=== PATIENT | male | born 1960 | race Hispanic/Latino ===

== ENCOUNTER 2018-10-05 16:27 | Inpatient (IN) | payer SELFPAY ==
[2018-10-05] MEDS ORDERED: Diltiazem 125 MG/25 ML ONE ×2 (16:48→18:38)
[2018-10-05 16:51] LABS: #Basophils 0.1 thou/uL (0.0-0.2); #Eosinphils 0.1 thou/uL (0.0-0.7); #Lymphocytes 2.5 thou/uL (1.20-3.40); #Monocytes 0.9 thou/uL (0.11-0.59); #Neutrophils 6.8 thou/uL (1.40-6.50); %Basophils 0.9 % (0.0-1.0); %Eosinophils 0.7 % (0.0-10.0); %Lymphocytes 24.1 % (21.0-51.0); %Monocytes 8.8 % (0.0-10.0); %Neutrophils 65.5 % (42.0-75.0); Hemoglobin 14.5 g/dL (12.0-16.0); Mean Corpuscular HGB CONC 31.5 g/dL (32.0-36.0); Mean Corpuscular Volume 95.3 fL (78.0-98.0); Mean Platelet Volume 9.6 fL (7.4-10.4); Platelet Count 224 thou/uL (130-400); RBC Distribution Width 12.5 % (11.5-14.5); Red Blood Cell (RBC) Count 4.84 mill/uL (4.20-5.40); White Blood Cell (WBC) Count 10.3 thou/uL (4.8-10.8)
[2018-10-05 17:14] LABS: ALT (SGPT) 21 U/L (8-55); AST (SGOT) 19 U/L (5-34); Albumin 3.8 g/dL (3.5-5.0); Alkaline Phosphatase 56 U/L (40-150); Anion Gap 15 mmol/L (10-20); BUN (Urea Nitrogen) 14 mg/dL (9.8-20.1); Bilirubin, Total 0.8 mg/dL (0.2-1.2); CK (CPK) 48 U/L (29-168); Calc. Creatinine Clearance 0 mL/min (70-130); Calcium 9.3 mg/dL (7.8-10.44); Carbon Dioxide 25 mmol/L (22-29); Chloride 100 mmol/L (98-107); Estimated GFR-MDRD 57; Globulin 3.8 g/dL (2.4-3.5); Glucose 206 mg/dL (70-105); Potassium 4.3 mmol/L (3.5-5.1); Protein, Total 7.6 g/dL (6.0-8.3); Sodium 136 mmol/L (136-145)
[2018-10-05 17:19] LABS: CKMB 1.5 ng/mL (0-6.6); Troponin I Less than 0.010 ng/mL (< 0.028)
--- NOTE | 2018-10-05 17:29 | RAD ---
PORTABLE CHEST: 10/05/18 HISTORY: Shortness of breath. Comparison made to film earlier today ate 3 p.m. FINDINGS/IMPRESSION: Heart is mildly prominent but is accentuated by this projection. Lungs appear clear with no infiltrat e or significant effusion. The left CP angle is poorly evaluated on this portable film but was shown to be obscured on the film earlier today indicating left effusion and left basilar atelectasis. No evidence of interval change. POS: [facility]
[2018-10-05] MEDS ORDERED: Enoxaparin Sodium 80 MG/0.8 ML SYRINGE ONE (18:10)
[2018-10-05] MEDS ORDERED: Enoxaparin Sodium 40 MG/0.4 ML SYRINGE ONE (18:10)
--- NOTE | 2018-10-05 19:03 | PDOC.FPRHP ---
- History of Present Illness Chief Complaint: increased SOB with exertion and laying down History of Present Illness: Patient is a 58YO gentleman w/ a PMH significant for morbid obesity, DMII, and h /o multiple DVTs who presented to the ED with a CC of progressively worsening SOB with exertion and while laying down for the last 2.5 weeks. The patient stated that about 2.5 weeks ago he started to notice that he would wake up at night feeling like he "was drowning" about 2-3 hours after laying down in bed. He was using about 2-3 pillows to prop himself up in bed and would still wake up at night feeling SOB. He also endorsed worsening SOB with exertion. He said that his symptoms had gotten so severe that doing things as simple as walking from his bedroom to his kitchen or taking a shower had become exhausting. He therefore decided that it was time he come the ED for further evaluation. He also endorsed increased swelling in his B/L lower extremities, abdominal tightness or distension, unintentional weight gain, and a cough productive of yellow tinged sputum. He denied any associated chest pain, palpitations, or wheezing. ED Course: Patient was given diltiazem doses of 10, 15, and 20 mg and therapeutic lovenox @ 120mg. He was then started on a diltiazem drip at 5mg/hr. - Allergies/Adverse Reactions Allergies Allergy/AdvReac Type Severity Reaction Status Date / Time No Known Allergies Allergy Verified 10/06/18 04:10 - Home Medications Medication Instructions Recorded Confirmed Type No Known 10/06/18 10/06/18 History - History PMHx: DMII, h/o multiple DVTs, h/o septicemia PSHx: L knee arthroscopy & R knee surgery, lap band surgery in 2004 FHx: Grandmother - DMII Social: Lives with his mother and brother in [place]. Denies any heavy tobacco use , will just occasionally smoke a cigar. Drinks very sporadically. - Vital signs BP: 155/118 HR: 120s-130s RR: 18 Tmax: 98.7F Pox: 98% on RA Wt: 179.441 kg - Physical Exam Constitutional: NAD, awake, alert and oriented, well developed HEENT: normocephalic and atraumatic, conjunctiva clear, grossly normal vision, grossly normal hearing Neck: FROM Heart: normal S1/S2 (tachycardic with an irregularly irregular rhythm), other (~ 1+ pitting edema in B/L LEs to just below the knees) Lungs: CTAB, no respiratory distress, good air movement, no rales/rhonchi Abdomen: soft, non-tender, bowel sounds present, other (distension present) Musculoskeletal: normal structure, ROM grossly normal Neurological: no focal deficit -Neurological: symmetric facial movements & speech Skin: no rash/lesions, no jaundice -Skin: skin changes consistent with chronic venous stasis in B/L LEs Heme/Lymphatic: no unusual bruising or bleeding, no purpura Psychiatric: normal mood and affect, good judgment and insight, intact recent and remote memory FMR H&P: Results - Labs Result Diagrams: 10/06/18 06:09 10/06/18 04:43 Lab results: WBC 10.3 thou/uL (4.8-10.8) 10/05/18 16:35 Hgb 14.5 g/dL (12.0-16.0) 10/05/18 16:35 Hct 46.1 % (36.0-47.0) 10/05/18 16:35 MCV 95.3 fL (78.0-98.0) 10/05/18 16:35 Plt Count 224 thou/uL (130-400) 10/05/18 16:35 Neutrophils % 65.5 % (42.0-75.0) 10/05/18 16:35 Sodium 136 mmol/L (136-145) 10/05/18 16:35 Potassium 4.3 mmol/L (3.5-5.1) 10/05/18 16:35 Chloride 100 mmol/L (98-107) 10/05/18 16:35 Carbon Dioxide 25 mmol/L (22-29) 10/05/18 16:35 BUN 14 mg/dL (9.8-20.1) 10/05/18 16:35 Creatinine 1.00 mg/dL (0.6-1.1) 10/05/18 16:35 Glucose 206 mg/dL (70-105) H 10/05/18 16:35 Calcium 9.3 mg/dL (7.8-10.44) 10/05/18 16:35 Total Bilirubin 0.8 mg/dL (0.2-1.2) 10/05/18 16:35 AST 19 U/L (5-34) 10/05/18 16:35 ALT 21 U/L (8-55) 10/05/18 16:35 Alkaline Phosphatase 56 U/L (40-150) 10/05/18 16:35 Creatine Kinase 48 U/L (29-168) 10/05/18 16:35 CK-MB (CK-2) 1.5 ng/mL (0-6.6) 10/05/18 16:35 B-Natriuretic Peptide 349.2 pg/mL (0-100) H 10/05/18 16:35 Serum Total Protein 7.6 g/dL (6.0-8.3) 10/05/18 16:35 Albumin 3.8 g/dL (3.5-5.0) 10/05/18 16:35 - Radiology Interpretation Chest x-ray Status: report reviewed by me Additional comment: L-sided pleural effusion w/ bibasilar atelectasis. FMR H&P: A/P - Problem List (1) Atrial fibrillation, new onset Current Visit: Yes Status: Acute Priority: High Code(s): I48.91 - UNSPECIFIED ATRIAL FIBRILLATION (2) Acute exacerbation of CHF (congestive heart failure) Current Visit: Yes Status: Acute Code(s): I50.9 - HEART FAILURE, UNSPECIFIED Qualifiers: Heart failure type: unspecified Qualified Code(s): I50.9 - Heart failure, unspecified (3) Diabetes type 2, uncontrolled Current Visit: Yes Status: Chronic Code(s): E11.65 - TYPE 2 DIABETES MELLITUS WITH HYPERGLYCEMIA Qualifiers: Glycemic state: with hyperglycemia Qualified Code(s): E11.65 - Type 2 diabetes mellitus with hyperglycemia (4) History of DVT of lower extremity Current Visit: Yes Status: Acute Code(s): Z86.718 - PERSONAL HISTORY OF OTHER VENOUS THROMBOSIS AND EMBOLISM (5) Morbid obesity with BMI of 40.0-44.9, adult Current Visit: Yes Status: Acute Code(s): E66.01 - MORBID (SEVERE) OBESITY DUE TO EXCESS CALORIES; Z68.41 - BODY MASS INDEX (BMI) 40.0-44.9, ADULT - Plan 58YO very pleasant gentleman w/ a PMH significant for morbid obesity, DMII, and a h/o multiple DVTs who presented to the ED with a CC of worsening SOB with exertion and during sleep that has gotten progressively worse over the last 2.5 weeks who was found to be in a fib with RVR. New onset atrial fibrillation w/ RVR: - Patient was given 3 IV boluses of diltiazem: 10, 15, and 20mg respectively and was then started on a dilt drip at 5mg/hr. Will titrate up PRN. - Will order an echo and consult cardiology in the morning. - Will check a CBC, TSH, Mg, and phos level. Will order a FLP for in the AM as well for CV risk stratification. - Was given 120mg of lovenox in the ED. Will give an additional 60mg tonight and continue on therapeutic lovenox dose at max dose of 180mg BID. - Will make NPO after midnight in anticipation of need for possible cardioversion if patient does not convert overnight. Acute CHF exacerbation: - Patient presented with classic sxs of CHF exacerbation and appears mildly volume overloaded. However, stable on RA not requiring any supplemental O2. - Will give a one-time dose of 40mg IV lasix and check a BMP in the AM. - Will get QD weights, strict I&Os and start on a HH, low salt, fluid- restricted up to 1500mL, CC diet. - Will get an echo in the AM and consult cardiology. - Risk stratification testing as described above. Poorly controlled DMII: - Random BG level of 206 on presentation w/ an A1c of 9.5 signaling patient has poorly controlled DMII. - Will start on mild SSI since patient is insulin naive and order ACHS BG checks and hypoglycemia protocol. - Will consider initiating metformin therapy in the AM in addition to a GLP-1 agonist. - Will start on CC diet and order DM education. - FLP pending for the AM as patient will likely also benefit from statin therapy. h/o DVT: - Aware and patient states he is currently not on any anticoagulation at home. - Labwork pending to risk stratify. - Currently on therapeutic lovenox for atrial fibrillation. FMR H&P: Upper Level - Pertinent history Mr. Samuels is a 58 yo M with a PMHx of morbid obesity, T2DM and h/o multiple DVTs (not on chronic anticoagulation) who presented to the ED with a cc of worsening shortness of breath over the last 2 weeks as well as decreased appetite and abdominal fullness. He has also noticed difficulty lying flat with minimal relief propping up with pillows. He has woken up multiple times feeling short of breath. He also endorses activity intolerance getting winded with any activity. He denies palpitations or chest pain. - Pertinent findings EKG: a fib with RVR CXR reviewed Gen: awake, alert, oriented x3 HEENT: atraumatic, normocephalic CV: irregularly irregular, tachycardic RESP: CTAB, diminished at bases BL ABD: nontender, significant abdominal obesity EXT: skin darknening BL lower extremities, 1+ pitting edema to knees BL SKIN: darkening on BL lower shins/ankles, nails thickened PULSES: 1+ BL radial - Plan Date/Time: 10/05/18 1901 58 yo M with new onset a fib with RVR 1. New onset a fib with RVR: s/p 3 dilt bolus. Will start drip at 5 and titrate with goal rate control < 100-110 bpm. Monitor for symptoms. BP stable at this time and asymptomatic. Echo and cardiology consult in the am. FLP, electrolytes and DM workup as below. Tx lovenox. NPO at MN with fluid restr to 1500 mL. Daily weights. 2. Suspected CHF: BNP elevated. Symptoms c/w CHF. Will give 40 IV lasix, fluid restrict and monitor strict I/Os. 3. H/o T2DM: Will check a1c and start mild SSI. Will recommend statin pending FLP 4. H/o DVT: Per patient was not indicated to be on assisted anticoagulation. Will recommend f/u outpatient for risk stratification. At this time, requiring tx lovenox for a fib with RVR. 5. Morbid obesity: Patient has had lap band but has not followed up in years. Recommend OP f/u and weight loss to aid in curbing comorbidities. I, Xi Gallo MD, PGY-3, have evaluated this patient and agree with findings/ plan as outlined by international controller resident. Pertinent changes/additions are listed here. Attending Addendum - Attending Addendum Date/Time: 10/06/18 1122 I personally evaluated the patient and discussed the management with Dr. Miner/ Sabino. I agree with the History, Examination, Assessment and Plan documented above with any addition or exceptions noted below.
[2018-10-05] MEDS ORDERED: Ondansetron PF 4 MG/2 ML Vial IVP PRN (19:47)
[2018-10-05] MEDS ORDERED: Furosemide 40 MG/4 ML VIAL SLOW IVP SCH (20:00)
[2018-10-05] MEDS ORDERED: Dextrose 5% in Water 1,000 ML IV PRN (20:24)
[2018-10-05] MEDS ORDERED: Dextrose 50% Abboject 50 ML SYRINGE SLOW IVP PRN (20:24)
[2018-10-05] MEDS ORDERED: Diltiazem 125 MG in Sodium Chloride 0.9% 100 ML IVPB SCH ×2 (20:30→21:00)
[2018-10-05 20:47] VITALS: BMI 58.3
[2018-10-05 20:59] LABS: Hemoglobin A1c 9.5 % (4.0-6.0)
[2018-10-05] MEDS ORDERED: Enoxaparin Sodium 60 MG/0.6 ML SYRINGE SC SCH (21:00)
[2018-10-05] MEDS ORDERED: Guaifenesin DM 100-10/5 ML UDCUP PO PRN (22:39)
[2018-10-05] MEDS: Benzonatate 100 MG CAP PO PRN (22:52)
[2018-10-05 23:11] LABS: Troponin I 0.017 ng/mL (< 0.028)
[2018-10-06 05:19] LABS: Anion Gap 12 mmol/L (10-20); BUN (Urea Nitrogen) 13 mg/dL (8.4-25.7); Calc. Creatinine Clearance 179 mL/min (70-130); Calcium 8.9 mg/dL (7.8-10.44); Carbon Dioxide 24 mmol/L (22-29); Cardiac Risk 3.4 (Less than 4.5); Chloride 103 mmol/L (98-107); Cholesterol 128 mg/dl (< 200 Desired); Estimated GFR-MDRD Greater than 90; Glucose 208 mg/dL (70-105); HDL Cholesterol 38 mg/dL (>60 Neg Risk); LDL Cholesterol, Calculated 73 mg/dL; Magnesium 1.7 mg/dL (1.6-2.6); Phosphorus 3.8 mg/dL (2.3-4.7); Potassium 3.9 mmol/L (3.5-5.1); Sodium 135 mmol/L (136-145); Triglycerides 86 mg/dL (Less than 150)
[2018-10-06 06:19] LABS: #Eosinphils 0.1 thou/uL (0.0-0.7); #Lymphocytes 2.1 thou/uL (1.20-3.40); #Monocytes 0.7 thou/uL (0.11-0.59); #Neutrophils 5.1 thou/uL (1.40-6.50); %Basophils 0.5 % (0.0-1.0); %Lymphocytes 26.5 % (21.0-51.0); %Monocytes 8.5 % (0.0-10.0); %Neutrophils 63.6 % (42.0-75.0); Hemoglobin 12.6 g/dL (14.0-18.0); Mean Corpuscular HGB CONC 32.3 g/dL (32.0-36.0); Mean Corpuscular Hemoglobin 30.5 pg (27.0-31.0); Mean Corpuscular Volume 94.4 fL (78.0-98.0); Mean Platelet Volume 9.2 fL (7.4-10.4); Platelet Count 192 thou/uL (130-400); RBC Distribution Width 12.4 % (11.5-14.5); Red Blood Cell (RBC) Count 4.13 mill/uL (4.70-6.10)
[2018-10-06] MEDS ORDERED: metFORMIN 500 MG TAB PO SCH (08:00)
[2018-10-06] MEDS: Benzonatate 100 MG CAP PO PRN (08:40)
[2018-10-06] MEDS ORDERED: Enoxaparin Sodium 100 MG/ML SYRINGE SC SCH ×2 (09:00→21:00)
[2018-10-06] MEDS ORDERED: Lisinopril 2.5 MG TAB PO SCH (09:00)
[2018-10-06] MEDS ORDERED: Enoxaparin Sodium 80 MG/0.8 ML SYRINGE SC SCH (09:00)
--- NOTE | 2018-10-06 10:37 | PDOC.FM ---
- Subjective Subjective: Patient denies SOB, palpitations, chest pain. No other complaints at this time. - Objective MAR Reviewed: Yes Vital Signs & Weight: Vital Signs (12 hours) Temp Pulse Resp BP Pulse Ox 10/06/18 08:40 110 H 10/06/18 08:00 94 L 10/06/18 07:36 98 F 110 H 18 124/57 L 93 L 10/06/18 03:24 98.2 F 109 H 19 139/106 H 93 L 10/06/18 00:00 133 H 172/80 H Weight Weight 132.313 kg I&O: 10/05/18 10/06/18 10/07/18 06:59 06:59 06:59 Intake Total 598 Output Total 1650 Balance -1052 Result Diagrams: 10/06/18 06:09 10/06/18 04:43 <Charis Nichole - Last Filed: 10/06/18 10:32> - Objective Vital Signs & Weight: Vital Signs (12 hours) Temp Pulse Resp BP Pulse Ox 10/06/18 08:40 110 H 10/06/18 08:00 94 L 10/06/18 07:36 98 F 110 H 18 124/57 L 93 L 10/06/18 03:24 98.2 F 109 H 19 139/106 H 93 L 10/06/18 00:00 133 H 172/80 H Weight Weight 132.313 kg I&O: 10/05/18 10/06/18 10/07/18 06:59 06:59 06:59 Intake Total 598 Output Total 1650 Balance -1052 Result Diagrams: 10/06/18 06:09 10/06/18 04:43 <Jose Ramon Talbot - Last Filed: 10/06/18 11:35> Phys Exam - Physical Examination Constitutional: NAD morbidly obese HEENT: PERRLA, moist MMs Neck: full ROM Respiratory: no wheezing, no rales, clear to auscultation bilateral Cardiovascular: RRR, no significant murmur Gastrointestinal: soft, non-tender, no distention Musculoskeletal: no edema, pulses present Neurological: non-focal, moves all 4 limbs Psychiatric: normal affect, A&O x 3 Skin: no rash, normal turgor <Charis Nichole - Last Filed: 10/06/18 10:32> Dx/Plan (1) Atrial fibrillation, new onset Code(s): I48.91 - UNSPECIFIED ATRIAL FIBRILLATION Status: Acute (2) Diabetes type 2, uncontrolled Code(s): E11.65 - TYPE 2 DIABETES MELLITUS WITH HYPERGLYCEMIA Status: Chronic Qualifiers: Glycemic state: with hyperglycemia Qualified Code(s): E11.65 - Type 2 diabetes mellitus with hyperglycemia (3) Hypertension Code(s): I10 - ESSENTIAL (PRIMARY) HYPERTENSION Status: Acute (4) Acute exacerbation of CHF (congestive heart failure) Code(s): I50.9 - HEART FAILURE, UNSPECIFIED Status: Acute Qualifiers: Heart failure type: unspecified Qualified Code(s): I50.9 - Heart failure, unspecified (5) History of DVT of lower extremity Code(s): Z86.718 - PERSONAL HISTORY OF OTHER VENOUS THROMBOSIS AND EMBOLISM Status: Acute (6) CHA on CPAP Code(s): G47.33 - OBSTRUCTIVE SLEEP APNEA (ADULT) (PEDIATRIC); Z99.89 - DEPENDENCE ON OTHER ENABLING MACHINES AND DEVICES Status: Acute (7) Morbid obesity with BMI of 40.0-44.9, adult Code(s): E66.01 - MORBID (SEVERE) OBESITY DUE TO EXCESS CALORIES; Z68.41 - BODY MASS INDEX (BMI) 40.0-44.9, ADULT Status: Acute - Plan Plan: 58 yo M with new onset Afib with RVR New onset Afib with RVR -Currently rate controlled <110 on Dilt drip at 10units; therapeutic lovenox- continue current medical mgmt -TSH, electrolytes negative, FLP nml, CE negative x3 -Patient has not seen PCP in years, not taking any meds -Contributing factors: uncontrolled hypertension, new onset CHF (elevated BNP) -Echo pending -Will consult cardiology, recs appreciated regarding oral medication transition & further management DM2, uncontrolled -A1c 9.5 -Will start on metformin Acute CHF exacerbation -fluid restrict diet, give lasix as needed -non-hypoxic on RA -strict I/O, daily weights -pending echo HTN -Start on lisinopril Hx of DVTs -On therpeutic lovenox CHA on CPAP -Continue CPAP while in hospital Morbid obesity -counseled on weight loss Dvt ppx: th. lovenox GI ppx: none Discussed with Dr. Talbot <Charis Nichole - Last Filed: 10/06/18 10:32> (1) Atrial fibrillation, new onset Code(s): I48.91 - UNSPECIFIED ATRIAL FIBRILLATION Status: Acute (2) Acute exacerbation of CHF (congestive heart failure) Code(s): I50.9 - HEART FAILURE, UNSPECIFIED Status: Acute Qualifiers: Heart failure type: unspecified Qualified Code(s): I50.9 - Heart failure, unspecified (3) Diabetes type 2, uncontrolled Code(s): E11.65 - TYPE 2 DIABETES MELLITUS WITH HYPERGLYCEMIA Status: Chronic Qualifiers: Glycemic state: with hyperglycemia Qualified Code(s): E11.65 - Type 2 diabetes mellitus with hyperglycemia (4) History of DVT of lower extremity Code(s): Z86.718 - PERSONAL HISTORY OF OTHER VENOUS THROMBOSIS AND EMBOLISM Status: Acute (5) Morbid obesity with BMI of 40.0-44.9, adult Code(s): E66.01 - MORBID (SEVERE) OBESITY DUE TO EXCESS CALORIES; Z68.41 - BODY MASS INDEX (BMI) 40.0-44.9, ADULT Status: Acute <Jose Ramon Talbot - Last Filed: 10/06/18 11:35> Attending Addendum - Attending Addendum Date/Time: 10/06/18 1433 I personally evaluated the patient and discussed the management with Dr. Nichole. I agree with the History, Examination, Assessment and Plan documented above with any addition or exceptions noted below. Patient feeling improved. TSH normal. Echo pending. Continue Dilt drip and consult cardiology for new onset Afib. Continue anticoagulation. Diurese if needed. Arrange for Bipap at night for his chronic CHA. <Jose Ramon Talbot - Last Filed: 10/06/18 11:35>
--- NOTE | 2018-10-06 15:09 | CON ---
DATE OF CONSULTATION: 10/06/2018 CARDIOLOGY CONSULTATION REASON FOR CONSULTATION: Atrial fibrillation with rapid ventricular response. HISTORY OF PRESENT ILLNESS: Mr. Samuels is a very pleasant 58-year-old white gentleman who comes t o the hospital for shortness of breath. He has noticed that for the last few weeks he has not been a ble to lay down on his back without feeling short-winded. He has always used about 3 pills, but at t his time he had to fold the pills in half to try to be comfortable. He would fall asleep and he woul d wake up a few hours later gasping for air. He would have to sit up to breathe better. It got to t he point where it was extremely bad. He could not even lay back without choking, so he decided to co me in for evaluation. He was found to be in atrial fibrillation with RVR and he was started on dilti azem drip slowing down and he is already feeling a little bit better, but Cardiology has been consult ed for his atrial fibrillation and possible new onset heart failure. He has never had any heart prob lems in the past. He has never seen a licensed master social worker before. PAST MEDICAL HISTORY: 1. Type 2 diabetes. 2. History of multiple DVTs in the past. He has had at least 2 in the right leg. I asked him if he had ever been told he had a clotting disorder. He tells me that he thinks it was for multiple traum as. 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 SURGICAL HISTORY: 1. Left knee arthroscopy. 2. Right knee surgery. 3. Laparoscopic band surgery in 2004. FAMILY HISTORY: Noncontributory. SOCIAL HISTORY: Lives with mother and brother. No alcohol, tobacco, or drugs. He smokes cigar occa sionally. Social alcohol use. OUTPATIENT MEDICATIONS: None. ALLERGIES: No known drug allergies. REVIEW OF SYSTEMS: A 12-point review of systems was done and it is all negative unless stated in the history of present illness. PHYSICAL EXAMINATION: VITAL SIGNS: Temperature 97.9, pulse 116, respiration rate 18, satting 95% on 2 liters and blood pre ssure 125/65. GENERAL: Awake, alert, oriented x3, in no distress. HEENT: Normocephalic, atraumatic. NECK: Supple. LUNGS: Distant but I can hear specifically any crackles. CARDIOVASCULAR: S1, S2, no S3, S4, no murmurs. ABDOMEN: Soft with bowel sounds. EXTREMITIES: 2+ edema. SKIN: Warm and dry. LABORATORY DATA: Laboratory work was reviewed. His CBC; white count of 10.3 and on arrival now 8.0, hemoglobin went from 14.5-12.6 and platelet count 192. Chemistry was unremarkable. Sugar 208, trig lycerides of 86, cholesterol total 128, LDL of 73, HDL of 38. TSH was normal. IMAGING DATA: Chest x-ray was reviewed, not well penetrated due to size, could have a small pleural effusion on the left side, but lungs appear clear. ASSESSMENT: 1. New onset of atrial fibrillation with rapid ventricular response. 2. Possible new onset heart failure, unknown if it systolic versus diastolic. 3. Morbid obesity. 4. Diabetes on no medications. 5. History of deep vein thrombosis. PLAN: 1. Continue rate control with diltiazem drip. 2. We would continue full anticoagulation with Lovenox subcutaneous in case he needs to have a heart catheterization in the next few days. 3. Would consider doing a CT per PE protocol given his history of DVTs and new onset atrial fibrilla tion. 4. Echocardiogram pending. This will pretty much guide our therapy as I am not sure if this is a ne w onset cardiomyopathy that is just complicated with atrial fibrillation versus his atrial fibrillati on making him symptomatic and causing him to have fluid overload and having PND and orthopnea. Eithe r way he needs a dose of IV Lasix which has already received and see how he does with this. We will adjust the Lovenox dose to 1 mg per kilo b.i.d. Thank you for letting us to participate in the care of your patient. We will continue to follow. Mo re recommendations pending results of echocardiogram.
[2018-10-06] MEDS: metFORMIN 500 MG TAB PO SCH (17:32)
[2018-10-06] MEDS: Atorvastatin Calcium 40 MG TAB PO SCH (20:19)
[2018-10-06] MEDS ORDERED: Enoxaparin Sodium 30 MG/0.3 ML SYRINGE SC SCH (21:00)
[2018-10-06] MEDS ORDERED: Loperamide HCl 2 MG CAP PO PRN (23:06)
--- NOTE | 2018-10-07 06:44 | PDOC.FM ---
- Subjective Subjective: No acute events overnight. No concerns at this time. - Objective MAR Reviewed: Yes Vital Signs & Weight: Vital Signs (12 hours) Temp Pulse Resp BP BP Pulse Ox 10/07/18 03:48 98.0 F 81 20 134/89 100 10/06/18 23:13 99 16 97 10/06/18 23:08 98.3 F 95 20 123/81 95 10/06/18 20:16 99.0 F 115 H 18 177/102 H 99 Weight Weight 177.082 kg I&O: 10/05/18 10/06/18 10/07/18 06:59 06:59 06:59 Intake Total 598 1505 Output Total 1650 925 Balance -1052 580 Result Diagrams: 10/06/18 06:09 10/06/18 04:43 <Charis Nichole - Last Filed: 10/07/18 10:09> - Objective Vital Signs & Weight: Vital Signs (12 hours) Temp Pulse Resp BP BP BP Pulse Ox 10/07/18 09:25 102 H 10/07/18 08:00 97.9 F 102 H 16 127/71 95 10/07/18 03:48 98.0 F 81 20 134/89 100 10/06/18 23:13 99 16 97 10/06/18 23:08 98.3 F 95 20 123/81 95 Weight Weight 177.082 kg I&O: 10/06/18 10/07/18 10/08/18 06:59 06:59 06:59 Intake Total 598 1505 Output Total 1650 925 Balance -1052 580 Result Diagrams: 10/06/18 06:09 10/06/18 04:43 <Jose Ramon Talbot - Last Filed: 10/07/18 11:07> Phys Exam - Physical Examination Constitutional: NAD HEENT: moist MMs, sclera anicteric Neck: full ROM Respiratory: no wheezing, wheezing present, clear to auscultation bilateral difficulty assessing due to body habitus Cardiovascular: RRR, no significant murmur, no rub Gastrointestinal: soft, non-tender, no distention Musculoskeletal: no edema, pulses present BLE edema with stasis dermatitis Neurological: non-focal, moves all 4 limbs Lymphatic: no nodes Psychiatric: normal affect, A&O x 3 Skin: cap refill <2 seconds <Charis Nichole - Last Filed: 10/07/18 10:09> Dx/Plan (1) Atrial fibrillation, new onset Code(s): I48.91 - UNSPECIFIED ATRIAL FIBRILLATION Status: Acute (2) Diabetes type 2, uncontrolled Code(s): E11.65 - TYPE 2 DIABETES MELLITUS WITH HYPERGLYCEMIA Status: Chronic Qualifiers: Glycemic state: with hyperglycemia Qualified Code(s): E11.65 - Type 2 diabetes mellitus with hyperglycemia (3) Hypertension Code(s): I10 - ESSENTIAL (PRIMARY) HYPERTENSION Status: Acute (4) Acute exacerbation of CHF (congestive heart failure) Code(s): I50.9 - HEART FAILURE, UNSPECIFIED Status: Acute Qualifiers: Heart failure type: unspecified Qualified Code(s): I50.9 - Heart failure, unspecified (5) History of DVT of lower extremity Code(s): Z86.718 - PERSONAL HISTORY OF OTHER VENOUS THROMBOSIS AND EMBOLISM Status: Acute (6) CHA on CPAP Code(s): G47.33 - OBSTRUCTIVE SLEEP APNEA (ADULT) (PEDIATRIC); Z99.89 - DEPENDENCE ON OTHER ENABLING MACHINES AND DEVICES Status: Acute (7) Morbid obesity with BMI of 40.0-44.9, adult Code(s): E66.01 - MORBID (SEVERE) OBESITY DUE TO EXCESS CALORIES; Z68.41 - BODY MASS INDEX (BMI) 40.0-44.9, ADULT Status: Acute - Plan Plan: 58 yo M with new onset Afib with RVR New onset Afib with RVR -Was not rate controlled overnight pulse in 140s while on dilt drip, currently rate controlled -Continue th. lovenox -Pending echo results to guide management, Dr. Read is following -CTA today to continue workup of etiology HTN -BPs into high 190s -There could be fluid overload component from acute CHF -Will inc. lisinopril to 5mg -Will also give dose of lasix DM2, uncontrolled -Continue metformin Acute CHF exacerbation -fluid restrict diet -non-hypoxic on RA, had few hypoxic episodes last night requiring supp. O2 -strict I/O, daily weights -pending echo Hx of DVTs -On therapeutic lovenox CHA -Continue CPAP while in hospital Morbid obesity -counseled on weight loss Dvt ppx: th. lovenox GI ppx: none Discussed with Dr. Talbot <Charis Nichole - Last Filed: 10/07/18 10:09> (1) Atrial fibrillation, new onset Code(s): I48.91 - UNSPECIFIED ATRIAL FIBRILLATION Status: Acute (2) Acute exacerbation of CHF (congestive heart failure) Code(s): I50.9 - HEART FAILURE, UNSPECIFIED Status: Acute Qualifiers: Heart failure type: unspecified Qualified Code(s): I50.9 - Heart failure, unspecified (3) Diabetes type 2, uncontrolled Code(s): E11.65 - TYPE 2 DIABETES MELLITUS WITH HYPERGLYCEMIA Status: Chronic Qualifiers: Glycemic state: with hyperglycemia Qualified Code(s): E11.65 - Type 2 diabetes mellitus with hyperglycemia (4) History of DVT of lower extremity Code(s): Z86.718 - PERSONAL HISTORY OF OTHER VENOUS THROMBOSIS AND EMBOLISM Status: Acute (5) Morbid obesity with BMI of 40.0-44.9, adult Code(s): E66.01 - MORBID (SEVERE) OBESITY DUE TO EXCESS CALORIES; Z68.41 - BODY MASS INDEX (BMI) 40.0-44.9, ADULT Status: Acute <Jose Ramon Talbot - Last Filed: 10/07/18 11:07> Attending Addendum - Attending Addendum Date/Time: 10/07/18 1104 I personally evaluated the patient and discussed the management with Dr. Nichole. I agree with the History, Examination, Assessment and Plan documented above with any addition or exceptions noted below. Patient now rate controlled on Dilt. Awaiting Echo and further cardiology recs. Will obtain CTA as this could be due to PE in setting of his history of DVT not on chronic OAC. Continue on th. lovenox for now. <Jose Ramon Talbot - Last Filed: 10/07/18 11:07>
[2018-10-07] MEDS: metFORMIN 500 MG TAB PO SCH ×2 (09:24→17:17)
[2018-10-07] MEDS: Enoxaparin Sodium 80 MG/0.8 ML SYRINGE SC SCH ×2 (09:25→19:49)
[2018-10-07] MEDS: Enoxaparin Sodium 100 MG/ML SYRINGE SC SCH ×2 (09:25→19:49)
[2018-10-07] MEDS: Lisinopril 5 MG TAB PO SCH (09:25)
[2018-10-07] MEDS ORDERED: ISOVUE-370 76%-LOCM 1 ML ONE (10:13)
[2018-10-07] MEDS: HumaLOG 300 UNITS/3 ML VIAL SC PRN (12:56)
--- NOTE | 2018-10-07 14:34 | PDOC.CTH ---
Cardiology Progress Note - Subjective No new issues. Breathing better. He liked using a BiPAP overnight. - Objective Vital Signs Temp Pulse Resp BP BP BP Pulse Ox 10/07/18 12:00 98 F 98 18 137/81 95 10/07/18 09:25 102 H 10/07/18 08:00 97.9 F 102 H 16 127/71 95 10/07/18 03:48 98.0 F 81 20 134/89 100 Weight 390 lb 6.4 oz 10/06/18 10/07/18 10/08/18 06:59 06:59 06:59 Intake Total 598 1505 240 Output Total 1650 925 Balance -1052 580 240 - Physical Examination General/Neuro: alert & oriented x3, NAD Neck: no JVD present Lungs: CTA, unlabored respirations Heart: RRR Abdomen: NT/ND Extremities: + edema B (2+) - Telemetry Telemetry Rhythm: Afb HR 80's. - Labs Result Diagrams: 10/06/18 06:09 10/06/18 04:43 Troponin/CKMB CK-MB (CK-2) 1.5 ng/mL (0-6.6) 10/05/18 16:35 Troponin I 0.017 ng/mL (< 0.028) 10/05/18 22:38 - Assessment/Plan 1. Afib RVR, new onset. 2. New onset dilated CM EF at 30-35% 3. Morbid obesity. PLAN: - Continue ACEI. - Will switch diltiazem gtt to PO BB. - Will plan on further risk stratification with a [facility]. He is still volume up so will try to dry him up some more and plan on [facility] Wednesday.
--- NOTE | 2018-10-07 15:03 | CT ---
CT ANGIOGRMA CHEST WITH CONTRAST: HISTORY: Chest pain and shortness of breath. COMPARISON: Radiograph of 10/05/2018. FINDINGS: CT angiogram of the chest performed after the intravenous administration of contrast. Three-D render ing was provided. No pericardial effusion. Marked increased in mediastinal fat. The thyroid is unremarkable. Moderate-sized layering bilateral pleural effusions. LAP band is in place. There is a proximal segmental pulmonary arterial filling defect. Mild pulmonary venous congestion. No acute osseous abnormality. IMPRESSION: 1. Moderate bilateral pleural effusions. 2. Mild pulmonary venous congestion. 3. No proximal segmental pulmonary arterial filling defect. POS: [facility]
[2018-10-07] MEDS ORDERED: Furosemide 40 MG/4 ML VIAL SLOW IVP SCH (18:00)
[2018-10-07] MEDS: Atorvastatin Calcium 40 MG TAB PO SCH (19:48)
[2018-10-07] MEDS: Metoprolol Tartrate 25 MG TAB PO SCH (19:49)
[2018-10-08 05:35] LABS: Platelet Count 196 thou/uL (130-400)
--- NOTE | 2018-10-08 05:44 | PDOC.FM ---
- Subjective Subjective: Mr. Samuels reports he did not sleep as well last night with the hospital CPAP. Notes continued SOB with exertion. Denies CP or heart palpitations. Has had a couple watery BMs. Says LE swelling has improved some. Feels nervous about cath on Wednesday and needles associated with procedure. - Objective MAR Reviewed: Yes Vital Signs & Weight: Vital Signs (12 hours) Temp Pulse Resp BP BP Pulse Ox 10/08/18 04:00 98.1 F 71 20 114/71 96 10/08/18 00:00 84 115/73 10/07/18 19:45 98.5 F 107 H 18 139/85 96 Weight Weight 177.082 kg I&O: 10/06/18 10/07/18 10/08/18 06:59 06:59 06:59 Intake Total 598 1505 1320 Output Total 1650 925 550 Balance -1052 580 770 Result Diagrams: 10/08/18 05:04 10/08/18 05:04 <Vangie Mcclendon - Last Filed: 10/08/18 07:44> - Objective Vital Signs & Weight: Vital Signs (12 hours) Temp Pulse Resp BP Pulse Ox 10/08/18 07:50 97.9 F 95 20 139/85 95 10/08/18 04:00 98.1 F 71 20 114/71 96 10/08/18 00:00 84 115/73 Weight Weight 173.272 kg I&O: 10/07/18 10/08/18 10/09/18 06:59 06:59 06:59 Intake Total 1505 1905 Output Total 925 825 Balance 580 1080 Result Diagrams: 10/08/18 05:04 10/08/18 05:04 <Jose Ramon Talbot - Last Filed: 10/08/18 10:05> Phys Exam - Physical Examination Constitutional: NAD HEENT: moist MMs Respiratory: clear to auscultation bilateral Cardiovascular: no significant murmur, irregular (atrial fibrillation) Gastrointestinal: soft (obese), non-tender, no distention, positive bowel sounds Musculoskeletal: edema present (+4 pitting edema LE b/l, chronic venous stasis skin changes) Neurological: moves all 4 limbs Psychiatric: normal affect Skin: normal turgor <Vangie Mcclendon - Last Filed: 11/24/18 07:44> Dx/Plan (1) Atrial fibrillation, new onset Code(s): I48.91 - UNSPECIFIED ATRIAL FIBRILLATION Status: Acute (2) New onset of congestive heart failure Code(s): I50.9 - HEART FAILURE, UNSPECIFIED Status: Acute (3) Acute exacerbation of CHF (congestive heart failure) Code(s): I50.9 - HEART FAILURE, UNSPECIFIED Status: Acute Qualifiers: Heart failure type: unspecified Qualified Code(s): I50.9 - Heart failure, unspecified (4) History of DVT of lower extremity Code(s): Z86.718 - PERSONAL HISTORY OF OTHER VENOUS THROMBOSIS AND EMBOLISM Status: Acute (5) Hypertension Code(s): I10 - ESSENTIAL (PRIMARY) HYPERTENSION Status: Acute (6) CHA on CPAP Code(s): G47.33 - OBSTRUCTIVE SLEEP APNEA (ADULT) (PEDIATRIC); Z99.89 - DEPENDENCE ON OTHER ENABLING MACHINES AND DEVICES Status: Acute (7) Diabetes type 2, uncontrolled Code(s): E11.65 - TYPE 2 DIABETES MELLITUS WITH HYPERGLYCEMIA Status: Chronic Qualifiers: Glycemic state: with hyperglycemia Qualified Code(s): E11.65 - Type 2 diabetes mellitus with hyperglycemia (8) Morbid obesity with BMI of 40.0-44.9, adult Code(s): E66.01 - MORBID (SEVERE) OBESITY DUE TO EXCESS CALORIES; Z68.41 - BODY MASS INDEX (BMI) 40.0-44.9, ADULT Status: Acute - Plan Plan: 58 yo M with new onset Afib with RVR New onset Afib with RVR -currently rate controlled, dilt gtt planned to be stopped yesterday was not discontinued until early this morning. Now on metoprolol 25 bid. - tele overnight, rate was up to 130s-150s for a time but now 70s-90s -Continue th. lovenox -Echo showed 30-35% EF - CTA showed mod b/l pleural effusions, venous congestion, no prox segmental pulmonary artery filling defect -Appreciate recs from Dr. Read, plan for [facility] Wednesday New onset CHF presenting with acute CHF exacerbation -fluid restriction - EF 30-35% -strict I/O, daily weights - diuresing well with good urine output. Down 8 lbs. - Lasix IVP 40 BID HTN -BPs into high 190s -There could be fluid overload component from acute CHF -Continue increased lisinopril dose of 5mg. BP stable. DM2, uncontrolled - Continue metformin - SSI, has required 3 u in past 24 hrs - A1c 9.5 Hx of DVTs -On therapeutic lovenox CHA -Continue CPAP while in hospital Morbid obesity -counseled on weight loss Dvt ppx: therapeutic lovenox GI ppx: none Dispo: pending cath Wednesday <Vangie Mcclendon - Last Filed: 10/08/18 07:44> (1) Atrial fibrillation, new onset Code(s): I48.91 - UNSPECIFIED ATRIAL FIBRILLATION Status: Acute (2) Acute exacerbation of CHF (congestive heart failure) Code(s): I50.9 - HEART FAILURE, UNSPECIFIED Status: Acute Qualifiers: Heart failure type: unspecified Qualified Code(s): I50.9 - Heart failure, unspecified (3) Diabetes type 2, uncontrolled Code(s): E11.65 - TYPE 2 DIABETES MELLITUS WITH HYPERGLYCEMIA Status: Chronic Qualifiers: Glycemic state: with hyperglycemia Qualified Code(s): E11.65 - Type 2 diabetes mellitus with hyperglycemia (4) History of DVT of lower extremity Code(s): Z86.718 - PERSONAL HISTORY OF OTHER VENOUS THROMBOSIS AND EMBOLISM Status: Acute (5) Morbid obesity with BMI of 40.0-44.9, adult Code(s): E66.01 - MORBID (SEVERE) OBESITY DUE TO EXCESS CALORIES; Z68.41 - BODY MASS INDEX (BMI) 40.0-44.9, ADULT Status: Acute <Jose Ramon Talbot - Last Filed: 10/08/18 10:05> Attending Addendum - Attending Addendum Date/Time: 10/08/18 1004 I personally evaluated the patient and discussed the management with Dr. Ha. I agree with the History, Examination, Assessment and Plan documented above with any addition or exceptions noted below. Patient doing well this morning. Echo completed and is now rate controlled off Diltiazem. Will increase Metoprolol today. Plan is for C on Wednesday and continued diuresis until then. <Jose Ramon Talbot - Last Filed: 10/08/18 10:05>
[2018-10-08 05:57] LABS: Calc. Creatinine Clearance 249 mL/min (70-130); Estimated GFR-MDRD Greater than 90
[2018-10-08] MEDS: Furosemide 40 MG/4 ML VIAL SLOW IVP SCH ×2 (06:15→13:52)
[2018-10-08] MEDS ORDERED: Sodium Chloride 0.9% 10 ML ONE (08:40)
[2018-10-08] MEDS: Lisinopril 5 MG TAB PO SCH (09:02)
[2018-10-08] MEDS: Metoprolol Tartrate 25 MG TAB PO SCH (09:02)
[2018-10-08] MEDS: metFORMIN 500 MG TAB PO SCH ×2 (09:02→16:15)
[2018-10-08] MEDS: Enoxaparin Sodium 80 MG/0.8 ML SYRINGE SC SCH ×2 (09:02→21:14)
[2018-10-08] MEDS: Enoxaparin Sodium 100 MG/ML SYRINGE SC SCH ×2 (09:03→21:14)
[2018-10-08] MEDS ORDERED: Metoprolol Tartrate 25 MG TAB PO SCH (09:45)
[2018-10-08] MEDS: HumaLOG 300 UNITS/3 ML VIAL SC PRN (11:02)
[2018-10-08] MEDS: Atorvastatin Calcium 40 MG TAB PO SCH (21:13)
[2018-10-08] MEDS: Metoprolol Tartrate 50 MG TAB PO SCH (21:14)
--- NOTE | 2018-10-08 21:15 | PDOC.CTH ---
<Sofia Juan - Last Filed: 10/08/18 21:50> Cardiology Progress Note - Subjective The pt seen and examined. No overnight events. No cardiac complaints. - Objective Vital Signs Temp Pulse Pulse Pulse Resp BP BP 10/08/18 19:30 98.4 F 52 L 18 10/08/18 16:22 98.4 F 89 20 10/08/18 11:32 98.2 F 85 20 10/08/18 11:09 119 H 92 135/105 H 123/95 H BP Pulse Ox Pulse Ox Pulse Ox 10/08/18 19:30 135/100 H 95 10/08/18 16:22 150/86 H 94 L 10/08/18 11:32 132/92 H 96 10/08/18 11:09 94 L 96 Weight 382 lb 10/07/18 10/08/18 10/09/18 06:59 06:59 06:59 Intake Total 1505 1905 750 Output Total 919 217 2377 Balance 580 0787 -0406 - Physical Examination General/Neuro: alert & oriented x3 Neck: no JVD present Lungs: other: (diminished at bases) Heart: other: (irregular) Abdomen: soft Extremities: other: (4+ pitting BLE edema) - Labs Result Diagrams: 10/08/18 05:04 10/08/18 05:04 Troponin/CKMB CK-MB (CK-2) 1.5 ng/mL (0-6.6) 10/05/18 16:35 Troponin I 0.017 ng/mL (< 0.028) 10/05/18 22:38 - Assessment/Plan 1. New onset Afib with RVR - Well controlled HR with BBlocker. On Lovenox BID; cont. to monitor on tele 2. New onset dilated CM EF at 30-35% - stable with Lasix IV 40mg BID, BBlocker, and Lisinopril; plan on [facility] Wednesday. 3. HTN - stable 4. Sleep apnea with Cpap - 5. DM type 2 - managed by PCP 6. Hx of DVT - 7. Morbid obesity - 8. Hyperlipidemia - on Statin MAR reviewed * RENETTA wrap for BLE edema. Instructed to elevate his BLE. <addendum> HR was elevated and sustains to 110-120s. Dig IV will give. Review of Systems - Review of Systems Constitutional: reports: no symptoms reported EENTM: reports: no symptoms reported Respiratory: reports: no symptoms reported Cardiac (ROS): reports: no symptoms reported ABD/GI: reports: no symptoms reported : reports: no symptoms reported Musculoskeletal: reports: no symptoms reported Skin: reports: no symptoms reported <Anita Hurtado - Last Filed: 10/09/18 11:42> Cardiology Progress Note - Objective Vital Signs Temp Pulse Resp BP BP Pulse Ox 10/09/18 09:03 91 10/09/18 07:48 97.7 F 84 18 131/91 H 95 10/09/18 04:59 95 10/09/18 04:11 99 10/09/18 03:57 98.3 F 84 14 123/71 95 Weight 378 lb 8 oz 10/08/18 10/09/18 10/10/18 06:59 06:59 06:59 Intake Total 1905 1110 Output Total 825 2515 Balance 1080 -1405 - Labs Result Diagrams: 10/08/18 05:04 10/08/18 05:04 Troponin/CKMB CK-MB (CK-2) 1.5 ng/mL (0-6.6) 10/05/18 16:35 Troponin I 0.017 ng/mL (< 0.028) 10/05/18 22:38 - Assessment/Plan pt. seen and eval. by me. I agree with the A/P by the [employer]. Chest clear. irreg/ irreg.
[2018-10-08] MEDS ORDERED: Ibuprofen 800 MG TAB PO PRN (21:20)
[2018-10-08] MEDS ORDERED: Digoxin 0.5 MG/2 ML AMP SLOW IVP SCH (22:00)
[2018-10-09] MEDS: Digoxin 0.5 MG/2 ML AMP SLOW IVP SCH ×2 (04:11→09:03)
--- NOTE | 2018-10-09 05:42 | PDOC.FM ---
- Subjective Subjective: Mr. Samuels reports getting really excited last night about the Gayathri came, increasing his heart rate. He has been urinating frequently. Reports SOB with exertion has improved but he does not feel back at baseline physically. Walks across length of his room 8-10 times and will be very out of breath by the end of it. Denies CP, heart palpitations. - Objective MAR Reviewed: Yes Vital Signs & Weight: Vital Signs (12 hours) Temp Pulse Resp BP BP Pulse Ox 10/09/18 04:59 95 10/09/18 04:11 99 10/09/18 03:57 98.3 F 84 14 123/71 95 10/08/18 23:05 100 147/101 H 10/08/18 22:22 124 H 10/08/18 19:30 98.4 F 124 H 18 135/100 H 95 Weight Weight 171.685 kg I&O: 10/07/18 10/08/18 10/09/18 06:59 06:59 06:59 Intake Total 1505 1905 1110 Output Total 874 338 5363 Balance 580 1327 -1407 Result Diagrams: 10/08/18 05:04 10/08/18 05:04 <Vangie Mcclendon - Last Filed: 10/09/18 07:34> - Objective Vital Signs & Weight: Vital Signs (12 hours) Temp Pulse Resp BP BP BP Pulse Ox 10/09/18 09:03 91 10/09/18 07:48 97.7 F 84 18 131/91 H 95 10/09/18 04:59 95 10/09/18 04:11 99 10/09/18 03:57 98.3 F 84 14 123/71 95 10/08/18 23:05 100 147/101 H 10/08/18 22:22 124 H Weight Weight 171.685 kg I&O: 10/08/18 10/09/18 10/10/18 06:59 06:59 06:59 Intake Total 1905 1110 Output Total 825 2515 Balance 5641 -1408 Result Diagrams: 10/08/18 05:04 10/08/18 05:04 <Jose Ramon Talbot - Last Filed: 10/09/18 09:45> Phys Exam - Physical Examination Constitutional: NAD Neck: full ROM Respiratory: clear to auscultation bilateral (auscultation limited by body habitus) Cardiovascular: no significant murmur, irregular (atrial fibrillation) Gastrointestinal: soft, non-tender, no distention, positive bowel sounds 4+ b/l LE edema with chronic venous stasis Neurological: non-focal, moves all 4 limbs Psychiatric: normal affect Skin: normal turgor, cap refill <2 seconds <Vangie Mcclendon - Last Filed: 10/09/18 07:34> Dx/Plan (1) Atrial fibrillation, new onset Code(s): I48.91 - UNSPECIFIED ATRIAL FIBRILLATION Status: Acute (2) New onset of congestive heart failure Code(s): I50.9 - HEART FAILURE, UNSPECIFIED Status: Acute (3) Acute exacerbation of CHF (congestive heart failure) Code(s): I50.9 - HEART FAILURE, UNSPECIFIED Status: Acute Qualifiers: Heart failure type: unspecified Qualified Code(s): I50.9 - Heart failure, unspecified (4) History of DVT of lower extremity Code(s): Z86.718 - PERSONAL HISTORY OF OTHER VENOUS THROMBOSIS AND EMBOLISM Status: Acute (5) Hypertension Code(s): I10 - ESSENTIAL (PRIMARY) HYPERTENSION Status: Acute (6) CHA on CPAP Code(s): G47.33 - OBSTRUCTIVE SLEEP APNEA (ADULT) (PEDIATRIC); Z99.89 - DEPENDENCE ON OTHER ENABLING MACHINES AND DEVICES Status: Acute (7) Diabetes type 2, uncontrolled Code(s): E11.65 - TYPE 2 DIABETES MELLITUS WITH HYPERGLYCEMIA Status: Chronic Qualifiers: Glycemic state: with hyperglycemia Qualified Code(s): E11.65 - Type 2 diabetes mellitus with hyperglycemia (8) Morbid obesity with BMI of 40.0-44.9, adult Code(s): E66.01 - MORBID (SEVERE) OBESITY DUE TO EXCESS CALORIES; Z68.41 - BODY MASS INDEX (BMI) 40.0-44.9, ADULT Status: Acute - Plan Plan: 58 yo M with new onset Afib with RVR and new onset CHF. New onset Afib with RVR -metoprolol was increased 25->50 BID yesterday. Overnight patient was given dig per cardiology - tele overnight, rate mostly 80-90s. Was in 90s-120s for a time when up out of bed. Rate increased during game as well. Given 0.5 dig at 0226. Then 0.25 @ 0400 with another dose scheduled for 1400. -Continue therapeutic lovenox - CTA showed mod b/l pleural effusions, venous congestion, no prox segmental pulmonary artery filling defect -Appreciate recs from cardiology, plan for [facility] Wednesday New onset CHF presenting with acute CHF exacerbation - fluid restriction, RENETTA, BB - echo, EF 30-35% -strict I/O, daily weights - Continue Lasix IVP 40 BID, diuresing well. Output -1400 over past 24hrs. - b/l LE edema improving HTN, improving -BPs improving, now 130s/100s -There could be fluid overload component from acute CHF -Continue increased lisinopril dose of 5mg DM2, uncontrolled - Continue metformin - SSI - A1c 9.5, pt reports not taking metformin for past 3 months. Hx of DVTs -On therapeutic lovenox CHA -Continue CPAP Morbid obesity -counseled on weight loss Dvt ppx: therapeutic lovenox GI ppx: none Dispo: pending cath Wednesday <Vangie Mcclendon - Last Filed: 10/09/18 07:34> (1) Atrial fibrillation, new onset Code(s): I48.91 - UNSPECIFIED ATRIAL FIBRILLATION Status: Acute (2) Acute exacerbation of CHF (congestive heart failure) Code(s): I50.9 - HEART FAILURE, UNSPECIFIED Status: Acute Qualifiers: Heart failure type: unspecified Qualified Code(s): I50.9 - Heart failure, unspecified (3) Diabetes type 2, uncontrolled Code(s): E11.65 - TYPE 2 DIABETES MELLITUS WITH HYPERGLYCEMIA Status: Chronic Qualifiers: Glycemic state: with hyperglycemia Qualified Code(s): E11.65 - Type 2 diabetes mellitus with hyperglycemia (4) History of DVT of lower extremity Code(s): Z86.718 - PERSONAL HISTORY OF OTHER VENOUS THROMBOSIS AND EMBOLISM Status: Acute (5) Morbid obesity with BMI of 40.0-44.9, adult Code(s): E66.01 - MORBID (SEVERE) OBESITY DUE TO EXCESS CALORIES; Z68.41 - BODY MASS INDEX (BMI) 40.0-44.9, ADULT Status: Acute <Jose Ramon Talbot - Last Filed: 10/09/18 09:45> Attending Addendum - Attending Addendum Date/Time: 10/09/1844 I personally evaluated the patient and discussed the management with Dr. Mcclendon. I agree with the History, Examination, Assessment and Plan documented above with any addition or exceptions noted below. Patient feeling well. Was loaded with Digoxin overnight by Cardiology for breakthrough tachycardia but otherwise HR has been well controlled on BB therapy. Will increase Metoprolol this morning. Continue diuresis. Awaiting [facility] tomorrow. <Jose Ramon Talbot R - Last Filed: 10/09/18 09:45>
[2018-10-09] MEDS: Furosemide 40 MG/4 ML VIAL SLOW IVP SCH ×2 (05:51→14:50)
[2018-10-09] MEDS ORDERED: Sodium Chloride 0.9% 100 ML ONE (08:29)
[2018-10-09] MEDS: Enoxaparin Sodium 80 MG/0.8 ML SYRINGE SC SCH ×2 (08:55→20:46)
[2018-10-09] MEDS: Enoxaparin Sodium 100 MG/ML SYRINGE SC SCH ×2 (08:55→20:45)
[2018-10-09] MEDS: metFORMIN 500 MG TAB PO SCH ×2 (08:56→17:21)
[2018-10-09] MEDS: Metoprolol Tartrate 50 MG TAB PO SCH ×2 (08:56→20:44)
[2018-10-09] MEDS: Lisinopril 5 MG TAB PO SCH (08:57)
[2018-10-09] MEDS ORDERED: Metoprolol Tartrate 50 MG TAB PO SCH (10:30)
[2018-10-09] MEDS ORDERED: Metoprolol Tartrate 25 MG TAB PO SCH (11:00)
[2018-10-09] MEDS: HumaLOG 300 UNITS/3 ML VIAL SC PRN (11:35)
--- NOTE | 2018-10-09 11:44 | PDOC.CTH ---
Cardiology Progress Note - Subjective No new overnight events. No c/o this AM. - Objective Vital Signs Temp Pulse Resp BP BP Pulse Ox 10/09/18 09:03 91 10/09/18 07:48 97.7 F 84 18 131/91 H 95 10/09/18 04:59 95 10/09/18 04:11 99 10/09/18 03:57 98.3 F 84 14 123/71 95 Weight 378 lb 8 oz 10/08/18 10/09/18 10/10/18 06:59 06:59 06:59 Intake Total 1905 1110 Output Total 825 2515 Balance 1080 -1405 - Physical Examination General/Neuro: alert & oriented x3 Neck: no JVD present Lungs: CTA Heart: other: (irreg/irreg.) Abdomen: soft Extremities: + edema B - Telemetry Telemetry Rhythm: Afib. - Labs Result Diagrams: 10/08/18 05:04 10/08/18 05:04 Troponin/CKMB CK-MB (CK-2) 1.5 ng/mL (0-6.6) 10/05/18 16:35 Troponin I 0.017 ng/mL (< 0.028) 10/05/18 22:38 - Assessment/Plan 1. New onset Afib with RVR - Well controlled HR with BBlocker. On Lovenox BID; cont. to monitor on tele 2. New onset dilated CM EF at 30-35% - stable with Lasix IV 40mg BID, BBlocker, and Lisinopril; plan on [facility] Wednesday. 3. HTN - stable 4. Sleep apnea with Cpap - 5. DM type 2 - managed by PCP 6. Hx of DVT - 7. Morbid obesity - 8. Hyperlipidemia - on Statin MAR reviewed * RENETTA wrap for BLE edema. Instructed to elevate his BLE.
[2018-10-09] MEDS: Atorvastatin Calcium 40 MG TAB PO SCH (20:43)
[2018-10-09] MEDS ORDERED: Communication Order-Pharmacy FS SCH (23:45)
--- NOTE | 2018-10-10 05:15 | PDOC.FM ---
- Subjective Subjective: Mr. Samuels has no new complaints this morning. He had just taken a shower which got him out of breath. Otherwise he reports his SOB is overall improving as well as his LE edema. Awaiting cath today. Denies CP, heart palpitations. - Objective MAR Reviewed: Yes Vital Signs & Weight: Vital Signs (12 hours) Temp Pulse Resp BP BP Pulse Ox 10/10/18 04:38 93 L 10/10/18 04:10 97.6 F 85 15 166/98 H 93 L 10/09/18 20:05 96 10/09/18 20:00 98.2 F 100 16 144/92 H 96 Weight Weight 171.685 kg I&O: 10/08/18 10/09/18 10/10/18 06:59 06:59 06:59 Intake Total 1905 1110 Output Total 825 2515 Balance 1080 -1405 Result Diagrams: 10/10/18 05:12 10/10/18 05:12 Phys Exam - Physical Examination Constitutional: NAD Respiratory: clear to auscultation bilateral (auscultation limited d/t body habitus) Cardiovascular: RRR, no significant murmur Gastrointestinal: soft, non-tender, no distention, positive bowel sounds Musculoskeletal: edema present (4+ pitting edema b/l LE, improving. Chronic venous stasis.) Neurological: moves all 4 limbs Psychiatric: normal affect Skin: normal turgor, cap refill <2 seconds Dx/Plan (1) Atrial fibrillation, new onset Code(s): I48.91 - UNSPECIFIED ATRIAL FIBRILLATION Status: Acute (2) New onset of congestive heart failure Code(s): I50.9 - HEART FAILURE, UNSPECIFIED Status: Acute (3) Acute exacerbation of CHF (congestive heart failure) Code(s): I50.9 - HEART FAILURE, UNSPECIFIED Status: Acute Qualifiers: Heart failure type: unspecified Qualified Code(s): I50.9 - Heart failure, unspecified (4) History of DVT of lower extremity Code(s): Z86.718 - PERSONAL HISTORY OF OTHER VENOUS THROMBOSIS AND EMBOLISM Status: Acute (5) Hypertension Code(s): I10 - ESSENTIAL (PRIMARY) HYPERTENSION Status: Acute (6) CHA on CPAP Code(s): G47.33 - OBSTRUCTIVE SLEEP APNEA (ADULT) (PEDIATRIC); Z99.89 - DEPENDENCE ON OTHER ENABLING MACHINES AND DEVICES Status: Acute (7) Diabetes type 2, uncontrolled Code(s): E11.65 - TYPE 2 DIABETES MELLITUS WITH HYPERGLYCEMIA Status: Chronic Qualifiers: Glycemic state: with hyperglycemia Qualified Code(s): E11.65 - Type 2 diabetes mellitus with hyperglycemia (8) Morbid obesity with BMI of 40.0-44.9, adult Code(s): E66.01 - MORBID (SEVERE) OBESITY DUE TO EXCESS CALORIES; Z68.41 - BODY MASS INDEX (BMI) 40.0-44.9, ADULT Status: Acute - Plan Plan: 58 yo M with new onset Afib with RVR and new onset CHF. New onset Afib with RVR -metoprolol was increased 25->50->75 BID yesterday - tele overnight,rate controlled a fib in 90s overnight -Continue therapeutic lovenox - CTA showed mod b/l pleural effusions, venous congestion, no prox segmental pulmonary artery filling defect -Appreciate recs from cardiology, plan for [facility] today New onset CHF presenting with acute CHF exacerbation - fluid restriction, RENETTA, BB, lasix - echo, EF 30-35% -strict I/O, daily weights - Continue Lasix IVP 40 BID, diuresing well. Cr stable. I/O balance recording as 0 over past 24hrs. However, pt is 15kg down since admission, clinically improving. - b/l LE edema improving HTN, improving -BPs improving, now 130s/100s -There could be fluid overload component from acute CHF -Continue increased lisinopril dose of 5mg DM2, uncontrolled - Continue metformin - SSI - A1c 9.5, pt reports not taking metformin for past 3 months. Hx of DVTs -On therapeutic lovenox CHA -Continue CPAP Morbid obesity -counseled on weight loss Dvt ppx: therapeutic lovenox GI ppx: none Dispo: pending cath today
[2018-10-10 05:33] LABS: Hemoglobin 14.1 g/dL (14.0-18.0); Platelet Count 199 thou/uL (130-400)
[2018-10-10] MEDS: Metoprolol Tartrate 50 MG TAB PO SCH ×2 (05:51→20:10)
[2018-10-10] MEDS: Lisinopril 5 MG TAB PO SCH (05:52)
[2018-10-10 05:53] LABS: Calc. Creatinine Clearance 264 mL/min (70-130); Estimated GFR-MDRD Greater than 90
[2018-10-10] MEDS: Furosemide 40 MG/4 ML VIAL SLOW IVP SCH ×2 (08:15→14:20)
[2018-10-10] MEDS ORDERED: Lidocaine 1% (PF) 30 ML VIAL ONE (10:16)
[2018-10-10] MEDS ORDERED: Heparin 10,000 UNITS/1 ML VIAL ONE (10:40)
[2018-10-10] MEDS ORDERED: Nitroglycerin 100MG/250ML BOT 250 ML ONE (10:40)
[2018-10-10] MEDS ORDERED: Verapamil 5 MG/2 ML VIAL ONE (10:40)
[2018-10-10] MEDS ORDERED: Fentanyl 100 MCG/2 ML VIAL ONE (10:57)
[2018-10-10] MEDS ORDERED: Midazolam HCl 2 mg/2 ml Vial ONE (10:57)
[2018-10-10] MEDS ORDERED: traMADol HCl 50 MG TAB PO PRN (11:27)
[2018-10-10] MEDS ORDERED: Acetaminophen/Codeine 30-300mg Tablet PO PRN ×2 (11:27)
[2018-10-10] MEDS ORDERED: Nitroglycerin 0.4 MG TAB (25 Tab Bottle) SL PRN (11:27)
[2018-10-10] MEDS ORDERED: Sodium Chloride 0.9% 200 ML IV SCH (11:30)
[2018-10-10] MEDS ORDERED: HumaLOG 300 UNITS/3 ML VIAL SC PRN (12:00)
--- NOTE | 2018-10-10 12:21 | PRG ---
DATE OF SERVICE: 10/10/2018 Mr. Samuels is a 58-year-old man who was admitted with new onset heart failure and new onset atrial fibrillation. He was successfully treated initially with intravenous diltiazem followed by p.o. met oprolol. He is currently down getting his heart catheterization. LABORATORY DATA: This morning, hemoglobin is 14.1, hematocrit was 42.1. His BMP was normal. Glucos e 208. Triglycerides 86, cholesterol 128, LDL 73, HDL 38. TSH is 0.98. We will await recommendations of Cardiology after cardiac catheterization.
[2018-10-10] MEDS ORDERED: Iopamidol 370 76% 100 ML VIAL ONE (16:42)
[2018-10-10] MEDS ORDERED: metFORMIN 500 MG TAB PO SCH (17:00)
[2018-10-10] MEDS: Atorvastatin Calcium 40 MG TAB PO SCH (20:09)
[2018-10-10] MEDS: Apixaban 5 MG TAB PO SCH (20:09)
[2018-10-11] MEDS: Furosemide 40 MG/4 ML VIAL SLOW IVP SCH (06:06)
--- NOTE | 2018-10-11 06:53 | PDOC.FM ---
- Subjective Subjective: Mr. Samuels is feeling well this morning. Tolerating PO intake. Reports his LE edema has greatly improved especially with renetta wraps. Has no new complaints. Denies CP, heart palpitations, SOB. - Objective MAR Reviewed: Yes Vital Signs & Weight: Vital Signs (12 hours) Temp Pulse Resp BP Pulse Ox 10/11/18 03:30 98.1 F 84 23 H 110/66 91 L 10/10/18 19:25 97.7 F 95 16 122/75 95 Weight Weight 164.654 kg I&O: 10/09/18 10/10/18 10/11/18 06:59 06:59 06:59 Intake Total 1110 550 480 Output Total 2515 550 1100 Balance -1405 0 -620 Result Diagrams: 10/10/18 05:12 10/10/18 05:12 Phys Exam - Physical Examination Constitutional: NAD HEENT: moist MMs Respiratory: clear to auscultation bilateral (limited d/t body habitus) Cardiovascular: RRR, no significant murmur Gastrointestinal: soft (obese), non-tender, no distention, positive bowel sounds Musculoskeletal: edema present (1+ pitting edema b/l LE, venous stasis changes) Neurological: non-focal Lymphatic: no nodes Psychiatric: normal affect Skin: normal turgor, cap refill <2 seconds Dx/Plan (1) Atrial fibrillation, new onset Code(s): I48.91 - UNSPECIFIED ATRIAL FIBRILLATION Status: Acute (2) New onset of congestive heart failure Code(s): I50.9 - HEART FAILURE, UNSPECIFIED Status: Acute (3) Acute exacerbation of CHF (congestive heart failure) Code(s): I50.9 - HEART FAILURE, UNSPECIFIED Status: Acute Qualifiers: Heart failure type: unspecified Qualified Code(s): I50.9 - Heart failure, unspecified (4) History of DVT of lower extremity Code(s): Z86.718 - PERSONAL HISTORY OF OTHER VENOUS THROMBOSIS AND EMBOLISM Status: Acute (5) Hypertension Code(s): I10 - ESSENTIAL (PRIMARY) HYPERTENSION Status: Acute (6) CHA on CPAP Code(s): G47.33 - OBSTRUCTIVE SLEEP APNEA (ADULT) (PEDIATRIC); Z99.89 - DEPENDENCE ON OTHER ENABLING MACHINES AND DEVICES Status: Acute (7) Diabetes type 2, uncontrolled Code(s): E11.65 - TYPE 2 DIABETES MELLITUS WITH HYPERGLYCEMIA Status: Chronic Qualifiers: Glycemic state: with hyperglycemia Qualified Code(s): E11.65 - Type 2 diabetes mellitus with hyperglycemia (8) Morbid obesity with BMI of 40.0-44.9, adult Code(s): E66.01 - MORBID (SEVERE) OBESITY DUE TO EXCESS CALORIES; Z68.41 - BODY MASS INDEX (BMI) 40.0-44.9, ADULT Status: Acute - Plan Plan: 58 yo M with new onset Afib with RVR and new onset CHF. New onset Afib with RVR - continue metoprolol 75 BID - tele overnight: atrial fib, rate controlled - Started on eliquis yesterday - CTA showed mod b/l pleural effusions, venous congestion, no prox segmental pulmonary artery filling defect - Cath 12/11 showed no CAD - Appreciate recs from cardiology New onset CHF presenting with acute CHF exacerbation - fluid restriction, RENETTA, BB, lasix - echo, EF 30-35% - strict I/O, daily weights - Lasix IVP 40 BID, diuresing well with clinical improvement. Cr stable. I/O balance -620 mL past 24 hours. Will transition to PO today - b/l LE edema greatly improved HTN, improving -BPs WNL -Continue increased lisinopril dose of 5mg DM2, uncontrolled - Continue metformin - SSI - A1c 9.5, pt reports not taking metformin for past 3 months. Hx of DVTs -On elequis CHA -Continue CPAP Morbid obesity -counseled on weight loss Dvt ppx: elequis GI ppx: none Dispo: pending cardiology recs, plan for d/c today
[2018-10-11] MEDS: Lisinopril 5 MG TAB PO SCH (08:23)
[2018-10-11] MEDS: Apixaban 5 MG TAB PO SCH ×2 (08:23→19:46)
[2018-10-11] MEDS: Metoprolol Tartrate 50 MG TAB PO SCH ×2 (08:23→19:46)
--- NOTE | 2018-10-11 11:58 | PRG ---
DATE OF SERVICE: 10/11/2018 This is an addendum to the note of Dr. Vangie Mcclendon. Mr. Samuels had a normal heart cath. He is currently being treated for cardiomyopathy and heart fa ilure. He is looking and feeling much better. He now states that he may have sleep apnea, but has n ever had a sleep study. He was attempting to use his brother's CPAP machine, but we have no settings . We have urged him to get followup and workup for possible sleep apnea. Otherwise, he is ready for discharge today on his heart failure medications.
[2018-10-11 16:22] VITALS: BP 104/75; TEMP 97.5
[2018-10-11] MEDS: Atorvastatin Calcium 40 MG TAB PO SCH (19:46)
[2018-10-12] MEDS ORDERED: Furosemide 40 MG TAB PO SCH (07:30)
[2018-10-12] MEDS ORDERED: metFORMIN XR 500 MG TAB PO SCH (08:00)
--- NOTE | 2018-10-13 10:08 | DIS ---
DATE OF ADMISSION: 10/05/2018 DATE OF DISCHARGE: 10/11/2018 RESIDENT: Vangie Mcclendon DO ADMITTING ATTENDING: Jose Ramon Talbot MD DISCHARGE ATTENDING: Maciej Salazar MD. CONSULTS: Cardiology. PROCEDURES: On 10/05/2018, chest x-ray showed mildly prominent heart. Lungs appear clear with no infiltrate or significant effusion. No evidence of interval change. On 10/05/2018, left heart cath showed normal LVEDP, left ventricular ejection fraction of 40%, no [id number] gradient, normal coronaries with recommendation of medical therapy and continued rate control. Echo on 10/07/2018 showed technically limited study, ejection fraction estimated at 30% to 35%, atrial fibrillation during test, mildly dilated left atrium, mild mitral regurgitation, and mild tricuspid regurgitation. PRIMARY DIAGNOSES: 1. New-onset atrial fibrillation with rapid ventricular response. 2. New-onset congestive heart failure, presenting in acute congestive heart failure exacerbation. SECONDARY DIAGNOSES: 1. Hypertension. 2. Diabetes, type 2. 3. History of deep venous thrombosis. 4. Obstructive sleep apnea. 5. Morbid obesity. DISCHARGE MEDICATIONS: 1. Apixaban 5 mg p.o. b.i.d., #60. 2. Lipitor 80 mg p.o. at bedtime. 3. Lasix 40 mg p.o. daily a.c. 4. Lisinopril 5 mg p.o. daily. 5. Metformin XR 500 mg p.o. q.a.m. with meals. 6. Carvedilol 12.5 mg p.o. b.i.d. HISTORY OF PRESENT ILLNESS: A 58-year-old with past medical history of morbid obesity, diabetes, and history of multiple DVTs, presents to the ED with a chief complaint of progressing and worsening shortness of breath with exertion while lying down for the past 2 to 3 weeks. He noted using 2 to 3 pillows to prop himself up in bed. His shortness of breath continued to worsen, so that he presented to the ED for further evaluation. He also endorsed increased bilateral lower extremity edema, unintentional weight gain, and abdominal tightness. In the ED, the patient was found to be in atrial fibrillation and was given boluses of diltiazem and then subsequently started on a diltiazem drip. He was started on therapeutic Lovenox. Cardiology was consulted and an echo was ordered. The patient presented with classic symptoms of CHF exacerbation and appeared mildly volume overloaded. He did not require any supplemental O2. He was started on IV Lasix 40 b.i.d. during his hospitalization. LABORATORY DATA: Labs revealed hemoglobin 14.1 and hematocrit 42.1. Hemoglobin A1c 9.5. BNP of 349. Triglycerides 86, cholesterol 128, LDL 73, HDL 38, TSH 0.9. Other labs were essentially unremarkable. HOSPITAL COURSE: The patient was initially weighed on 10/05/2018 as 179 kg. Discharge weight on 10/11/2018 was 162 kg. He diuresed well with improvement in shortness of breath symptoms as well as lower extremity edema in conjunction with Riley wrapping. The patient remains in atrial fibrillation throughout his hospitalization and was rate controlled with rate in the 80s to 90s on metoprolol, which was started after transitioning off his diltiazem drip. The patient did this without any complications. He was seen by Cardiology throughout his hospitalization and recommendations were appreciated. He underwent a heart cath, which showed no coronary artery disease. The patient was started on metformin. His elevated A1c was discussed with the patient, and his medications will likely need to be increased in the outpatient setting to maintain or to acquire adequate diabetic control. Additionally, a sleep study is suggested as the patient would likely benefit from a CPAP machine. He used a CPAP machine throughout the hospitalization. The patient will need to follow up with Cardiology to discuss long-term anticoagulation plan considering his current atrial fibrillation. The patient's symptoms improved and he was stable at the time of discharge. DISPOSITION: Stable. DISCHARGE INSTRUCTIONS: Location: Home. Diet: Diabetic and heart healthy. Activity: As tolerated. Followup: Follow up at the [facility]. Follow up with cardiac rehab in [place]. Follow up with Dr. Read in 3 to 4 weeks. Follow up with [facility] Cartwright on 10/17/2018 at 9:45 a.m. Follow up with Dr. Beckford. Job ID: [id number] [facility]
--- NOTE | 2018-10-13 15:59 | PQF ---
OMAYRA BEGUM ADEL MD [id number] CLINICAL DOCUMENTATION CLARIFICATION FORM: POST DISCHARGE Addendum to original discharge summary date: ____ Late entry note date: __ DATE: 10/13/18 ATTN: Please exercise your independent, professional judgment in responding to the clarification form. Clinical indicators are provided on the bottom of this form for your review Please check appropriate box(s): HEART FAILURE: A. TYPE: [ ] Systolic / HFrEF [ ] Diastolic / HFpEF [ ] Combined Systolic / Diastolic B. ACUITY [ ] Acute [ ] Acute on Chronic [ ] Chronic [ ] Other diagnosis [ ] Unable to determine In addition, please specify: Present on Admission (POA): [ ] Yes [ ] No [ ] Unable to determine For continuity of documentation, please document condition throughout progress notes and discharge summary. Thank You. CLINICAL INDICATORS - SIGNS / SYMPTOMS / LABS Elevated BNP SOB Arrhythmia--tachycardia RISKS: Atrial Fibrillation Hypertension TREATMENTS: Cardiac monitoring / telemetry IV diuretics Heart Cath (This form is maintained as a part of the permanent medical record) 2014 [employer]. All Rights Reserved Michael [email or web address] [phone] [email or web address]
--- NOTE | 2018-10-15 14:49 | EKG ---
Test Reason : SOB Blood Pressure : / mmHG Vent. Rate : 147 BPM Atrial Rate : 138 BPM P-R Int : 000 ms QRS Dur : 094 ms QT Int : 318 ms P-R-T Axes : 000 -14 047 degrees QTc Int : 497 ms Atrial fibrillation with rapid ventricular response Low voltage QRS Abnormal ECG Confirmed by EVIE WHITAKER, MICHAEL Barber ([id number]), school photograph editor JM VENCES ([id number]) on 10/15/2018 2:48:44 PM Referred By: Confirmed By:MICHAEL CASE MD
== END 2018-10-11 20:05 | disposition home or self-care (01) | DRG 287 ==
LOC: ERS 16:27 → 2NO 19:06 → EDSEX 19:06
PROVIDERS: ADMIT Family Medicine; ATTEND Family Medicine
PROC: 4A023N7 Measurement of Cardiac Sampling and Pressure, Left Heart, Percutaneous Approach (ICD-10-PCS; principal; 2018-10-10)
PROC: B2111ZZ Fluoroscopy of Multiple Coronary Arteries using Low Osmolar Contrast (ICD-10-PCS; 2018-10-10)
PROC: B2151ZZ Fluoroscopy of Left Heart using Low Osmolar Contrast (ICD-10-PCS; 2018-10-10)
DX: I48.91 Unspecified atrial fibrillation (principal); Z68.41 Body mass index [BMI] 40.0-44.9, adult; I50.9 Heart failure, unspecified; Z86.718 Personal history of other venous thrombosis and embolism; E66.01 Morbid (severe) obesity due to excess calories; I42.0 Dilated cardiomyopathy; G47.33 Obstructive sleep apnea (adult) (pediatric); E78.5 Hyperlipidemia, unspecified; I11.0 Hypertensive heart disease with heart failure; E11.65 Type 2 diabetes mellitus with hyperglycemia
CPT/HCPCS: 36415; 36416; 71045; 71275; 80048; 80053; 80061; 82553; 82565; 83036; 83735; 83880; 84100; 84443; 84484; 85014; 85018; 85025; 85049; 87324; 87449; 93005; 93306; 93458; 93798; 94660; 96372; 96374; 96376; 99152; C1769; J1160; J1644; J1650; J1940; J2001; J2250; J3010; J7050

== ENCOUNTER 2019-01-12 22:11 | Emergency (ER) | payer SELFPAY ==
--- NOTE | 2019-01-12 22:34 | RAD ---
PORTABLE CHEST: 01/12/19 HISTORY: Dyspnea. COMPARISON: 10/05/18. FINDINGS/IMPRESSION: Cardiomegaly. Mild vascular congestion. No focal infiltrate and no significant effusion. POS: [facility]
[2019-01-12] MEDS ORDERED: Furosemide 40 MG/4 ML VIAL ONE (22:45)
[2019-01-12] MEDS ORDERED: Nitroglycerin 2% Ointment 1 INCH/1 GM Packet ONE (22:45)
[2019-01-12 22:51] LABS: #Basophils 0.1 thou/uL (0.0-0.2); #Eosinphils 0.1 thou/uL (0.0-0.7); #Lymphocytes 2.2 thou/uL (1.20-3.40); #Monocytes 0.7 thou/uL (0.11-0.59); #Neutrophils 5.7 thou/uL (1.40-6.50); %Basophils 0.6 % (0.0-1.0); %Eosinophils 1.6 % (0.0-10.0); %Lymphocytes 25.5 % (21.0-51.0); %Monocytes 7.8 % (0.0-10.0); %Neutrophils 64.6 % (42.0-75.0); Hemoglobin 12.2 g/dL (14.0-18.0); Mean Corpuscular HGB CONC 32.4 g/dL (32.0-36.0); Mean Corpuscular Hemoglobin 31.1 pg (27.0-31.0); Mean Corpuscular Volume 96.1 fL (78.0-98.0); Mean Platelet Volume 9.3 fL (7.4-10.4); Platelet Count 168 thou/uL (130-400); RBC Distribution Width 12.4 % (11.5-14.5); Red Blood Cell (RBC) Count 3.94 mill/uL (4.70-6.10); White Blood Cell (WBC) Count 8.7 thou/uL (4.8-10.8)
[2019-01-12 23:19] LABS: ALT (SGPT) 15 U/L (8-55); AST (SGOT) 15 U/L (5-34); Albumin 3.6 g/dL (3.5-5.0); Alkaline Phosphatase 55 U/L (40-150); Anion Gap 14 mmol/L (10-20); BUN (Urea Nitrogen) 15 mg/dL (8.4-25.7); Bilirubin, Total 0.8 mg/dL (0.2-1.2); Calc. Creatinine Clearance 0 mL/min (70-130); Calcium 9.4 mg/dL (7.8-10.44); Carbon Dioxide 26 mmol/L (22-29); Chloride 103 mmol/L (98-107); Estimated GFR-MDRD Greater than 90; Globulin 3.8 g/dL (2.4-3.5); Glucose 117 mg/dL (70-105); Potassium 4.4 mmol/L (3.5-5.1); Protein, Total 7.4 g/dL (6.0-8.3); Sodium 139 mmol/L (136-145)
== END 2019-01-12 23:43 | disposition home or self-care (01) ==
LOC: ERS 22:11
DX: I50.9 Heart failure, unspecified (principal); E11.9 Type 2 diabetes mellitus without complications; F32.9 Major depressive disorder, single episode, unspecified
CPT/HCPCS: 71045; 80053; 83880; 84484; 85025; 93005; 96374; J1940

== ENCOUNTER 2019-04-12 19:18 | Observation (INO) | payer SELFPAY ==
[2019-04-12 20:19] LABS: #Eosinphils 0.1 thou/uL (0.0-0.7); #Monocytes 0.7 thou/uL (0.11-0.59); #Neutrophils 6.2 thou/uL (1.40-6.50); %Basophils 0.3 % (0.0-1.0); %Eosinophils 0.6 % (0.0-10.0); %Lymphocytes 22.3 % (21.0-51.0); %Monocytes 7.9 % (0.0-10.0); %Neutrophils 68.9 % (42.0-75.0); Hemoglobin 12.6 g/dL (14.0-18.0); Mean Corpuscular HGB CONC 32.1 g/dL (32.0-36.0); Mean Corpuscular Hemoglobin 29.6 pg (27.0-31.0); Mean Corpuscular Volume 92.1 fL (78.0-98.0); Mean Platelet Volume 7.9 fL (7.4-10.4); Platelet Count 205 thou/uL (130-400); RBC Distribution Width 11.8 % (11.5-14.5); Red Blood Cell (RBC) Count 4.26 mill/uL (4.70-6.10)
[2019-04-12 20:22] LABS: ALT (SGPT) 35 U/L (8-55); AST (SGOT) 29 U/L (5-34); Albumin 3.6 g/dL (3.5-5.0); Alkaline Phosphatase 46 U/L (40-150); Anion Gap 13 mmol/L (10-20); BUN (Urea Nitrogen) 16 mg/dL (8.4-25.7); Bilirubin, Total 0.4 mg/dL (0.2-1.2); Calc. Creatinine Clearance 0 mL/min (70-130); Calcium 9.4 mg/dL (7.8-10.44); Carbon Dioxide 22 mmol/L (22-29); Chloride 101 mmol/L (98-107); Estimated GFR-MDRD Greater than 90; Globulin 3.8 g/dL (2.4-3.5); Glucose 226 mg/dL (70-105); Lipase 10 U/L (8-78); Magnesium 2.4 mg/dL (1.6-2.6); Potassium 5.1 mmol/L (3.5-5.1); Protein, Total 7.4 g/dL (6.0-8.3); Sodium 131 mmol/L (136-145)
--- NOTE | 2019-04-12 20:58 | RAD ---
PORTABLE CHEST: 04/12/19 HISTORY: Chest pain. Lungs are clear. Heart is mildly prominent in size. Vasculature normal. IMPRESSION: No acute process. POS: [facility]
[2019-04-12] MEDS ORDERED: Nitroglycerin 2% Ointment 1 INCH/1 GM Packet ONE (21:05)
[2019-04-12] MEDS ORDERED: Aspirin Chewable 81 MG TAB ONE (21:05)
[2019-04-12] MEDS ORDERED: Senokot S 8.6-50 MG TAB PO PRN (21:42)
[2019-04-12] MEDS ORDERED: Acetaminophen 325 MG TAB PO PRN (21:42)
[2019-04-12] MEDS ORDERED: Apixaban 5 MG TAB PO SCH (22:15)
[2019-04-12 23:24] VITALS: BMI 56.7
[2019-04-13] MEDS ORDERED: Dextrose 50% Abboject 50 ML SYRINGE SLOW IVP PRN (03:05)
[2019-04-13] MEDS ORDERED: HumaLOG 300 UNITS/3 ML VIAL SC PRN (03:05)
[2019-04-13] MEDS ORDERED: Dextrose 5% in Water 1,000 ML IV PRN (03:05)
--- NOTE | 2019-04-13 05:03 | HP ---
CHIEF COMPLAINT: Syncope and palpitations. HISTORY OF PRESENT ILLNESS: The patient is a 59-year-old male with a history of systolic heart failure and paroxysmal atrial fibrillation, hypertension, obesity, and diabetes, who presents to the hospital with syncope and palpitations. The patient states that last week while he was taking a shower, he did have a syncopal episode in the shower. Prior to that, he felt very lightheaded and dizzy and also felt some tachycardia. The patient stated that when he woke up, he was on the floor. He stated that he did not hit his head. The patient does not recall how long he was down for. The patient states that he ran out of all of his medications for about a couple of months and has not been taking any of his blood pressure medications nor has he been taking his anticoagulation. The patient during his last visit in September of last year had a cardiac cath, which indicated normal coronaries. However, his EF was about 35-40 percent. The patient states that for the past 3 weeks, he has been having intermittent palpitations and gets very lightheaded; however, never passed out until last week. The patient stated that today he had multiple episodes of palpitations while he was at home and resting and also had some chest tightness, which concerned him so he came into the ER for further evaluation. The patient denies any fevers or chills, any nausea, vomiting, or diarrhea. The patient states that he normally used to get his Eliquis from the central supply clerk's office, however, has not gone back to receive any additional samples. The patient also states that he was supposed to refill his medication; however he did not. The patient just felt that he did have rides and just did not feel like going and felt better being off the medications. He also had a sleep study and he is supposed to be on a CPAP; however, patient states that he does not wear the CPAP at night. The patient also states that there has been times when he has monitored his heart rate and his heart rate has been in the 140s at times when he has these episodes of lightheadedness. PAST MEDICAL HISTORY: 1. He has a history of hypertension. 2. Obesity. 3. History of multiple DVTs. 4. History of systolic heart failure. 5. He is on CPAP. PAST SURGICAL HISTORY: He has had a left knee arthroscopy and right knee surgery. Lap band surgery in 2004. The patient also has had a cardiac cath. FAMILY HISTORY: Grandmother had diabetes. ALLERGIES: HE HAS NO KNOWN DRUG ALLERGIES. MEDICATIONS: 1. The patient is supposed to be on Eliquis 5 mg b.i.d. 2. Atorvastatin 80 mg daily. 3. Carvedilol 12.5 b.i.d. 4. Lisinopril 5 mg daily. 5. Metformin 500 mg daily. 6. Lasix 40 mg daily. REVIEW OF SYSTEMS: All negative except for the ones mentioned above in the HPI. PHYSICAL EXAMINATION: VITAL SIGNS: Are as of the following, the patient's temperature is 97.8, 83, 14, 98% on room air, 172/116. GENERAL: He is awake, alert, and oriented x3. Does not appear in any distress. HEENT: Normocephalic, atraumatic. No lymphadenopathy noted. Pupils are equal reactive to light. CV: S1 and S2 present. No murmurs, rubs, or gallops. LUNGS: Clear to auscultation. No rhonchi or wheezes noted. ABDOMEN: Soft and nontender. Bowel sounds are present x2. Obese. EXTREMITIES: Significant pitting lower extremity edema. The patient also has chronic venous changes to his lower extremity. NEUROVASCULAR: There were no focal deficits noted. SKIN: He does have chronic venous stasis, otherwise no acute abnormalities. LABORATORY RESULTS: As of the following; WBCs of 9.0, hemoglobin 12.6, hematocrit of 39.2, platelets of 205. Chemistry; sodium of 131, potassium of 5.1, BUN of 16, creatinine 0.84. BNP of 339.7. His troponin was within the normal range. TSH was 1.079. He did have a chest x-ray, which indicated no acute processes. ASSESSMENT AND PLAN: The patient is a 59-year-old male who presents to the hospital with syncope, palpitations. 1. Syncopal episodes. The patient could be most likely having paroxysmal atrial fibrillation since he has been out of his medications for the past 2 months. The patient stated that when he was taking his medications, he never had any of these episodes. I will continue his home medications. I will repeat his echocardiogram. I have educated the patient in detail that he cannot run out of his medications since this could be very dangerous and can cause strokes and other problems in the future. The patient states that he understands and he will try and be more compliant. I have also mentioned to him that there is a program with [facility] that he can get the medications for free; however this requires some paperwork to be filled out. 2. Hypertension, uncontrolled. We will continue his home medications. 3. Diabetes. We will continue his metformin. We will also check his Accu-Cheks and at bedtime. 4. Systolic heart failure, currently I believe it is compensated. The patient came in with syncopal episode and some chest tightness, which I believe is most likely due to paroxysmal atrial fibrillation. 5. Atrial fibrillation, paroxysmal. We will continue patient back on his Eliquis and I will also continue his other home medications. 6. Deep venous thrombosis prophylaxis. The patient is already on Eliquis. Job ID: [id number]
[2019-04-13] MEDS: Furosemide 40 MG/4 ML VIAL SLOW IVP SCH ×2 (06:01→13:47)
[2019-04-13] MEDS ORDERED: Furosemide 40 MG TAB PO SCH (07:30)
--- NOTE | 2019-04-13 07:46 | ULT ---
CAROTID DUPLEX ULTRASOUND: INDICATION: Syncopal episode. COMPARISON: None. FINDINGS: There is mild atherosclerotic plaque involving the proximal internal carotid arteries bilaterally. L eft common carotid artery is mildly tortuous. The peak systolic velocity within the right ICA was 64.7 cm/s whereas the peak systolic velocity in t he right CCA was 134.5 cm/s. The right IC:CC ratio was 0.48. Peak systolic velocity in the left ICA was 55.8 cm/s whereas the peak systolic velocity in the left C CA was 98.4 cm/s. The left IC:CC ratio is 0.57. Antegrade flow is seen in both vertebral arteries. IMPRESSION: No hemodynamically significant stenosis. POS: [facility]
[2019-04-13] MEDS ORDERED: metFORMIN XR 500 MG TAB PO SCH (08:00)
[2019-04-13] MEDS ORDERED: Lisinopril 5 MG TAB PO SCH (09:00)
[2019-04-13] MEDS ORDERED: Apixaban 5 MG TAB PO SCH (09:00)
[2019-04-13] MEDS ORDERED: Carvedilol 6.25 MG TAB PO SCH (09:00)
[2019-04-13] MEDS: Carvedilol 25 MG TAB PO SCH ×2 (09:56→18:57)
[2019-04-13 11:59] VITALS: BP 122/70; TEMP 97.6
[2019-04-13] MEDS ORDERED: Atorvastatin Calcium 40 MG TAB PO SCH (21:00)
== END 2019-04-13 17:20 | disposition home or self-care (01) ==
LOC: ERS 19:18 → 2SW 23:14
PROVIDERS: ADMIT Internal Medicine; ATTEND Internal Medicine
DX: R55 Syncope and collapse (principal); I48.0 Paroxysmal atrial fibrillation; I11.0 Hypertensive heart disease with heart failure; I50.20 Unspecified systolic (congestive) heart failure; E11.9 Type 2 diabetes mellitus without complications; M16.12 Unilateral primary osteoarthritis, left hip; F32.9 Major depressive disorder, single episode, unspecified; E66.9 Obesity, unspecified; Z68.43 Body mass index [BMI] 50.0-59.9, adult; Z99.89 Dependence on other enabling machines and devices; Z79.84 Long term (current) use of oral hypoglycemic drugs; Z79.01 Long term (current) use of anticoagulants; Z79.899 Other long term (current) drug therapy
CPT/HCPCS: 36415; 36416; 71045; 80053; 83690; 83735; 83880; 84443; 84484; 85025; 93005; 93306; 93880; 96374; 96376; G0378; J1940

== ENCOUNTER 2020-04-19 03:40 | Inpatient (IN) | payer OTHER, SELFPAY ==
[2020-04-19] MEDS ORDERED: Magnesium 2 GM/50 ML BAG (IN WATER) ONE (04:14)
[2020-04-19 04:19] LABS: #Lymphocytes 1.1 thou/uL (1.20-3.40); #Monocytes 0.6 thou/uL (0.11-0.59); #Neutrophils 3.4 thou/uL (1.40-6.50); %Basophils 0.2 % (0.0-1.0); %Eosinophils 0.2 % (0.0-10.0); %Lymphocytes 20.5 % (21.0-51.0); %Monocytes 12.3 % (0.0-10.0); %Neutrophils 66.7 % (42.0-75.0); Hemoglobin 15.7 g/dL (14.0-18.0); Mean Corpuscular HGB CONC 32.6 g/dL (32.0-36.0); Mean Corpuscular Hemoglobin 30.5 pg (27.0-31.0); Mean Corpuscular Volume 93.5 fL (78.0-98.0); Mean Platelet Volume 8.5 fL (7.4-10.4); Platelet Count 161 thou/uL (130-400); RBC Distribution Width 11.8 % (11.5-14.5); Red Blood Cell (RBC) Count 5.14 mill/uL (4.70-6.10); White Blood Cell (WBC) Count 5.1 thou/uL (4.8-10.8)
[2020-04-19 04:30] LABS: ALT (SGPT) 16 U/L (8-55); AST (SGOT) 18 U/L (5-34); Albumin 3.5 g/dL (3.5-5.0); Alkaline Phosphatase 54 U/L (40-110); Anion Gap 15 mmol/L (10-20); BUN (Urea Nitrogen) 13 mg/dL (8.4-25.7); Bilirubin, Total 0.6 mg/dL (0.2-1.2); Calc. Creatinine Clearance 0 mL/min (70-130); Calcium 8.6 mg/dL (7.8-10.44); Carbon Dioxide 24 mmol/L (22-29); Chloride 98 mmol/L (98-107); Estimated GFR-MDRD 72; Globulin 3.8 g/dL (2.4-3.5); Glucose 282 mg/dL (70-105); Lipase 13 U/L (8-78); Potassium 4.1 mmol/L (3.5-5.1); Protein, Total 7.3 g/dL (6.0-8.3); Sodium 133 mmol/L (136-145)
[2020-04-19 04:38] LABS: Magnesium 1.6 mg/dL (1.6-2.6)
[2020-04-19] MEDS ORDERED: Furosemide 40 MG/4 ML VIAL ONE (05:04)
[2020-04-19 06:18] LABS: Bacteria/HPF None Seen HPF (None Seen); Bilirubin Negative (Negative); Blood, Urine Negative (Negative); Clarity Clear (Clear); Glucose, Urine (Dipstick) Greater than 1000 mg/dL (Negative); Leukocyte Negative Leu/uL (Negative); Nitrite Negative (Negative); Protein, Urine (Dipstick) 50 mg/dL (Neg-Trace); RBC/HPF 0-3 HPF (0-3); Squamous Epithelial None Seen HPF (0-3); Urobilinogen Normal mg/dL (Less than 2); WBC/HPF 0-3 HPF (0-3)
[2020-04-19 07:15] VITALS: BMI 48.5
--- NOTE | 2020-04-19 07:55 | CT ---
PRELIMINARY REPORT/[facility]/EMERGENCY AFTER HOURS PROCEDURE: EXAM: CTA Chest with Intravenous Contrast CLINICAL HISTORY: 60-year-old male with history of atrial fibrillation chest pain over 2 days. Patien t complains of shortness of breath with increasing cough no fever but has had subjective chills. TECHNIQUE: Axial CTA images of the chest with intravenous contrast. MIP reconstructed images were cre ated and reviewed. CONTRAST: With; ISOVUE 370,100mL COMPARISON: None provided. FINDINGS: PULMONARY ARTERIES There is no intraluminal filling defect suspicious for PE. AORTA No thoracic aortic aneurysm or dissection. LUNGS Patchy small to focal groundglass infiltrates are present scattered throughout. PLEURAL SPACES No pleural effusion. No pneumothorax. HEART AND MEDIASTINUM No cardiomegaly. No significant pericardial effusion. LYMPH NODES No lymphadenopathy. BONES No focal osseous abnormality or acute fracture. CHEST WALL AND UPPER ABDOMEN Fatty infiltration of liver is present. Gastric lap band procedure is present. Components are in satisfactory position. IMPRESSION: There is no PE. Shaggy multifocal infiltrates. Included within the differential should be Covid 19. ELECTRONICALLY SIGNED BY: Evelia Proctor MD Apr 19, 2020 6:03:18 AM CDT EMERGENT AFTER HOURS CT ANGIOGRAM THORAX WITH IV CONTRAST AND 3D RECONSTRUCTIONS: HISTORY: Shortness of breath and chest pain over last 2 days. History of atrial fibrillation. Increasing cough . COMPARISON: 10/07/2018. IMPRESSION: 1. Multifocal groundglass nodular densities greater at the periphery. Findings are suggestive of infe ctious or inflammatory process and possibly atypical infectious process. Viral pneumonitis in the correct clinical scenario is also a differential consideration (COVID 19). 2[address] evidence of a pulmonary embolus. 3. Vascular calcifications in the aortic arch. Thoracic aorta is normal in caliber without evidence o f an aortic dissection. 4. Evidence of gastric banding. 5. Findings are in agreement with pulmonary report by [facility]. Transcribed Date/Time: 04/19/2020 9:10 AM
[2020-04-19] MEDS ORDERED: Aspirin 325 MG TAB PO SCH (09:00)
[2020-04-19] MEDS ORDERED: Enoxaparin Sodium 120 MG/0.8 ML SYRINGE SC SCH ×2 (09:00→09:30)
[2020-04-19] MEDS ORDERED: Carvedilol 3.125 MG TAB PO SCH (09:45)
--- NOTE | 2020-04-19 09:51 | RAD ---
PORTABLE CHEST: HISTORY: Chest pain. COMPARISON: 04/12/2019. FINDINGS: Lungs appear clear of infiltrate. Mild cardiomegaly is again noted. Vasculature upper normal. IMPRESSION: No acute process identified. POS: [facility]
[2020-04-19] MEDS ORDERED: Dextrose 5% in Water 1,000 ML IV PRN (09:56)
[2020-04-19] MEDS ORDERED: Dextrose 50% Abboject 50 ML SYRINGE SLOW IVP PRN (09:56)
--- NOTE | 2020-04-19 09:59 | PDOC.HHP ---
Hospitalist HPI - History of Present Illness Palpitations shortness of breath History of Present Illness: Patient is a 60-year-old male with a history of atrial fib/atrial flutter who was admitted here approximately 1 year ago with problems related to that. Patient has inability to afford prescribed medications. He is not been taking any medications for the past year. Patient reports that approximately 1 week ago he started experiencing palpitations. Associated with that he had severe fatigue and some shortness of breath. The patient was noting his heart rate was speeding up and slowing down. He felt like it was better with rest but was intermittent none the last he progressed to more profound fatigue and developed a cough with some head congestion and had an episode of diarrhea he also has had anorexia for several days and no appetite at all also reported the sensation that his fingertips felt burned starting a couple of days ago he does have some orthopnea although he is lying down at the time of my exam and appears to be comfortable and says he is doing well with that right now he denies having fever but he has had chills and shivering associated with that he has no known COVID exposures he denies any changes to his taste and smell. ED Course: In the emergency department there was concern for possible arrhythmia and congestive heart failure although he had a normal BNP. Patient received a dose of Lasix. Hospitalist ROS - Review of Systems Constitutional: reports: chills, malaise. denies: fever Respiratory: reports: cough, shortness of breath Cardiovascular: reports: chest pain, palpitations, orthopnea Gastrointestinal: reports: diarrhea All other systems reviewed; all pertinent +/- noted in HPI/Subj - Medication Medications: Active Medications Generic Name Dose Route Start Last Admin Trade Name Freq PRN Reason Stop Dose Admin Aspirin 325 mg 04/19/20 09:00 04/19/20 08:34 Aspirin PO 04/19/20 18:00 325 mg DAILY FREDY Administration Patient has been taking no medications at home. Hospitalist History - Past Medical History Source: patient Cardiac: reports: AFIB, CHF Musculoskeletal: reports: Other (Chronic lymphedema of the lower extremities) Endocrine: reports: Diabetes - Past Surgical History Other Surgical History: Bilateral knee surgeries, gastric band - Family History Family History: reports: cardiac disorder, diabetes mellitus (Father) Other Family History: Alzheimer's dementia associated with his mother - Social History Smoking Status: Never smoker Alcohol: reports: Rare Drugs: reports: none Living Situation: Alone Other Social History: Patient is single. He is a full code. His surrogate decision maker would be his brother Feliberto. - Exam General Appearance: NAD, awake alert General - other findings: Morbidly obese ENT: dry oral mucosa Neck: supple, symmetric, no JVD, no thyromegaly, no lymphadenopathy, no carotid bruit Heart: RRR, no murmur, no gallops, no rubs, normal peripheral pulses Respiratory: CTAB, no wheezes, no rales, no ronchi, normal chest expansion, no tachypnea, normal percussion Gastrointestinal: soft, non-tender, non-distended, normal bowel sounds, no palpable masses, no hepatomegaly, no splenomegaly, no bruit Extremities: no cyanosis, no clubbing, no edema Extremities - other findings: He does have chronic stasis dermatitis of BLE's. Skin: normal turgor Neurological: no focal deficits Musculoskeletal: normal tone, normal strength, no muscle wasting Psychiatric: normal affect, normal behavior, A&O x 3 Hospitalist Results - Labs Result Diagrams: 04/19/20 04:03 04/19/20 04:03 Lab results: WBC 5.1 thou/uL (4.8-10.8) 04/19/20 04:03 Hgb 15.7 g/dL (14.0-18.0) 04/19/20 04:03 Hct 48.1 % (42.0-52.0) 04/19/20 04:03 MCV 93.5 fL (78.0-98.0) 04/19/20 04:03 Plt Count 161 thou/uL (130-400) 04/19/20 04:03 Neutrophils % 66.7 % (42.0-75.0) 04/19/20 04:03 Sodium 133 mmol/L (136-145) L 04/19/20 04:03 Potassium 4.1 mmol/L (3.5-5.1) 04/19/20 04:03 Chloride 98 mmol/L (98-107) 04/19/20 04:03 Carbon Dioxide 24 mmol/L (22-29) 04/19/20 04:03 BUN 13 mg/dL (8.4-25.7) 04/19/20 04:03 Creatinine 1.06 mg/dL (0.7-1.3) 04/19/20 04:03 Glucose 282 mg/dL (70-105) H 04/19/20 04:03 Calcium 8.6 mg/dL (7.8-10.44) 04/19/20 04:03 Total Bilirubin 0.6 mg/dL (0.2-1.2) 04/19/20 04:03 AST 18 U/L (5-34) 04/19/20 04:03 ALT 16 U/L (8-55) 04/19/20 04:03 Alkaline Phosphatase 54 U/L (40-110) 04/19/20 04:03 Creatine Kinase 36 U/L (30-200) 04/19/20 04:03 Troponin I 0.030 ng/mL (< 0.028) H 04/19/20 07:46 B-Natriuretic Peptide 204.6 pg/mL (0-100) H 04/19/20 04:03 Serum Total Protein 7.3 g/dL (6.0-8.3) 04/19/20 04:03 Albumin 3.5 g/dL (3.5-5.0) 04/19/20 04:03 Lipase 13 U/L (8-78) 04/19/20 04:03 Urine Ketones 10 mg/dL (Negative) A 04/19/20 05:30 Urine Blood Negative (Negative) 04/19/20 05:30 Urine Nitrite Negative (Negative) 04/19/20 05:30 Ur Leukocyte Esterase Negative Aly/uL (Negative) 04/19/20 05:30 Urine RBC 0-3 HPF (0-3) 04/19/20 05:30 Urine WBC 0-3 HPF (0-3) 04/19/20 05:30 Ur Squamous Epith Cells None Seen HPF (0-3) 04/19/20 05:30 Urine Bacteria None Seen HPF (None Seen) 04/19/20 05:30 - EKG Interpretation EKG: Monitor revealing intermittent atrial flutter and sinus rhythm - Radiology Interpretation CT scan - chest Status: report reviewed by me (Bilateral peripheral groundglass infiltrates concerning for possible atypical pneumonitis) Hospitalist H&P A/P - Problem (1) Acute respiratory failure with hypoxia Code(s): J96.01 - ACUTE RESPIRATORY FAILURE WITH HYPOXIA Status: Acute (2) Atrial flutter with rapid ventricular response Code(s): I48.92 - UNSPECIFIED ATRIAL FLUTTER Status: Acute (3) Suspected COVID-19 virus infection Code(s): Z20.828 - CONTACT W AND EXPOSURE TO [facility] VIRAL COMMUNICABLE DISEASES Status: Acute (4) History of congestive heart failure Code(s): Z86.79 - PERSONAL HISTORY OF OTHER DISEASES OF THE CIRCULATORY SYSTEM Status: Acute (5) Morbid obesity with BMI of 40.0-44.9, adult Code(s): E66.01 - MORBID (SEVERE) OBESITY DUE TO EXCESS CALORIES; Z68.41 - BODY MASS INDEX (BMI) 40.0-44.9, ADULT Status: Acute (6) Diabetes type 2, uncontrolled Code(s): E11.65 - TYPE 2 DIABETES MELLITUS WITH HYPERGLYCEMIA Status: Chronic Qualifiers: Glycemic state: with hyperglycemia Qualified Code(s): E11.65 - Type 2 diabetes mellitus with hyperglycemia - Plan Plan: Suspected COVID-19: This patient has had onset of shortness of breath, cough, profound fatigue, chills, diarrhea. He has a low normal white blood cell count with mild lymphopenia. CT scan of the chest shows bilateral peripheral groundglass infiltrates. All of this is consistent with COVID-19. The patient will be transferred to the COVID unit. He will be placed in isolation and COVID testing will be obtained. If the initial test is negative I will recommend a repeat given the high level of suspicion. He currently has no known exposures. History of congestive heart failure: Patient has a normal BNP. His CT findings could potentially be consistent with peripheral pulmonary edema. However, the normal BNP and the history of a normalized ejection fraction make that less likely. Patient's initial echo apparently showed an EF around 30 to 35%. His most recent one 1 year ago showed a normal ejection fraction with grade 1/3 diastolic dysfunction. Patient actually reports decreased lower extremity edema mitigating against that diagnosis. If anything he looks a little dry. May consider repeat echocardiogram once he has ruled out for COVID. Diabetes mellitus: Patient has not been on medications. Will obtain Accu-Cheks and order sliding scale insulin. Check a hemoglobin A1c. Atrial fib/flutter with rapid ventricular response: This patient has a history of this. He has not been on any medications because he cannot afford to purchase them. Will initiate full dose anticoagulation especially in light of the concern for COVID. I will resume Coreg at a low dose. He appears to be only intermittently having runs of atrial fibrillation which are spontaneously resolving for now.
[2020-04-19] MEDS ORDERED: Iopamidol-370 76% 500 ML 1 ML ONE (10:27)
[2020-04-19 10:55] LABS: Troponin I 0.044 ng/mL (< 0.028)
[2020-04-19] MEDS: HumaLOG 300 UNITS/3 ML VIAL SC PRN ×2 (12:11→17:33)
[2020-04-19] MEDS: Carvedilol 3.125 MG TAB PO SCH (16:04)
[2020-04-19 18:08] LABS: SARS-CoV-2 MS2 Positive; SARS-CoV-2 N Gene Positive; SARS-CoV-2 S Gene Positive; SARS-CoV-2 orf1ab Positive
[2020-04-19] MEDS: Enoxaparin Sodium 120 MG/0.8 ML SYRINGE SC SCH (20:35)
[2020-04-20] MEDS: Acetaminophen 325 MG TAB PO PRN ×2 (00:11→05:32)
[2020-04-20] MEDS ORDERED: Diltiazem 125 MG in Sodium Chloride 0.9% 100 ML IVPB SCH (01:45)
[2020-04-20 05:38] LABS: #Lymphocytes 1.5 thou/uL (1.20-3.40); #Monocytes 0.7 thou/uL (0.11-0.59); #Neutrophils 2.7 thou/uL (1.40-6.50); %Basophils 0.5 % (0.0-1.0); %Eosinophils 0.2 % (0.0-10.0); %Lymphocytes 30.5 % (21.0-51.0); %Monocytes 14.9 % (0.0-10.0); %Neutrophils 53.8 % (42.0-75.0); Hemoglobin 15.2 g/dL (14.0-18.0); Mean Corpuscular HGB CONC 32.9 g/dL (32.0-36.0); Mean Corpuscular Hemoglobin 30.5 pg (27.0-31.0); Mean Corpuscular Volume 92.8 fL (78.0-98.0); Mean Platelet Volume 8.6 fL (7.4-10.4); Platelet Count 134 thou/uL (130-400); RBC Distribution Width 11.8 % (11.5-14.5); Red Blood Cell (RBC) Count 4.97 mill/uL (4.70-6.10)
[2020-04-20 05:58] LABS: Hemoglobin A1c 13.3 % (4.0-6.0)
[2020-04-20 06:17] LABS: ALT (SGPT) 15 U/L (8-55); AST (SGOT) 21 U/L (5-34); Albumin 3.2 g/dL (3.5-5.0); Alkaline Phosphatase 45 U/L (40-110); Anion Gap 15 mmol/L (10-20); BUN (Urea Nitrogen) 17 mg/dL (8.4-25.7); Bilirubin, Total 0.6 mg/dL (0.2-1.2); Calc. Creatinine Clearance 187 mL/min (70-130); Calcium 8.1 mg/dL (7.8-10.44); Carbon Dioxide 23 mmol/L (22-29); Chloride 97 mmol/L (98-107); Estimated GFR-MDRD 89; Globulin 3.4 g/dL (2.4-3.5); Glucose 251 mg/dL (70-105); Potassium 3.8 mmol/L (3.5-5.1); Protein, Total 6.6 g/dL (6.0-8.3); Sodium 131 mmol/L (136-145)
[2020-04-20] MEDS: HumaLOG 300 UNITS/3 ML VIAL SC PRN (06:32)
[2020-04-20] MEDS: Enoxaparin Sodium 120 MG/0.8 ML SYRINGE SC SCH ×2 (08:03→21:38)
[2020-04-20] MEDS: Carvedilol 3.125 MG TAB PO SCH ×3 (08:04→19:20)
[2020-04-20] MEDS: Sodium Chloride 0.9% 250 ML 250 ML IVPB SCH ×2 (10:00→13:00)
--- NOTE | 2020-04-20 15:08 | EKG ---
Test Reason : Blood Pressure : / mmHG Vent. Rate : 125 BPM Atrial Rate : 150 BPM P-R Int : 122 ms QRS Dur : 094 ms QT Int : 312 ms P-R-T Axes : 108 -44 065 degrees QTc Int : 450 ms Sinus tachycardia with occasional , and consecutive Premature ventricular complexes and Fusion comple xes Left axis deviation Pulmonary disease pattern Abnormal ECG Supraventricular tachycardia vs Normal sinus rhythm Confirmed by BRIT WHITAKER, IGNACIO ([id number]), multimedia editor ADEN AMIN ([id number]) on 04/20/2020 3:07:47 PM Referred By: Confirmed By:IGNACIO PEREA MD
--- NOTE | 2020-04-20 18:18 | RAD ---
PORTABLE CHEST: 04/20/20 HISTORY: COVID positive, shortness of breath. COMPARISON: 04/19/20 exam. Heart size appears slightly enlarged. Mediastinal structures appear unremarkable. No infiltrative capri nge is noted. It is difficult to appreciate the ground glass opacity noted on the previous chest CT. IMPRESSION: Stable exam. It is difficult to appreciate the ground glass infiltrates noted on the previous CT. POS: REJI
[2020-04-20] MEDS ORDERED: Amiodarone 450 MG in Dextrose 5% in Water 250 ML IVPB SCH (18:45)
[2020-04-20] MEDS ORDERED: Digoxin 0.5 MG/2 ML AMP SLOW IVP SCH (18:45)
[2020-04-20] MEDS ORDERED: Amiodarone 150 MG, Admixture Fee 1 EACH in Dextrose 5% in Water 100 ML IVPB SCH (19:00)
--- NOTE | 2020-04-20 19:32 | CON ---
DATE OF CONSULTATION: HISTORY OF PRESENT ILLNESS: Anirudh Alvarado, the 3rd, is a 60-year-old male who has been evaluated by Dr. Read in the past. He was hospitalized here in 09/2018 with shortness of breath. He was found to be in atrial fibrillation with rapid ventricular response and started on diltiazem and eventually carvedilol. Echocardiogram revealed ejection fraction of 30% to 35%. He ultimately underwent cardiac catheterization during that admission and ejection fraction was 40%. He had normal coronary arteries. He was seen once in the office for followup in 2017 and was in atrial fibrillation with heart rate in the 130s. Medicines were adjusted. Then, it was felt that he might need to undergo cardioversion; however, he never did return for followup. At the present time, he takes no medications and states that he rarely has episodes of rapid heartbeat. Whenever he does if he rests, this will resolve in 30 minutes to an hour. He now has been noticing increased palpitations over the last week. He also has had problems with increased shortness of breath and cough. He denies any fever, but does state that he had chills. He has been found to be COVID positive. Since being admitted, he has had episodes of atrial fibrillation with rapid ventricular response as well as episodes of atrial flutter. At times, he is in sinus rhythm. He states he has fullness in his chest whenever his heart is beating rapidly. PAST MEDICAL HISTORY: 1. Paroxysmal atrial fibrillation. 2. Left ventricular dysfunction. 3. Chronic lymphedema of the lower extremities. 4. History of 2 episodes of DVT in the right leg, the last of which was 10 years ago. MEDICATIONS: None. ALLERGIES: NONE. OPERATIONS: 1. Arthroscopy of both knees. 2. Lap band. SOCIAL HISTORY: He does not smoke and rarely drinks. 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 PHYSICAL EXAMINATION: VITAL SIGNS: Blood pressure 118/63 and pulse of 84, although at times when he goes into atrial flutter, it goes in the 150s to 160s. Exam is deferred due to COVID status. LABORATORY DATA: Most recent EKG from around noon today reveals atrial flutter with 2:1 block with heart rate of 149 per minute, poor R-wave progression, nonspecific ST and T-wave changes. CBC is unremarkable. D-dimer 0.44. Sodium 131, potassium 3.8, chloride 97, carbon dioxide 23, BUN 17, creatinine 0.88. Chest CTA revealed no evidence of pulmonary embolism. He does have ground-glass nodular densities in his lungs, consistent with atypical infectious process. IMPRESSION: 1. COVID positive. 2. Increased episodes of atrial arrhythmias over the last week, probably exacerbated by his COVID infection. He has not been on any medications for the last year due to inability to afford them. 3. Nonischemic cardiomyopathy with last ejection fraction of 40% at catheterization in 09/2018. 4. Normal coronary arteries in 09/2018. 5. Obesity. 6. History of deep vein thrombosis, last of which was more than 10 years ago. PLAN: Agree with anticoagulation with Lovenox 1 mg/kg b.i.d. He will be given digoxin 0.5 mg IV and restarted on amiodarone intravenously in the hopes of better control of his atrial rate. Echocardiogram will need to be deferred due to COVID positive. Also, if he continues to have problems with this once he has recovered from the coronavirus, consideration may need to be given to ablation of his atrial flutter. We will follow the patient with you. Job ID: [id number] MTDD
--- NOTE | 2020-04-20 19:49 | PDOC.HOSPP ---
- Subjective Encounter Date: 04/20/20 Encounter Time: 15:00 Subjective: F/u: COVID+ infection The patient reports severe fatigue. He continues to cough a lot and has no energy. He reports decreased appetite. Patient states he is unable to stand up due to dizziness Patient noted to be in afib, with heart rate in the 160's this morning. Had improvement with 250 cc bolus to HR 113. Given another 250 cc bolus. Chest Xray clear. Orthostatics still positive - Objective Vital Signs & Weight: Vital Signs (12 hours) Temp Pulse Resp BP BP BP Pulse Ox 04/20/20 18:00 84 83/58 L 118/63 04/20/20 11:22 96.9 F L 109 H 20 108/79 94 L 04/20/20 10:00 74 137/87 04/20/20 09:00 50 L 123/70 04/20/20 08:09 98/75 Weight Admit Weight 319 lb Weight 319 lb 3.2 oz I&O: 04/19/20 04/20/20 04/21/20 06:59 06:59 06:59 Intake Total 1210 Output Total 430 300 Balance 780 -300 Result Diagrams: 04/20/20 05:22 04/20/20 05:22 Additional Labs: Accuchecks 04/20/20 04/20/20 04/19/20 17:42 12:16 20:44 POC Glucose 227 H 280 H 220 H Hospitalist ROS - Review of Systems Constitutional: denies: fever, chills - Medication Medications: Active Medications Generic Name Dose Route Start Last Admin Trade Name Freq PRN Reason Stop Dose Admin Acetaminophen 650 mg 04/19/20 09:27 04/20/20 05:32 Tylenol PO 650 mg Q4H PRN Administration Headache/Fever/Mild Pain (1-3) Enoxaparin Sodium 120 mg 04/19/20 21:00 04/20/20 08:03 Lovenox SC 120 mg 0900,2100 FREDY Administration Insulin Human Lispro 0 units 04/19/20 09:56 04/20/20 06:32 Humalog SC 4 unit .MILD SLIDING SCALE PRN Administration Mild Correctional Scale Sodium Chloride 10 ml 04/19/20 09:00 04/20/20 10:41 Flush - Normal Saline IVF Not Given Q12HR FREDY - Exam General Appearance: NAD, awake alert General - other findings: obese Eye: PERRL, anicteric sclera ENT: normocephalic atraumatic, no oropharyngeal lesions Neck: no JVD Heart: RRR, no murmur, no gallops, no rubs Respiratory - other findings: diminished breath sounds Gastrointestinal: soft, normal bowel sounds Gastrointestinal - other findings: belly distended Extremities: no cyanosis, no clubbing, no edema Skin: normal turgor, no lesions, no rashes Neurological: cranial nerve grossly intact, normal sensation to touch, no focal deficits, no new deficit Hosp A/P - Plan Chest CTA: no PE. vascular calcifications in the aortic arch. Multifocal ground glass nodular densities This is a 60 year old male with COVID infection Orthostatic hypotension Afib with RVR - s/p 500 cc bolus. Will give another 1L bolus since orthostatics positive. - continue with maintenance fluids after - continue with amiodarone COVID + pneumonia - patient with bilateral infiltrates - continue with supportive care. Not requiring oxygen at this time Code status: full code
[2020-04-20] MEDS ORDERED: Sodium Chloride 0.9% 1,000 ML IV SCH (20:00)
[2020-04-21] MEDS: Amiodarone 450 MG, Admixture Fee 1 EACH in Dextrose 5% in Water 250 ML IVPB SCH ×2 (04:30→21:17)
[2020-04-21 05:03] LABS: Hemoglobin 14.7 g/dL (14.0-18.0); Mean Corpuscular HGB CONC 32.9 g/dL (32.0-36.0); Mean Corpuscular Hemoglobin 30.5 pg (27.0-31.0); Mean Corpuscular Volume 92.6 fL (78.0-98.0); Mean Platelet Volume 8.8 fL (7.4-10.4); Platelet Count 127 thou/uL (130-400); RBC Distribution Width 11.7 % (11.5-14.5); Red Blood Cell (RBC) Count 4.82 mill/uL (4.70-6.10); White Blood Cell (WBC) Count 5.2 thou/uL (4.8-10.8)
[2020-04-21 05:20] LABS: Anion Gap 12 mmol/L (10-20); BUN (Urea Nitrogen) 13 mg/dL (8.4-25.7); Calc. Creatinine Clearance 196 mL/min (70-130); Calcium 8.2 mg/dL (7.8-10.44); Carbon Dioxide 25 mmol/L (22-29); Chloride 98 mmol/L (98-107); Estimated GFR-MDRD Greater than 90; Glucose 282 mg/dL (70-105); Potassium 4.1 mmol/L (3.5-5.1); Sodium 131 mmol/L (136-145)
[2020-04-21] MEDS: HumaLOG 300 UNITS/3 ML VIAL SC PRN (06:32)
[2020-04-21] MEDS: Enoxaparin Sodium 120 MG/0.8 ML SYRINGE SC SCH ×2 (07:40→21:16)
[2020-04-21] MEDS ORDERED: Digoxin 0.5 MG/2 ML AMP SLOW IVP SCH ×2 (13:00→19:00)
--- NOTE | 2020-04-21 16:40 | PDOC.HOSPP ---
- Subjective Encounter Date: 04/21/20 Encounter Time: 06:00 Subjective: The patient is reporting diarrhea today. Per nursing it does not smell like C diff. He denies abdominal pain, nausea, vomiting. He still has persistent dry cough and reports dizziness while standing The patient's blood pressure noted to be more elevated today 174/111, but per nursing patient was anxious. Repeat came to 150 - Objective Vital Signs & Weight: Vital Signs (12 hours) Temp Pulse Resp BP BP Pulse Ox 04/21/20 15:44 98.3 F 73 16 156/98 H 96 04/21/20 14:52 102 H 04/21/20 11:20 98.8 F 102 H 18 125/99 H 96 04/21/20 08:13 99.5 F 64 16 147/70 H 95 04/21/20 08:00 95 04/21/20 05:00 99.2 F 68 18 151/76 H 93 L Weight Admit Weight 319 lb Weight 319 lb 3.2 oz I&O: 04/20/20 04/21/20 04/22/20 06:59 06:59 06:59 Intake Total 1210 2120 730 Output Total 430 750 800 Balance 780 1370 -70 Result Diagrams: 04/21/20 04:51 04/21/20 04:51 Additional Labs: Accuchecks 04/21/20 04/20/20 04/20/20 11:08 21:47 17:42 POC Glucose 278 H 270 H 227 H Hospitalist ROS - Review of Systems Constitutional: denies: fever, chills - Medication Medications: Active Medications Generic Name Dose Route Start Last Admin Trade Name Khloe PRN Reason Stop Dose Admin Acetaminophen 650 mg 04/19/20 09:27 04/20/20 05:32 Tylenol PO 650 mg Q4H PRN Administration Headache/Fever/Mild Pain (1-3) Enoxaparin Sodium 120 mg 04/19/20 21:00 04/21/20 07:40 Lovenox SC 120 mg 0900,2100 FREDY Administration Amiodarone HCl 450 mg/ 259 mls @ 0 mls/hr 04/20/20 19:15 04/21/20 04:30 Miscellaneous Medication 1 IVPB 259 mls each/ Dextrose/Water INF FREDY Administration Protocol As Directed Insulin Human Lispro 0 units 04/19/20 09:56 04/21/20 06:32 Humalog SC 4 unit .MILD SLIDING SCALE PRN Administration Mild Correctional Scale Sodium Chloride 10 ml 04/19/20 09:00 04/21/20 07:40 Flush - Normal Saline IVF 10 ml Q12HR FREDY Administration - Exam General Appearance: NAD, awake alert Eye: PERRL, anicteric sclera ENT: normocephalic atraumatic, no oropharyngeal lesions Neck: supple, no JVD Heart: RRR, no murmur, no gallops, no rubs Respiratory: CTAB, no wheezes, no rales, no ronchi Gastrointestinal: soft, non-tender, non-distended, normal bowel sounds Extremities: no cyanosis, no clubbing, no edema Skin: normal turgor, no lesions, no rashes Neurological: cranial nerve grossly intact, normal sensation to touch, no focal deficits, no new deficit Musculoskeletal: normal tone, normal strength, no muscle wasting Psychiatric: normal affect, normal behavior, A&O x 3, oriented to person Hosp A/P - Plan Chest CTA: no PE. vascular calcifications in the aortic arch. Multifocal ground glass nodular densities This is a 60 year old male with COVID infection Orthostatic hypotension- resolved - s/p 2L bolus yesterday Afib with RVR - improved with fluids - cardiology was consulted and started on amiodarone. Coreg was held due to ortohstatic hypotension - digoxin was started today as well #COVID + pneumonia #Diarrhea - patient with bilateral infiltrates - continue with supportive care. Not requiring oxygen at this time - pt with diarrhea noted , likely from COVID. Send stool cultures Code status: full code
[2020-04-22 05:38] LABS: Digoxin 0.84 ng/mL (0.8-2.0)
[2020-04-22] MEDS: HumaLOG 300 UNITS/3 ML VIAL SC PRN ×3 (06:09→17:53)
[2020-04-22] MEDS: Enoxaparin Sodium 120 MG/0.8 ML SYRINGE SC SCH (07:39)
[2020-04-22 09:44] LABS: Anion Gap 15 mmol/L (10-20); BUN (Urea Nitrogen) 11 mg/dL (8.4-25.7); Calc. Creatinine Clearance 190 mL/min (70-130); Calcium 8.8 mg/dL (7.8-10.44); Carbon Dioxide 22 mmol/L (22-29); Chloride 98 mmol/L (98-107); Estimated GFR-MDRD 90; Glucose 257 mg/dL (70-105); Potassium 4.4 mmol/L (3.5-5.1); Sodium 131 mmol/L (136-145)
[2020-04-22] MEDS: Amiodarone 450 MG, Admixture Fee 1 EACH in Dextrose 5% in Water 250 ML IVPB SCH (11:22)
--- NOTE | 2020-04-22 11:42 | PDOC.CPN ---
- Subjective Date: 04/22/20 Time: 11:38 Interval history: He is doing well. He is back in sinus. He states he would not know he had COVID if it weren't for his afib, he feels well otherwise. - Review of Systems General: denies: fever/chills, weight/appetite/sleep changes, night sweats, fatigue Respiratory: denies: cough, congestion, shortness of breath, exercise intolerance Cardiovascular: denies: chest pain, palpitation, edema, paroxysmal nocturnal dyspnea, orthopnea Gastrointestinal: denies: nausea, vomiting, diarrhea, constipation, abd pain, GI bleeding Musculoskeletal: denies: pain, tenderness, stiffness, swelling, arthritis/ arthralgias Neurological: denies: numbness, syncope, seizure, weakness - Objective Allergies/Adverse Reactions: Allergies Allergy/AdvReac Type Severity Reaction Status Date / Time No Known Allergies Allergy Verified 04/13/19 00:13 Visit Medications: Current Medications Acetaminophen (Tylenol) 650 mg PO Q4H PRN PRN Reason: Headache/Fever/Mild Pain (1-3) Last Admin: 04/20/20 05:32 Dose: 650 mg Amiodarone HCl (Cordarone) 400 mg PO BID FREDY Apixaban (Eliquis) 5 mg PO BID FREDY Dextrose/Water (Dextrose 50%) 25 gm SLOW IVP PRN PRN PRN Reason: Hypoglycemia Glucagon (Glucagon) 1 mg IM PRN PRN PRN Reason: Hypoglycemia Dextrose/Water (D5w) 1,000 mls @ 0 mls/hr IV .Q0M PRN PRN Reason: Hypoglycemia Amiodarone HCl 450 mg/Miscellaneous Medication 1 each/ Dextrose/Water 259 mls @ 0 mls/hr IVPB INF FREDY; Protocol Stop: 04/22/20 23:59 Last Admin: 04/22/20 11:22 Dose: 259 mls Insulin Human Lispro (Humalog) 0 units SC .MILD SLIDING SCALE PRN PRN Reason: Mild Correctional Scale Last Admin: 04/22/20 06:09 Dose: 3 unit Sodium Chloride (Flush - Normal Saline) 10 ml IVF Q12HR FREDY Last Admin: 04/22/20 07:40 Dose: 10 ml Sodium Chloride (Flush - Normal Saline) 10 ml IVF PRN PRN PRN Reason: Saline Flush Vital Signs & Weight: Vital Signs Temp Pulse Resp BP BP BP Pulse Ox 04/22/20 07:30 99 F 70 18 139/76 94 L 04/22/20 04:00 98.3 F 97 18 131/80 94 L 04/22/20 00:00 70 18 159/86 H 04/21/20 23:49 73 Admit Weight 319 lb Weight 319 lb 3.2 oz - Physical Exam General: alert & oriented x3, no apparent distress Cardiac: regular rate and rhythm Musculoskeletal: no pain - Labs Result Diagrams: 04/21/20 04:51 04/22/20 09:09 Troponin/CKMB Troponin I 0.027 ng/mL (< 0.028) 04/21/20 04:51 - Telemetry Sinus rhythms and dysrhythmias: sinus rhythm - Assessment/Plan Assessment/Plan: 1. COVID 19 Positve with mionimal symptoms 2. Afib RVR, back in sinus. 3. Hx of Non ischemic CM 4. Non compliance. PLAN: - Amiodarone load at 400 mg BID for 10 days then 200 mg daily [facility], will try to enroll in program to supply medications from company. - Will start low dose BB and ACEI - Discharge likely Wednesday.
--- NOTE | 2020-04-22 15:48 | PDOC.HOSPP ---
- Subjective Encounter Date: 04/22/20 Encounter Time: 15:50 Subjective: The patient is still weak and is not able to walk much due to dizziness. His heart rate is better controlled His diarrhea has resolved. He still has a dry cough. No chest pain - Objective Vital Signs & Weight: Vital Signs (12 hours) Temp Pulse Resp BP BP Pulse Ox 04/22/20 12:00 98.5 F 64 20 145/84 H 95 04/22/20 07:30 99 F 70 18 139/76 94 L 04/22/20 04:00 98.3 F 97 18 131/80 94 L Weight Admit Weight 319 lb Weight 319 lb 3.2 oz I&O: 04/21/20 04/22/20 04/23/20 06:59 06:59 06:59 Intake Total 2120 1465 120 Output Total 750 1575 Balance 1370 -110 120 Result Diagrams: 04/21/20 04:51 04/22/20 09:09 Additional Labs: Accuchecks 04/22/20 04/22/20 04/21/20 11:30 06:08 21:24 POC Glucose 234 H 231 H 255 H 04/21/20 16:44 POC Glucose 239 H Hospitalist ROS - Review of Systems Constitutional: denies: fever, chills - Medication Medications: Active Medications Generic Name Dose Route Start Last Admin Trade Name Freq PRN Reason Stop Dose Admin Acetaminophen 650 mg 04/19/20 09:27 04/20/20 05:32 Tylenol PO 650 mg Q4H PRN Administration Headache/Fever/Mild Pain (1-3) Amiodarone HCl 450 mg/ 259 mls @ 0 mls/hr 04/20/20 19:15 04/22/20 11:22 Miscellaneous Medication 1 IVPB 04/22/20 23:59 259 mls each/ Dextrose/Water INF FREDY Administration Protocol As Directed Insulin Human Lispro 0 units 04/19/20 09:56 04/22/20 12:00 Humalog SC 3 unit .MILD SLIDING SCALE PRN Administration Mild Correctional Scale Sodium Chloride 10 ml 04/19/20 09:00 04/22/20 07:40 Flush - Normal Saline IVF 10 ml Q12HR FREDY Administration - Exam General Appearance: NAD, awake alert Eye: PERRL, anicteric sclera ENT: normocephalic atraumatic, no oropharyngeal lesions Neck: no JVD Heart: RRR, no murmur, no gallops, no rubs Respiratory: CTAB, no wheezes, no rales, no ronchi Gastrointestinal: soft, non-tender, non-distended, normal bowel sounds Gastrointestinal - other findings: obese Extremities: no cyanosis, no clubbing, no edema Skin: normal turgor, no lesions, no rashes Neurological: cranial nerve grossly intact, normal sensation to touch, no focal deficits, no new deficit Hosp A/P - Plan Chest CTA: no PE. vascular calcifications in the aortic arch. Multifocal ground glass nodular densities This is a 60 year old male with COVID infection Afib with RVR - improved with fluids - amiodarone was started 04/21. Load at 400 mg bid x 10 days, then 200 mg daily - start eliquis 5 mg bid - not on coreg due to orthostatic hypotension #COVID + pneumonia #Diarrhea- resolved - patient with bilateral infiltrates - continue with supportive care. Not requiring oxygen at this time Orthostatic hypotension- resolved - s/p 2L bolus and IV fluids Hyponatremia - sodium 131, encourage oral intake Code status: full code
[2020-04-22] MEDS: Apixaban 5 MG TAB PO SCH (20:36)
[2020-04-22] MEDS: Amiodarone 200 MG TAB PO SCH (20:36)
[2020-04-22] MEDS: Acetaminophen 325 MG TAB PO PRN (20:38)
[2020-04-23] MEDS: Acetaminophen 325 MG TAB PO PRN (04:50)
[2020-04-23 05:26] LABS: Hemoglobin 14.9 g/dL (14.0-18.0)
[2020-04-23 05:46] LABS: Anion Gap 14 mmol/L (10-20); BUN (Urea Nitrogen) 11 mg/dL (8.4-25.7); Calc. Creatinine Clearance 209 mL/min (70-130); Calcium 8.3 mg/dL (7.8-10.44); Carbon Dioxide 26 mmol/L (22-29); Chloride 97 mmol/L (98-107); Estimated GFR-MDRD Greater than 90; Glucose 195 mg/dL (70-105); Potassium 4.1 mmol/L (3.5-5.1); Sodium 133 mmol/L (136-145)
[2020-04-23] MEDS: Amiodarone 200 MG TAB PO SCH ×2 (09:11→19:28)
[2020-04-23] MEDS: Apixaban 5 MG TAB PO SCH ×2 (09:11→19:28)
--- NOTE | 2020-04-23 13:05 | PDOC.CPN ---
- Subjective Date: 04/23/20 Time: 13:03 Interval history: Doing well. No SOB. Remains in sinus. - Review of Systems General: denies: fever/chills, weight/appetite/sleep changes, night sweats, fatigue Respiratory: denies: cough, congestion, shortness of breath, exercise intolerance Cardiovascular: denies: chest pain, palpitation, edema, paroxysmal nocturnal dyspnea, orthopnea Gastrointestinal: denies: nausea, vomiting, diarrhea, constipation, abd pain, GI bleeding Musculoskeletal: denies: pain, tenderness, stiffness, swelling, arthritis/ arthralgias Neurological: denies: numbness, syncope, seizure, weakness - Objective Allergies/Adverse Reactions: Allergies Allergy/AdvReac Type Severity Reaction Status Date / Time No Known Allergies Allergy Verified 04/13/19 00:13 Visit Medications: Current Medications Acetaminophen (Tylenol) 650 mg PO Q4H PRN PRN Reason: Headache/Fever/Mild Pain (1-3) Last Admin: 04/23/20 04:50 Dose: 650 mg Amiodarone HCl (Cordarone) 400 mg PO BID [facility] Last Admin: 04/23/20 09:11 Dose: 400 mg Apixaban (Eliquis) 5 mg PO BID [facility] Last Admin: 04/23/20 09:11 Dose: 5 mg Dextrose/Water (Dextrose 50%) 25 gm SLOW IVP PRN PRN PRN Reason: Hypoglycemia Glucagon (Glucagon) 1 mg IM PRN PRN PRN Reason: Hypoglycemia Dextrose/Water (D5w) 1,000 mls @ 0 mls/hr IV .Q0M PRN PRN Reason: Hypoglycemia Insulin Human Lispro (Humalog) 0 units SC .MILD SLIDING SCALE PRN PRN Reason: Mild Correctional Scale Last Admin: 04/22/20 17:53 Dose: 4 unit Sodium Chloride (Flush - Normal Saline) 10 ml IVF Q12HR [facility] Last Admin: 04/23/20 09:12 Dose: 10 ml Sodium Chloride (Flush - Normal Saline) 10 ml IVF PRN PRN PRN Reason: Saline Flush Vital Signs & Weight: Vital Signs Temp Pulse Resp BP BP BP BP 04/23/20 09:19 94 119/76 04/23/20 09:17 70 139/78 04/23/20 09:15 99.0 F 60 18 150/87 H 06/09/20 05:00 98.7 F 61 16 151/84 H Pulse Ox 04/23/20 09:19 04/23/20 09:17 04/23/20 09:15 93 L 04/23/20 05:00 94 L Admit Weight 319 lb Weight 323 lb 3.2 oz - Physical Exam General: alert & oriented x3 Cardiac: regular rate and rhythm - Labs Result Diagrams: 04/23/20 05:18 04/23/20 05:18 Troponin/CKMB Troponin I 0.027 ng/mL (< 0.028) 04/21/20 04:51 - Telemetry Sinus rhythms and dysrhythmias: sinus rhythm - Assessment/Plan Assessment/Plan: 1. COVID 19 Positve with mionimal symptoms 2. Afib RVR, back in sinus. 3. Hx of Non ischemic CM 4. Non compliance. PLAN: - Amiodarone load at 400 mg BID for 9 days then 200 mg daily - Eliquis for stroke prophylaxis, will try to enroll in program to supply medications from company. - Will start low dose BB and ACEI - Discharge tomorrow.
--- NOTE | 2020-04-23 16:24 | PDOC.HOSPP ---
- Subjective Encounter Date: 04/23/20 Encounter Time: 11:30 Subjective: F/u: COVID The patient says his cough is improving and minimal. He still has some dizziness while standing. Nurses checked orthostatics and they dropped from 150 to 120. patient stated he was slightly dizzy while ambulating. HE denies chest pain PT will see him today - Objective Vital Signs & Weight: Vital Signs (12 hours) Temp Pulse Resp BP BP BP BP 04/23/20 14:49 04/23/20 12:30 98.6 F 71 20 136/91 H 04/23/20 09:19 94 119/76 04/23/20 09:17 70 139/78 04/23/20 09:15 99.0 F 60 18 150/87 H 04/23/20 05:00 98.7 F 61 16 151/84 H Pulse Ox Pulse Ox 04/23/20 14:49 95 04/23/20 12:30 95 04/23/20 09:19 04/23/20 09:17 04/23/20 09:15 93 L 04/23/20 05:00 94 L Weight Admit Weight 319 lb Weight 323 lb 3.2 oz I&O: 04/22/20 04/23/20 04/24/20 06:59 06:59 06:59 Intake Total 1465 600 240 Output Total 1575 700 300 Balance -110 -100 -60 Result Diagrams: 04/23/20 05:18 04/23/20 05:18 Additional Labs: Accuchecks 04/23/20 04/22/20 04/22/20 12:41 20:48 16:50 POC Glucose 244 H 200 H 294 H Hospitalist ROS - Review of Systems Constitutional: denies: fever, chills - Medication Medications: Active Medications Generic Name Dose Route Start Last Admin Trade Name Freq PRN Reason Stop Dose Admin Acetaminophen 650 mg 04/19/20 09:27 04/23/20 04:50 Tylenol PO 650 mg Q4H PRN Administration Headache/Fever/Mild Pain (1-3) Amiodarone HCl 400 mg 04/22/20 21:00 04/23/20 09:11 Cordarone PO 400 mg BID FREDY Administration Apixaban 5 mg 04/22/20 21:00 04/23/20 09:11 Eliquis PO 5 mg BID FREDY Administration Insulin Human Lispro 0 units 04/19/20 09:56 04/22/20 17:53 Humalog SC 4 unit .MILD SLIDING SCALE PRN Administration Mild Correctional Scale Sodium Chloride 10 ml 04/19/20 09:00 04/23/20 09:12 Flush - Normal Saline IVF 10 ml Q12HR FREDY Administration - Exam General Appearance: NAD, awake alert Eye: PERRL, anicteric sclera ENT: normocephalic atraumatic, no oropharyngeal lesions Neck: no JVD Heart: RRR, no murmur, no gallops, no rubs Respiratory: CTAB, no wheezes, no rales, no ronchi Gastrointestinal: soft, non-tender, non-distended, normal bowel sounds Extremities: no cyanosis, no clubbing, no edema Skin: normal turgor, no lesions, no rashes Neurological: cranial nerve grossly intact, normal sensation to touch, no focal deficits, no new deficit Musculoskeletal: normal tone, normal strength, no muscle wasting Psychiatric: normal affect, normal behavior, A&O x 3, oriented to person Hosp A/P - Plan Chest CTA: no PE. vascular calcifications in the aortic arch. Multifocal ground glass nodular densities This is a 60 year old male with COVID infection Afib with RVR - improved with fluids - amiodarone was started 04/21. Load at 400 mg bid x 10 days, then 200 mg daily - started eliquis 5 mg bid - not on coreg due to orthostatic hypotension Orthostatic hypotension- - will resume IV fluids at low dose 75/hour for one liter then repeat #COVID + pneumonia #Diarrhea- resolved - patient with bilateral infiltrates - continue with supportive care. Not requiring oxygen at this time Hyponatremia - improving to 133 Physical deconditioning - PT will evaluate today Code status: full code
[2020-04-23] MEDS: Carvedilol 3.125 MG TAB PO SCH (16:25)
[2020-04-23] MEDS: Sodium Chloride 0.9% 1,000 ML IV SCH (16:27)
[2020-04-24] MEDS: Sodium Chloride 0.9% 1,000 ML IV SCH (04:17)
[2020-04-24 05:45] LABS: Hemoglobin 13.8 g/dL (14.0-18.0); Mean Corpuscular Hemoglobin 29.4 pg (27.0-31.0); Mean Corpuscular Volume 91.8 fL (78.0-98.0); Mean Platelet Volume 8.8 fL (7.4-10.4); Platelet Count 186 thou/uL (130-400); RBC Distribution Width 11.7 % (11.5-14.5); White Blood Cell (WBC) Count 5.5 thou/uL (4.8-10.8)
[2020-04-24 06:08] LABS: Anion Gap 13 mmol/L (10-20); BUN (Urea Nitrogen) 14 mg/dL (8.4-25.7); Calc. Creatinine Clearance 214 mL/min (70-130); Calcium 8.5 mg/dL (7.8-10.44); Carbon Dioxide 27 mmol/L (22-29); Chloride 98 mmol/L (98-107); Estimated GFR-MDRD Greater than 90; Glucose 227 mg/dL (70-105); Potassium 3.7 mmol/L (3.5-5.1); Sodium 134 mmol/L (136-145)
[2020-04-24] MEDS: Amiodarone 200 MG TAB PO SCH (08:44)
[2020-04-24] MEDS: Carvedilol 3.125 MG TAB PO SCH ×2 (08:44→16:53)
[2020-04-24] MEDS: Apixaban 5 MG TAB PO SCH (08:45)
[2020-04-24] MEDS ORDERED: Lisinopril 2.5 MG TAB PO SCH (09:00)
--- NOTE | 2020-04-24 16:18 | PDOC.CPN ---
- Subjective Date: 04/24/20 Time: 16:16 Interval history: Doing well. No new issues. - Review of Systems General: denies: fever/chills, weight/appetite/sleep changes, night sweats, fatigue Respiratory: denies: cough, congestion, shortness of breath, exercise intolerance Cardiovascular: denies: chest pain, palpitation, edema, paroxysmal nocturnal dyspnea, orthopnea Gastrointestinal: denies: nausea, vomiting, diarrhea, constipation, abd pain, GI bleeding Musculoskeletal: denies: pain, tenderness, stiffness, swelling, arthritis/ arthralgias Neurological: denies: numbness, syncope, seizure, weakness - Objective Allergies/Adverse Reactions: Allergies Allergy/AdvReac Type Severity Reaction Status Date / Time No Known Allergies Allergy Verified 04/13/19 00:13 Visit Medications: Current Medications Acetaminophen (Tylenol) 650 mg PO Q4H PRN PRN Reason: Headache/Fever/Mild Pain (1-3) Last Admin: 04/23/20 04:50 Dose: 650 mg Amiodarone HCl (Cordarone) 400 mg PO BID [facility] Last Admin: 04/24/20 08:44 Dose: 400 mg Apixaban (Eliquis) 5 mg PO BID [facility] Last Admin: 04/24/20 08:45 Dose: 5 mg Carvedilol (Coreg) 3.125 mg PO BID[facility] Last Admin: 04/24/20 08:44 Dose: 3.125 mg Dextrose/Water (Dextrose 50%) 25 gm SLOW IVP PRN PRN PRN Reason: Hypoglycemia Glucagon (Glucagon) 1 mg IM PRN PRN PRN Reason: Hypoglycemia Dextrose/Water (D5w) 1,000 mls @ 0 mls/hr IV .Q0M PRN PRN Reason: Hypoglycemia Insulin Glargine 8 units/ (Miscellaneous Medication) 0.08 mls @ 0 mls/hr SC [facility] Insulin Human Lispro (Humalog) 0 units SC .MILD SLIDING SCALE PRN PRN Reason: Mild Correctional Scale Last Admin: 04/22/20 17:53 Dose: 4 unit Lisinopril (Zestril) 1.25 mg PO DAILY [facility] Last Admin: 04/24/20 08:44 Dose: 1.25 mg Sodium Chloride (Flush - Normal Saline) 10 ml IVF Q12HR [facility] Last Admin: 06/10/20 08:45 Dose: 10 ml Sodium Chloride (Flush - Normal Saline) 10 ml IVF PRN PRN PRN Reason: Saline Flush Vital Signs & Weight: Vital Signs Temp Pulse Resp BP BP BP BP 04/24/20 12:45 97.9 F 65 17 135/72 126/68 134/64 04/24/20 08:59 96.6 F L 78 20 128/70 04/24/20 08:44 63 04/24/20 04:25 98.9 F 63 16 139/82 Pulse Ox 04/24/20 12:45 97 04/24/20 08:59 95 04/24/20 08:44 04/24/20 04:25 95 Admit Weight 319 lb Weight 323 lb 3.2 oz - Physical Exam General: alert & oriented x3 Cardiac: regular rate and rhythm Extremities: no edema Musculoskeletal: no pain - Labs Result Diagrams: 04/24/20 05:18 04/24/20 05:18 Troponin/CKMB Troponin I 0.027 ng/mL (< 0.028) 04/21/20 04:51 - Telemetry Sinus rhythms and dysrhythmias: sinus rhythm - Assessment/Plan Assessment/Plan: 1. COVID 19 Positve with mionimal symptoms 2. Afib RVR, back in sinus. 3. Hx of Non ischemic CM 4. Non compliance. PLAN: - Amiodarone load at 400 mg BID for 8 days then 200 mg daily - Eliquis for stroke prophylaxis, will try to enroll in program to supply medications from company. - Will start low dose BB and ACEI - Discharge any time from cardiac perspective. Will sign off. Please call with any questions.
[2020-04-24 17:18] VITALS: BP 125/72; TEMP 97.7
[2020-04-24 17:37] LABS: Hemoglobin 14.4 g/dL (14.0-18.0); Platelet Count 220 thou/uL (130-400)
[2020-04-24 17:55] LABS: Calc. Creatinine Clearance 199 mL/min (70-130); Estimated GFR-MDRD Greater than 90
[2020-04-24] MEDS ORDERED: Insulin Glargine 8 UNITS in Pre-Filled Syringe 1 EACH SC SCH (21:00)
--- NOTE | 2020-04-24 21:26 | DIS ---
DATE OF ADMISSION: 04/19/2020 DATE OF DISCHARGE: 04/24/2020 DISCHARGE DIAGNOSES: 1. Acute hypoxic respiratory failure secondary to COVID pneumonia. 2. Atrial flutter with rapid ventricular rate. 3. Orthostatic hypotension. 4. Diarrhea. 5. Hyponatremia. 6. Physical deconditioning. CONSULTATIONS: Cardiology with Edgar Read MD PROCEDURES PERFORMED: None. BRIEF HISTORY OF PRESENT ILLNESS: This is a 60-year-old male with past medical history of atrial fib/atrial flutter, who presented to the emergency room with severe fatigue, shortness of breath and palpitations. He also had some head congestion, cough, and diarrhea. When he presented to the emergency room, he was found to have a heart rate in the 70s. Temp was 99.5. His chest x-ray showed no acute process. CTA of his chest showed multifocal infiltrates. He was then tested for COVID, which came back positive. He was admitted for further workup. HOSPITAL COURSE: Acute hypoxic respiratory failure secondary to COVID pneumonia.: The patient was monitored in observation. He was not prescribed any antibiotics since this is most likely viral. The patient required oxygen during his hospital stay, but eventually was weaned down to room air. His cough had improved while he was in the hospital. He will be discharged with a cough suppressant. He will be also discharged with doxycycline for 5 days for bronchitis. He should get a repeat chest x-ray in 6 weeks. Atrial fibrillation with RVR: The patient was noted to have heart rate in the 160s initially. He was found to be orthostatic hypotensive and was given IV fluids with improvement in his heart rate. Initially, beta blockers were held and he was loaded with amiodarone. Eventually, he was able to tolerate Coreg as well at 3.125 mg. He was also started on anticoagulation with Eliquis. The patient's heart rate is normal on the day of discharge. . He will take 400 mg twice daily for nine days and 200 mg daily. He also takes Eliquis daily for stroke prophylaxis. He is also started on lisinopril and Coreg. He should follow up with Dr. Edgar Read in 6 weeks. Type 2 diabetes: The patient did have diabetes with an A1c of 13.3. He will be discharged with metformin. He will need to have follow up with his PCP in a week and will need to have a repeat A1c in 3 months. He will also be discharged with insulin 8 units at bedtime. He should have his blood sugars checked four times daily before each meal and at bedtime. He should follow up with an eye doctor and a trust mail clerk once a year. Hyponatremia: The patient's sodium was noted to be 133, which improved to 134 with fluids. DISCHARGE PHYSICAL EXAMINATION: VITAL SIGNS: Temperature 97.9, heart rate 65, respiratory rate 17, O2 saturation 97% on room air, and blood pressure 135/72. GENERAL: The patient is alert, awake, oriented x3. CVS: Regular rate and rhythm with no murmurs, rubs, or gallops. LUNGS: Diminished breath sounds bilaterally with no crackles. ABDOMEN: Positive bowel sounds, soft, nontender, and nondistended. EXTREMITIES: No edema. PERTINENT LABORATORY DATA: CBC 04/24: Shows mild hemoglobin of 13.8, likely dilutional from IV fluids. Rest of CBC unremarkable. BMP 04/24: Shows sodium 134. Rest of CBC unremarkable. Hemoglobin A1c: 13.3. LFT: Normal. Troponin I: Peaked at 0.044. Troponin was 0.027 on 04/21. TSH: 2.14. UA 04/19: Shows greater than 1000 glucose, 50 protein, 10 ketones. COVID PCR 04/19: Negative. IMAGING: Chest x-ray 04/19: No acute disease. CTA chest 04/19: shaggy multifocal infiltrates. Chest x-ray 04/20: Stable exam. Difficult to appreciate ground-glass opacities. DISCHARGE CONDITION: Stable. ACTIVITY: As tolerated. DIET: Diabetic diet. DISCHARGE INSTRUCTIONS: The patient to follow up with his PCP in a week. He should start taking metformin and insulin. He should follow up with Dr. Edgar Read in Cardiology in 6 weeks. He should get a repeat chest x-ray in 6 weeks. DISCHARGE MEDICATIONS: 1. Amiodarone 400 mg p.o. twice daily, then 200 mg daily. 2. Eliquis 5 mg p.o. b.i.d. 3. Coreg 3.125 mg p.o. b.i.d. 4. Lisinopril 1.25 mg p.o. daily. 5. Doxycycline 100 mg p.o. q.12 hours, quantity 14. 6. Metformin 500 mg p.o. b.i.d. 7. Lantus 8 units subcu at bedtime. Job ID: [id number] [facility]
== END 2020-04-24 19:53 | disposition home or self-care (01) | DRG 177 ==
LOC: ERS 03:40 → 2NO 05:30 → 2SW 10:57
PROVIDERS: ADMIT Internal Medicine; ATTEND Internal Medicine
PROC: 8E0ZXY6 Isolation (ICD-10-PCS; principal; 2020-04-19)
DX: U07.1 COVID-19 (principal); J96.01 Acute respiratory failure with hypoxia; J12.89 Other viral pneumonia; I42.8 Other cardiomyopathies; E87.1 Hypo-osmolality and hyponatremia; Z68.42 Body mass index [BMI] 45.0-49.9, adult; I48.92 Unspecified atrial flutter; I48.0 Paroxysmal atrial fibrillation; F32.9 Major depressive disorder, single episode, unspecified; E66.01 Morbid (severe) obesity due to excess calories; E11.65 Type 2 diabetes mellitus with hyperglycemia; I11.0 Hypertensive heart disease with heart failure; I50.9 Heart failure, unspecified; R19.7 Diarrhea, unspecified; I95.1 Orthostatic hypotension; Z91.19 Patient's noncompliance with other medical treatment and regimen; Z98.84 Bariatric surgery status
CPT/HCPCS: 36415; 36416; 36600; 71045; 71275; 80048; 80053; 80162; 81003; 81015; 82550; 82565; 83036; 83690; 83735; 83880; 84443; 84484; 85014; 85018; 85025; 85027; 85049; 85379; 86140; 87635; 93005; 93010; 96365; 96375; J0282; J1160; J1650; J1815; J1940; J3475; J3490; J7050; J7070; Q9967; U0003

== ENCOUNTER 2020-07-22 12:18 | Emergency (ER) | payer SELFPAY ==
[2020-07-22] MEDS ORDERED: HYDROcodone/Acetaminophen 5/325 mg Tablet ONE (13:15)
--- NOTE | 2020-07-22 13:55 | ULT ---
VENOUS DOPPLER ULTRASOUND OF THE LEFT LOWER EXTREMITY: HISTORY: Left lower extremity pain. TECHNIQUE: Rivas scale ultrasound with color flow and spectral Doppler imaging of the deep venous system of the l eft lower extremity performed. FINDINGS: The exam was limited due to patient's body habitus. The mid and distal pulmonary veins are not satis factorily visualized. The visualized portions of the common femoral, femoral, popliteal, deep femora l, posterior tibial, and greater saphenous veins demonstrate good flow, compressibility, and augmenta tion. IMPRESSION: Limited exam. No definite evidence of deep vein thrombosis in the left lower extremity. POS: OFF
[2020-07-22] MEDS ORDERED: cefTRIAXone\\ROCEPHIN 1 GM VIAL ONE (15:02)
== END 2020-07-22 15:05 | disposition home or self-care (01) ==
LOC: ERS 12:18
DX: M79.652 Pain in left thigh (principal); I87.8 Other specified disorders of veins; R60.0 Localized edema; I48.91 Unspecified atrial fibrillation; M19.90 Unspecified osteoarthritis, unspecified site; I50.9 Heart failure, unspecified; E11.9 Type 2 diabetes mellitus without complications; Z79.01 Long term (current) use of anticoagulants; Z79.84 Long term (current) use of oral hypoglycemic drugs; Z79.899 Other long term (current) drug therapy; Z86.718 Personal history of other venous thrombosis and embolism
CPT/HCPCS: J0696

== ENCOUNTER 2021-01-18 21:43 | Emergency (ER) | payer OTHER, SELFPAY ==
[2021-01-18 22:27] LABS: Band 31 % (5-11); Hemoglobin 11.9 g/dL (14.0-18.0); Lymphocytes 2 % (21-51); MDiff Complete? YES; Mean Corpuscular HGB CONC 33.1 g/dL (32.0-36.0); Mean Corpuscular Hemoglobin 31.7 pg (27.0-31.0); Mean Corpuscular Volume 95.6 fL (78.0-98.0); Mean Platelet Volume 8.5 fL (7.4-10.4); Neutrophil 67 % (42-75); Platelet Count 126 thou/uL (130-400); Platelet Morphology Comment Appears Adequate; RBC Distribution Width 13.5 % (11.5-14.5); Red Blood Cell (RBC) Count 3.76 mill/uL (4.70-6.10); White Blood Cell (WBC) Count 9.3 thou/uL (4.8-10.8)
[2021-01-18 22:35] LABS: ALT (SGPT) 58 U/L (8-55); AST (SGOT) 98 U/L (5-34); Albumin 2.8 g/dL (3.5-5.0); Alkaline Phosphatase 65 U/L (40-110); Anion Gap 16 mmol/L (10-20); BUN (Urea Nitrogen) 37 mg/dL (8.4-25.7); Bilirubin, Total 1.4 mg/dL (0.2-1.2); Calc. Creatinine Clearance 0 mL/min (70-130); Calcium 8.4 mg/dL (7.8-10.44); Carbon Dioxide 26 mmol/L (22-29); Chloride 95 mmol/L (98-107); Glucose 127 mg/dL (70-105); Potassium 3.8 mmol/L (3.5-5.1); Protein, Total 6.8 g/dL (6.0-8.3); Sodium 133 mmol/L (136-145)
[2021-01-18] MEDS ORDERED: Ketorolac Tromethamine 30 MG/ML VIAL ONE (23:01)
[2021-01-18] MEDS ORDERED: Fentanyl 100 MCG/2 ML VIAL ONE (23:08)
[2021-01-19] MEDS ORDERED: HYDROcodone/Acetaminophen 10/325 mg Tablet ONE (01:01)
== END 2021-01-19 02:31 | disposition home or self-care (01) ==
LOC: ERS 21:43
DX: S80.01XA Contusion of right knee, initial encounter (principal); I48.91 Unspecified atrial fibrillation; E11.9 Type 2 diabetes mellitus without complications; I50.9 Heart failure, unspecified; Z86.73 Personal history of transient ischemic attack (TIA), and cerebral infarction without residual deficits; Z79.84 Long term (current) use of oral hypoglycemic drugs; Z79.899 Other long term (current) drug therapy; W01.0XXA Fall on same level from slipping, tripping and stumbling without subsequent striking against object, initial encounter
CPT/HCPCS: 80053; 85025; 93005; 96374; J1885; J3010

== ENCOUNTER 2021-01-20 10:48 | Inpatient (IN) | payer OTHER, SELFPAY ==
[2021-01-20] MEDS ORDERED: Iopamidol-370 76% 500 ML 1 ML ONE (11:07)
[2021-01-20] MEDS ORDERED: Cefepime 2 GM VIAL ONE (11:35)
[2021-01-20 11:47] LABS: Bilirubin Moderate (Negative); Blood, Urine Negative (Negative); Glucose, Urine (Dipstick) Negative (Negative); Ketone, Urine Trace mg/dL (Negative); Leukocyte Negative (Negative); Nitrite Negative (Negative); Protein, Urine (Dipstick) Trace mg/dL (Neg-Trace)
[2021-01-20 11:52] LABS: Clarity Hazy (Clear)
[2021-01-20 11:53] LABS: Hemoglobin 12.3 g/dL (14.0-18.0); Mean Corpuscular HGB CONC 32.5 g/dL (32.0-36.0); Mean Corpuscular Hemoglobin 31.2 pg (27.0-31.0); Mean Corpuscular Volume 95.8 fL (78.0-98.0); Mean Platelet Volume 10.1 fL (7.4-10.4); Platelet Count 108 thou/uL (130-400); RBC Distribution Width 13.8 % (11.5-14.5); Red Blood Cell (RBC) Count 3.95 mill/uL (4.70-6.10); White Blood Cell (WBC) Count 7.2 thou/uL (4.8-10.8)
[2021-01-20 11:55] LABS: Bacteria/HPF Rare-Few HPF (None Seen); RBC/HPF None Seen HPF (0-3); Squamous Epithelial None Seen HPF (0-3); WBC/HPF 0-3 HPF (0-3)
[2021-01-20 12:01] LABS: INR-International Normal Ratio 1.2; PTT 39.6 sec (22.9-36.1); Prothrombin Time 15.6 sec (12.0-14.7)
[2021-01-20 12:19] LABS: ALT (SGPT) 52 U/L (8-55); AST (SGOT) 74 U/L (5-34); Albumin 2.6 g/dL (3.5-5.0); Alkaline Phosphatase 87 U/L (40-110); Anion Gap 17 mmol/L (10-20); BUN (Urea Nitrogen) 48 mg/dL (8.4-25.7); Bilirubin, Total 2.5 mg/dL (0.2-1.2); Calc. Creatinine Clearance 0 mL/min (70-130); Calcium 8.3 mg/dL (7.8-10.44); Carbon Dioxide 22 mmol/L (22-29); Chloride 95 mmol/L (98-107); Globulin 3.8 g/dL (2.4-3.5); Glucose 62 mg/dL (70-105); Potassium 3.6 mmol/L (3.5-5.1); Protein, Total 6.4 g/dL (6.0-8.3); Sodium 130 mmol/L (136-145)
[2021-01-20 12:39] LABS: Band 58 % (5-11); Dohle Bodies MODERATE; Large Platelets SLIGHT; Lymphocytes 5 % (21-51); MDiff Complete? YES; Metamyelocyte 3 % (0-0); Neutrophil 33 % (42-75); Platelet Morphology Comment Appears Decreased; RBC Morphology Normal; Reactive Lymphocytes 1 % (0-10); Reflex for Review?? YES; Toxic Granulation SLIGHT; Vacuoles MODERATE
[2021-01-20] MEDS ORDERED: Vancomycin 1 GM/200 ML BAG ONE (12:47)
[2021-01-20] MEDS ORDERED: Ketorolac Tromethamine 30 MG/ML VIAL ONE (12:57)
[2021-01-20 14:54] LABS: Lactic Acid 2.1 mmol/L (0.5-2.2)
[2021-01-20] MEDS ORDERED: Dextrose 5% in Water 1,000 ML IV PRN (14:54)
[2021-01-20 15:03] LABS: Troponin I 0.033 ng/mL (< 0.028)
[2021-01-20] MEDS ORDERED: Furosemide 100 MG/10 ML VIAL ONE (15:40)
[2021-01-20 16:11] LABS: SARS-CoV-2 NAA Rapid Test Not Detected (NotDetected)
[2021-01-20] MEDS: Apixaban 5 MG TAB PO SCH (22:20)
[2021-01-20] MEDS: Vancomycin 1.5 GRAM/300 ML BAG 1.5 GM in Premix Bag 1 BAG IVPB SCH (22:20)
[2021-01-20] MEDS ORDERED: Cefepime 2 GM in Sodium Chloride 0.9% 100 ML IVPB SCH (23:00)
[2021-01-21] MEDS ORDERED: Cefepime 2 GM in Sodium Chloride 0.9% 100 ML IVPB SCH
[2021-01-21] MEDS: Dextrose 50% Abboject 50 ML SYRINGE SLOW IVP PRN ×2 (02:50→16:46)
[2021-01-21] MEDS: Cefepime 2 GM in Sodium Chloride 0.9% 100 ML IVPB SCH ×2 (02:56→16:25)
[2021-01-21 03:51] LABS: Anion Gap 20 mmol/L (10-20); BUN (Urea Nitrogen) 65 mg/dL (8.4-25.7); Band 33 % (5-11); Calc. Creatinine Clearance 96 mL/min (70-130); Calcium 8.3 mg/dL (7.8-10.44); Carbon Dioxide 20 mmol/L (22-29); Chloride 95 mmol/L (98-107); Glucose 95 mg/dL (70-105); Hemoglobin 12.5 g/dL (14.0-18.0); Lymphocytes 2 % (21-51); MDiff Complete? YES; Mean Corpuscular HGB CONC 33.4 g/dL (32.0-36.0); Mean Corpuscular Hemoglobin 32.4 pg (27.0-31.0); Mean Corpuscular Volume 96.9 fL (78.0-98.0); Mean Platelet Volume 10.7 fL (7.4-10.4); Monocytes 2 % (0-10); Neutrophil 63 % (42-75); Platelet Count 69 thou/uL (130-400); Platelet Morphology Comment Appears Decreased; Potassium 3.9 mmol/L (3.5-5.1); RBC Distribution Width 13.9 % (11.5-14.5); Red Blood Cell (RBC) Count 3.85 mill/uL (4.70-6.10); Sodium 131 mmol/L (136-145); White Blood Cell (WBC) Count 14.3 thou/uL (4.8-10.8)
[2021-01-21] MEDS: Apixaban 5 MG TAB PO SCH ×2 (08:27→20:54)
[2021-01-21 11:11] LABS: Actual Bicarbonate (HCO3a) 23.9 mEq/L (22-28); Base Excess (BEa) 0.6 mEq/L (-2.0 to +3.0); CO2 Tension 34.2 mmHg (35.0-45.0); Calcium, Ionized (arterial) 1.08 mmol/L (1.12-1.30); Carboxyhemoglobin (COHb) 0.6 gm% (0.0-3.0); Hemoglobin (Hb) 12.1 g/dL (14.0-18.0); O2 Tension (PaO2), arterial 80.9 mmHg (80.0-100.0); Potassium - ABG Lab 3.87 mmol/L (3.70-5.30); pH, Arterial 7.46 (7.35-7.45)
[2021-01-21 11:12] LABS: Puncture Site RRA
[2021-01-21] MEDS: Vancomycin 1.5 GRAM/300 ML BAG 1.5 GM in Premix Bag 1 BAG IVPB SCH ×3 (12:22→22:25)
[2021-01-21] MEDS: Carvedilol 3.125 MG TAB PO SCH (16:25)
[2021-01-21] MEDS ORDERED: cefTRIAXone\\ROCEPHIN 2 GM in Sodium Chloride 0.9% 100 ML IVPB SCH (18:00)
[2021-01-21] MEDS ORDERED: Furosemide 40 MG/4 ML VIAL SLOW IVP SCH (18:00)
[2021-01-21] MEDS ORDERED: Sodium Chloride 0.9% 1,000 ML IV SCH (18:45)
[2021-01-21] MEDS: Sodium Chloride 0.45% 1,000 ML IV SCH (20:53)
[2021-01-22] MEDS: Sodium Chloride 0.45% 1,000 ML IV SCH ×2 (02:02→09:11)
[2021-01-22] MEDS: traMADol HCl 50 MG TAB PO PRN ×2 (02:02→21:15)
[2021-01-22] MEDS: Benzonatate 100 MG CAP PO PRN ×2 (02:27→21:15)
[2021-01-22 06:19] LABS: Hemoglobin 11.3 g/dL (14.0-18.0); Mean Corpuscular HGB CONC 31.4 g/dL (32.0-36.0); Mean Corpuscular Volume 95.4 fL (78.0-98.0); Platelet Count 63 thou/uL (130-400); RBC Distribution Width 14.4 % (11.5-14.5); Red Blood Cell (RBC) Count 3.76 mill/uL (4.70-6.10); White Blood Cell (WBC) Count 20.7 thou/uL (4.8-10.8)
[2021-01-22 06:33] LABS: Band 10 % (5-11); Hypochromia SLIGHT = 6-15 cells (100X) (0-5/hpf); Lymphocytes 6 % (21-51); MDiff Complete? YES; Mean Platelet Volume 13.7 fL (7.4-10.4); Monocytes 19 % (0-10); Neutrophil 65 % (42-75); Platelet Morphology Comment Appears Adequate
[2021-01-22 06:35] LABS: Anion Gap 19 mmol/L (10-20); BUN (Urea Nitrogen) 81 mg/dL (8.4-25.7); Calc. Creatinine Clearance 72 mL/min (70-130); Calcium 7.8 mg/dL (7.8-10.44); Carbon Dioxide 18 mmol/L (22-29); Chloride 95 mmol/L (98-107); Glucose 77 mg/dL (70-105); Potassium 4.6 mmol/L (3.5-5.1); Sodium 127 mmol/L (136-145)
[2021-01-22] MEDS: Albumin 25% 25 GM/100 ML BOT IVPB SCH ×3 (07:00→17:16)
[2021-01-22] MEDS ORDERED: Amiodarone 200 MG TAB PO SCH (09:00)
[2021-01-22] MEDS: Carvedilol 3.125 MG TAB PO SCH ×2 (09:10→16:52)
[2021-01-22] MEDS: Apixaban 5 MG TAB PO SCH (09:11)
[2021-01-22] MEDS: Apixaban 2.5 MG TAB PO SCH (21:14)
[2021-01-22] MEDS: CEFAZOLIN 2 GM in Premix Bag 1 BAG IVPB SCH (21:14)
[2021-01-23] MEDS: Albumin 25% 25 GM/100 ML BOT IVPB SCH ×4 (00:01→20:36)
[2021-01-23] MEDS ORDERED: Vancomycin 1.5 GRAM/300 ML BAG 1.5 GM in Premix Bag 1 BAG IVPB SCH (04:00)
[2021-01-23 05:48] LABS: Hemoglobin 10.2 g/dL (14.0-18.0); Mean Corpuscular HGB CONC 32.1 g/dL (32.0-36.0); Mean Corpuscular Hemoglobin 30.9 pg (27.0-31.0); Mean Corpuscular Volume 96.1 fL (78.0-98.0); Platelet Count 55 thou/uL (130-400); RBC Distribution Width 14.5 % (11.5-14.5); Red Blood Cell (RBC) Count 3.31 mill/uL (4.70-6.10); White Blood Cell (WBC) Count 20.7 thou/uL (4.8-10.8)
[2021-01-23 06:01] LABS: Anion Gap 21 mmol/L (10-20); BUN (Urea Nitrogen) 89 mg/dL (8.4-25.7); Calc. Creatinine Clearance 81 mL/min (70-130); Calcium 8.5 mg/dL (7.8-10.44); Carbon Dioxide 20 mmol/L (22-29); Chloride 95 mmol/L (98-107); Glucose 105 mg/dL (70-105); Potassium 3.8 mmol/L (3.5-5.1); Sodium 132 mmol/L (136-145)
[2021-01-23 06:14] LABS: Band 42 % (5-11); Lymphocytes 6 % (21-51); MDiff Complete? YES; Monocytes 3 % (0-10); Myelocyte 1 % (0-0); Neutrophil 48 % (42-75); Platelet Morphology Comment Appears Decreased
[2021-01-23] MEDS: Dextrose 5 %-0.45 % NaCl 1,000 ML IV SCH ×2 (06:50→16:50)
[2021-01-23] MEDS: CEFAZOLIN 2 GM in Premix Bag 1 BAG IVPB SCH (07:47)
[2021-01-23] MEDS: Carvedilol 3.125 MG TAB PO SCH ×2 (07:47→15:54)
[2021-01-23] MEDS: Apixaban 2.5 MG TAB PO SCH ×2 (07:47→20:37)
[2021-01-23 08:50] LABS: Actual Bicarbonate (HCO3a) 23.2 mEq/L (22-28); Base Excess (BEa) -0.8 mEq/L (-2.0 to +3.0); CO2 Tension 36.2 mmHg (35.0-45.0); Carboxyhemoglobin (COHb) 0.7 gm% (0.0-3.0); Hemoglobin (Hb) 12.3 g/dL (14.0-18.0); O2 Tension (PaO2), arterial 73.3 mmHg (80.0-100.0); pH, Arterial 7.43 (7.35-7.45)
[2021-01-23 08:52] LABS: Puncture Site LRA
[2021-01-23] MEDS: MEROPENEM 1 GM/50 ML 1 GM in Premix Bag 1 BAG IVPB SCH (21:54)
[2021-01-24] MEDS: Albumin 25% 25 GM/100 ML BOT IVPB SCH (03:05)
[2021-01-24 06:13] LABS: Anion Gap 21 mmol/L (10-20); BUN (Urea Nitrogen) 90 mg/dL (8.4-25.7); Calc. Creatinine Clearance 102 mL/min (70-130); Calcium 8.7 mg/dL (7.8-10.44); Carbon Dioxide 19 mmol/L (22-29); Chloride 98 mmol/L (98-107); Glucose 191 mg/dL (70-105); Potassium 3.5 mmol/L (3.5-5.1); Sodium 134 mmol/L (136-145)
[2021-01-24 06:41] LABS: Band 30 % (5-11); Hemoglobin 10.5 g/dL (14.0-18.0); Lymphocytes 9 % (21-51); MDiff Complete? YES; Mean Corpuscular HGB CONC 32.9 g/dL (32.0-36.0); Mean Corpuscular Hemoglobin 31.7 pg (27.0-31.0); Mean Corpuscular Volume 96.3 fL (78.0-98.0); Mean Platelet Volume 11.3 fL (7.4-10.4); Monocytes 3 % (0-10); Myelocyte 1 % (0-0); Neutrophil 57 % (42-75); Platelet Count 65 thou/uL (130-400); Platelet Morphology Comment Appears Decreased; RBC Distribution Width 14.7 % (11.5-14.5); Red Blood Cell (RBC) Count 3.31 mill/uL (4.70-6.10); White Blood Cell (WBC) Count 17.4 thou/uL (4.8-10.8)
[2021-01-24] MEDS: HumaLOG 300 UNITS/3 ML VIAL SC PRN ×4 (06:54→20:55)
[2021-01-24] MEDS: Morphine 2 MG/ML VIAL SLOW IVP PRN ×3 (06:55→17:07)
[2021-01-24] MEDS: Apixaban 2.5 MG TAB PO SCH ×2 (08:30→20:54)
[2021-01-24] MEDS: MEROPENEM 1 GM/50 ML 1 GM in Premix Bag 1 BAG IVPB SCH ×2 (08:30→20:54)
[2021-01-24] MEDS: Carvedilol 3.125 MG TAB PO SCH ×2 (08:30→16:02)
[2021-01-24] MEDS: Dextrose 5 %-0.45 % NaCl 1,000 ML IV SCH ×2 (09:03→16:09)
[2021-01-24] MEDS: traMADol HCl 50 MG TAB PO PRN (16:01)
[2021-01-25] MEDS: Dextrose 5 %-0.45 % NaCl 1,000 ML IV SCH ×2 (06:06→18:03)
[2021-01-25] MEDS: HumaLOG 300 UNITS/3 ML VIAL SC PRN (06:09)
[2021-01-25 06:34] LABS: Hemoglobin 10.3 g/dL (14.0-18.0); Mean Corpuscular HGB CONC 33.2 g/dL (32.0-36.0); Mean Corpuscular Hemoglobin 32.1 pg (27.0-31.0); Mean Corpuscular Volume 96.7 fL (78.0-98.0); Mean Platelet Volume 11.3 fL (7.4-10.4); Platelet Count 103 thou/uL (130-400); RBC Distribution Width 14.9 % (11.5-14.5); White Blood Cell (WBC) Count 20.1 thou/uL (4.8-10.8)
[2021-01-25 06:47] LABS: Anion Gap 17 mmol/L (10-20); BUN (Urea Nitrogen) 82 mg/dL (8.4-25.7); Calc. Creatinine Clearance 119 mL/min (70-130); Calcium 8.2 mg/dL (7.8-10.44); Carbon Dioxide 19 mmol/L (22-29); Chloride 101 mmol/L (98-107); Glucose 205 mg/dL (70-105); Potassium 3.9 mmol/L (3.5-5.1); Sodium 133 mmol/L (136-145)
[2021-01-25 06:54] LABS: Band 20 % (5-11); Eosinophils 1 % (0-10); Lymphocytes 4 % (21-51); MDiff Complete? YES; Metamyelocyte 3 % (0-0); Monocytes 7 % (0-10); Myelocyte 1 % (0-0); Neutrophil 64 % (42-75); Platelet Morphology Comment Appears Decreased; Target Cells SLIGHT = 2-5 cells (100X) (0-1/hpf)
[2021-01-25] MEDS: Apixaban 2.5 MG TAB PO SCH ×2 (09:04→21:30)
[2021-01-25] MEDS: Carvedilol 3.125 MG TAB PO SCH ×2 (09:04→18:04)
[2021-01-25] MEDS: MEROPENEM 1 GM/50 ML 1 GM in Premix Bag 1 BAG IVPB SCH ×2 (09:45→18:06)
[2021-01-25] MEDS: traMADol HCl 50 MG TAB PO PRN (18:06)
[2021-01-26] MEDS: Dextrose 5 %-0.45 % NaCl 1,000 ML IV SCH (01:06)
[2021-01-26] MEDS: MEROPENEM 1 GM/50 ML 1 GM in Premix Bag 1 BAG IVPB SCH ×3 (01:06→17:19)
[2021-01-26] MEDS: HumaLOG 300 UNITS/3 ML VIAL SC PRN ×3 (06:31→17:23)
[2021-01-26 07:14] LABS: Anion Gap 16 mmol/L (10-20); BUN (Urea Nitrogen) 71 mg/dL (8.4-25.7); Calc. Creatinine Clearance 187 mL/min (70-130); Calcium 8.2 mg/dL (7.8-10.44); Carbon Dioxide 21 mmol/L (22-29); Chloride 101 mmol/L (98-107); Glucose 253 mg/dL (70-105); Potassium 4.9 mmol/L (3.5-5.1); Sodium 133 mmol/L (136-145)
[2021-01-26] MEDS: Insulin Glargine 5 UNITS in Pre-Filled Syringe 1 EACH SC SCH ×2 (08:58→21:08)
[2021-01-26] MEDS: Apixaban 2.5 MG TAB PO SCH ×2 (08:58→21:05)
[2021-01-26] MEDS: Sodium Chloride 0.45% 1,000 ML IV SCH ×2 (08:58→21:09)
[2021-01-26] MEDS: Carvedilol 3.125 MG TAB PO SCH ×2 (08:58→17:19)
[2021-01-26 08:59] LABS: Band 28 % (5-11); Hemoglobin 10.5 g/dL (14.0-18.0); Lymphocytes 9 % (21-51); MDiff Complete? YES; Mean Corpuscular HGB CONC 32.4 g/dL (32.0-36.0); Mean Corpuscular Hemoglobin 31.2 pg (27.0-31.0); Mean Corpuscular Volume 96.2 fL (78.0-98.0); Mean Platelet Volume 10.1 fL (7.4-10.4); Metamyelocyte 1 % (0-0); Monocytes 9 % (0-10); Neutrophil 53 % (42-75); Platelet Count 157 thou/uL (130-400); RBC Distribution Width 15.2 % (11.5-14.5); Red Blood Cell (RBC) Count 3.36 mill/uL (4.70-6.10)
[2021-01-26] MEDS: traMADol HCl 50 MG TAB PO PRN (21:05)
[2021-01-27] MEDS: MEROPENEM 1 GM/50 ML 1 GM in Premix Bag 1 BAG IVPB SCH ×3 (02:47→17:24)
[2021-01-27] MEDS: HumaLOG 300 UNITS/3 ML VIAL SC PRN ×4 (05:51→21:00)
[2021-01-27 06:18] LABS: Hemoglobin 10.3 g/dL (14.0-18.0); Mean Corpuscular HGB CONC 32.9 g/dL (32.0-36.0); Mean Corpuscular Hemoglobin 31.6 pg (27.0-31.0); Mean Corpuscular Volume 96.3 fL (78.0-98.0); Mean Platelet Volume 10.1 fL (7.4-10.4); Platelet Count 207 thou/uL (130-400); Red Blood Cell (RBC) Count 3.25 mill/uL (4.70-6.10); White Blood Cell (WBC) Count 21.4 thou/uL (4.8-10.8)
[2021-01-27 06:33] LABS: Anion Gap 13 mmol/L (10-20); BUN (Urea Nitrogen) 52 mg/dL (8.4-25.7); Calc. Creatinine Clearance 252 mL/min (70-130); Calcium 8.5 mg/dL (7.8-10.44); Carbon Dioxide 24 mmol/L (22-29); Chloride 101 mmol/L (98-107); Glucose 260 mg/dL (70-105); Potassium 4.2 mmol/L (3.5-5.1); Sodium 134 mmol/L (136-145)
[2021-01-27 06:42] LABS: Band 17 % (5-11); Lymphocytes 17 % (21-51); MDiff Complete? YES; Metamyelocyte 1 % (0-0); Monocytes 5 % (0-10); Myelocyte 6 % (0-0); Neutrophil 53 % (42-75); Target Cells SLIGHT = 2-5 cells (100X) (0-1/hpf)
[2021-01-27] MEDS: Carvedilol 3.125 MG TAB PO SCH (08:04)
[2021-01-27] MEDS: Insulin Glargine 5 UNITS in Pre-Filled Syringe 1 EACH SC SCH (09:37)
[2021-01-27] MEDS: Apixaban 2.5 MG TAB PO SCH ×2 (09:37→21:00)
[2021-01-27] MEDS: Sodium Chloride 0.45% 1,000 ML IV SCH (09:39)
[2021-01-27] MEDS: traMADol HCl 50 MG TAB PO PRN ×2 (11:40→17:23)
[2021-01-27] MEDS: Furosemide 40 MG/4 ML VIAL SLOW IVP SCH (13:37)
[2021-01-27] MEDS: Carvedilol 6.25 MG TAB PO SCH (16:30)
[2021-01-27] MEDS: Insulin Glargine 15 UNITS in Pre-Filled Syringe SC SCH (21:01)
[2021-01-28] MEDS: MEROPENEM 1 GM/50 ML 1 GM in Premix Bag 1 BAG IVPB SCH ×4 (01:20→20:37)
[2021-01-28] MEDS: Furosemide 40 MG/4 ML VIAL SLOW IVP SCH ×2 (06:40→16:13)
[2021-01-28 07:50] LABS: Anion Gap 11 mmol/L (10-20); BUN (Urea Nitrogen) 41 mg/dL (8.4-25.7); Calc. Creatinine Clearance 248 mL/min (70-130); Calcium 8.3 mg/dL (7.8-10.44); Carbon Dioxide 28 mmol/L (22-29); Chloride 101 mmol/L (98-107); Glucose 171 mg/dL (70-105); Potassium 4.4 mmol/L (3.5-5.1); Sodium 136 mmol/L (136-145)
[2021-01-28 08:15] LABS: Band 9 % (5-11); Eosinophils 1 % (0-10); Hemoglobin 9.9 g/dL (14.0-18.0); Lymphocytes 11 % (21-51); MDiff Complete? YES; Mean Corpuscular Hemoglobin 31.8 pg (27.0-31.0); Mean Corpuscular Volume 96.3 fL (78.0-98.0); Mean Platelet Volume 8.7 fL (7.4-10.4); Metamyelocyte 2 % (0-0); Monocytes 4 % (0-10); Myelocyte 4 % (0-0); Neutrophil 69 % (42-75); Nucleated RBC 1 % (0); Platelet Count 253 thou/uL (130-400); Platelet Morphology Comment Appears Adequate; Polychromasia SLIGHT = 2-3 cells (100X) (0-2/hpf); RBC Distribution Width 14.8 % (11.5-14.5); Red Blood Cell (RBC) Count 3.13 mill/uL (4.70-6.10); White Blood Cell (WBC) Count 20.1 thou/uL (4.8-10.8)
[2021-01-28] MEDS: Carvedilol 6.25 MG TAB PO SCH ×2 (08:44→18:07)
[2021-01-28] MEDS: Apixaban 2.5 MG TAB PO SCH ×2 (08:44→20:38)
[2021-01-28] MEDS: Insulin Glargine 15 UNITS in Pre-Filled Syringe SC SCH ×2 (09:05→21:37)
[2021-01-28] MEDS: traMADol HCl 50 MG TAB PO PRN (13:10)
[2021-01-28] MEDS ORDERED: Lidocaine 1% (PF) 30 ML VIAL SC SCH (16:00)
[2021-01-28] MEDS: HumaLOG 300 UNITS/3 ML VIAL SC PRN (19:15)
[2021-01-29] MEDS: Morphine 2 MG/ML VIAL SLOW IVP PRN (03:39)
[2021-01-29] MEDS: MEROPENEM 1 GM/50 ML 1 GM in Premix Bag 1 BAG IVPB SCH ×3 (04:02→20:14)
[2021-01-29] MEDS: Furosemide 40 MG/4 ML VIAL SLOW IVP SCH ×2 (05:12→12:30)
[2021-01-29] MEDS: HumaLOG 300 UNITS/3 ML VIAL SC PRN (05:13)
[2021-01-29 07:11] LABS: Hemoglobin 9.7 g/dL (14.0-18.0); Mean Corpuscular HGB CONC 32.3 g/dL (32.0-36.0); Mean Corpuscular Hemoglobin 31.4 pg (27.0-31.0); Mean Corpuscular Volume 97.2 fL (78.0-98.0); Mean Platelet Volume 8.7 fL (7.4-10.4); Platelet Count 311 thou/uL (130-400); RBC Distribution Width 14.6 % (11.5-14.5); White Blood Cell (WBC) Count 17.7 thou/uL (4.8-10.8)
[2021-01-29 07:19] LABS: ALT (SGPT) 21 U/L (8-55); AST (SGOT) 30 U/L (5-34); Albumin 2.1 g/dL (3.5-5.0); Alkaline Phosphatase 192 U/L (40-110); Anion Gap 12 mmol/L (10-20); BUN (Urea Nitrogen) 35 mg/dL (8.4-25.7); Bilirubin, Total 1.6 mg/dL (0.2-1.2); Calc. Creatinine Clearance 241 mL/min (70-130); Calcium 8.2 mg/dL (7.8-10.44); Carbon Dioxide 27 mmol/L (22-29); Chloride 99 mmol/L (98-107); Globulin 5.2 g/dL (2.4-3.5); Glucose 187 mg/dL (70-105); Potassium 4.9 mmol/L (3.5-5.1); Protein, Total 7.3 g/dL (6.0-8.3); Sodium 133 mmol/L (136-145)
[2021-01-29] MEDS: Carvedilol 6.25 MG TAB PO SCH ×2 (07:58→15:35)
[2021-01-29] MEDS: Apixaban 2.5 MG TAB PO SCH ×2 (07:59→20:15)
[2021-01-29 08:01] LABS: Band 10 % (5-11); Lymphocytes 9 % (21-51); MDiff Complete? YES; Monocytes 5 % (0-10); Neutrophil 76 % (42-75); Platelet Morphology Comment Appears Adequate; Polychromasia SLIGHT = 2-3 cells (100X) (0-2/hpf)
[2021-01-29] MEDS: Insulin Glargine 15 UNITS in Pre-Filled Syringe SC SCH (09:37)
[2021-01-29] MEDS ORDERED: Polyethylene Glycol 3350 17 GM Packet PO PRN (12:56)
[2021-01-29] MEDS: Senokot S 8.6-50 MG TAB PO SCH (20:15)
[2021-01-29] MEDS: Lantus 1000 UNITS/10 ML VIAL SC SCH (21:10)
[2021-01-30] MEDS: Morphine 2 MG/ML VIAL SLOW IVP PRN (02:46)
[2021-01-30] MEDS: Furosemide 40 MG/4 ML VIAL SLOW IVP SCH ×2 (05:01→09:34)
[2021-01-30] MEDS: MEROPENEM 1 GM/50 ML 1 GM in Premix Bag 1 BAG IVPB SCH ×3 (05:01→20:22)
[2021-01-30 06:33] LABS: #Lymphocytes 1.7 thou/uL (1.20-3.40); #Neutrophils 15.4 thou/uL (1.40-6.50); %Basophils 0.2 % (0.0-1.0); %Eosinophils 0.2 % (0.0-10.0); %Lymphocytes 9.1 % (21.0-51.0); %Monocytes 5.6 % (0.0-10.0); Hemoglobin 10.2 g/dL (14.0-18.0); Mean Corpuscular HGB CONC 33.1 g/dL (32.0-36.0); Mean Corpuscular Hemoglobin 32.1 pg (27.0-31.0); Mean Corpuscular Volume 97.1 fL (78.0-98.0); Mean Platelet Volume 8.3 fL (7.4-10.4); Platelet Count 387 thou/uL (130-400); RBC Distribution Width 14.3 % (11.5-14.5); Red Blood Cell (RBC) Count 3.19 mill/uL (4.70-6.10); White Blood Cell (WBC) Count 18.2 thou/uL (4.8-10.8)
[2021-01-30 06:44] LABS: Anion Gap 11 mmol/L (10-20); BUN (Urea Nitrogen) 31 mg/dL (8.4-25.7); Calc. Creatinine Clearance 245 mL/min (70-130); Calcium 8.3 mg/dL (7.8-10.44); Carbon Dioxide 29 mmol/L (22-29); Chloride 97 mmol/L (98-107); Glucose 128 mg/dL (70-105); Potassium 5.5 mmol/L (3.5-5.1); Sodium 131 mmol/L (136-145)
[2021-01-30] MEDS: Lantus 1000 UNITS/10 ML VIAL SC SCH ×2 (09:33→20:26)
[2021-01-30] MEDS: Apixaban 2.5 MG TAB PO SCH ×2 (09:34→20:21)
[2021-01-30] MEDS: Carvedilol 6.25 MG TAB PO SCH ×2 (09:34→16:30)
[2021-01-30] MEDS: Senokot S 8.6-50 MG TAB PO SCH ×2 (09:34→20:22)
[2021-01-30] MEDS: Aluminum & Magnesium Hydroxide 60 ML, diphenhydrAMINE 150 MG, Lidocaine 2% Viscous Solu... SSW SCH ×3 (11:55→20:23)
[2021-01-30] MEDS: Calcium Carbonate 500 MG ChewTAB PO PRN (15:28)
[2021-01-30] MEDS: traMADol HCl 50 MG TAB PO PRN (20:21)
[2021-01-31] MEDS: MEROPENEM 1 GM/50 ML 1 GM in Premix Bag 1 BAG IVPB SCH ×3 (04:12→21:00)
[2021-01-31 07:35] LABS: #Basophils 0.1 thou/uL (0.0-0.2); #Eosinphils 0.1 thou/uL (0.0-0.7); #Lymphocytes 1.5 thou/uL (1.20-3.40); %Basophils 0.4 % (0.0-1.0); %Eosinophils 0.3 % (0.0-10.0); %Lymphocytes 9.9 % (21.0-51.0); %Monocytes 6.1 % (0.0-10.0); %Neutrophils 83.4 % (42.0-75.0); Hemoglobin 10.1 g/dL (14.0-18.0); Mean Corpuscular Hemoglobin 31.9 pg (27.0-31.0); Mean Corpuscular Volume 96.7 fL (78.0-98.0); Mean Platelet Volume 7.7 fL (7.4-10.4); Platelet Count 452 thou/uL (130-400); RBC Distribution Width 14.1 % (11.5-14.5); Red Blood Cell (RBC) Count 3.18 mill/uL (4.70-6.10); White Blood Cell (WBC) Count 15.6 thou/uL (4.8-10.8)
[2021-01-31 07:50] LABS: Anion Gap 11 mmol/L (10-20); BUN (Urea Nitrogen) 26 mg/dL (8.4-25.7); Calc. Creatinine Clearance 245 mL/min (70-130); Calcium 8.3 mg/dL (7.8-10.44); Carbon Dioxide 25 mmol/L (22-29); Chloride 94 mmol/L (98-107); Glucose 115 mg/dL (70-105); Potassium 5.4 mmol/L (3.5-5.1); Sodium 125 mmol/L (136-145)
[2021-01-31] MEDS: Carvedilol 6.25 MG TAB PO SCH ×2 (08:53→16:33)
[2021-01-31] MEDS: Aluminum & Magnesium Hydroxide 60 ML, diphenhydrAMINE 150 MG, Lidocaine 2% Viscous Solu... SSW SCH ×4 (08:53→21:01)
[2021-01-31] MEDS: Apixaban 2.5 MG TAB PO SCH ×2 (08:53→20:59)
[2021-01-31] MEDS: Senokot S 8.6-50 MG TAB PO SCH ×2 (08:53→21:00)
[2021-01-31] MEDS: Furosemide 40 MG/4 ML VIAL SLOW IVP SCH (08:53)
[2021-01-31] MEDS: Lantus 1000 UNITS/10 ML VIAL SC SCH ×2 (08:54→21:00)
[2021-01-31] MEDS: HumaLOG 300 UNITS/3 ML VIAL SC PRN ×2 (12:09→16:32)
[2021-02-01] MEDS: MEROPENEM 1 GM/50 ML 1 GM in Premix Bag 1 BAG IVPB SCH ×3 (04:25→19:54)
[2021-02-01 06:03] LABS: #Basophils 0.1 thou/uL (0.0-0.2); #Lymphocytes 1.5 thou/uL (1.20-3.40); #Neutrophils 10.8 thou/uL (1.40-6.50); %Basophils 0.4 % (0.0-1.0); %Eosinophils 0.4 % (0.0-10.0); %Lymphocytes 11.4 % (21.0-51.0); %Monocytes 7.7 % (0.0-10.0); %Neutrophils 80.1 % (42.0-75.0); Hemoglobin 10.1 g/dL (14.0-18.0); Mean Corpuscular HGB CONC 33.4 g/dL (32.0-36.0); Mean Corpuscular Hemoglobin 32.2 pg (27.0-31.0); Mean Corpuscular Volume 96.4 fL (78.0-98.0); Mean Platelet Volume 7.7 fL (7.4-10.4); Platelet Count 493 thou/uL (130-400); RBC Distribution Width 14.1 % (11.5-14.5); Red Blood Cell (RBC) Count 3.15 mill/uL (4.70-6.10); White Blood Cell (WBC) Count 13.5 thou/uL (4.8-10.8)
[2021-02-01 06:27] LABS: Anion Gap 13 mmol/L (10-20); BUN (Urea Nitrogen) 24 mg/dL (8.4-25.7); Calc. Creatinine Clearance 235 mL/min (70-130); Calcium 8.2 mg/dL (7.8-10.44); Carbon Dioxide 24 mmol/L (22-29); Chloride 93 mmol/L (98-107); Glucose 152 mg/dL (70-105); Potassium 5.3 mmol/L (3.5-5.1); Sodium 125 mmol/L (136-145)
[2021-02-01] MEDS: Morphine 2 MG/ML VIAL SLOW IVP PRN (06:49)
[2021-02-01] MEDS: Senokot S 8.6-50 MG TAB PO SCH ×2 (09:29→19:54)
[2021-02-01] MEDS: Carvedilol 6.25 MG TAB PO SCH ×2 (09:29→16:29)
[2021-02-01] MEDS: Apixaban 2.5 MG TAB PO SCH ×2 (09:29→19:52)
[2021-02-01] MEDS: Aluminum & Magnesium Hydroxide 60 ML, diphenhydrAMINE 150 MG, Lidocaine 2% Viscous Solu... SSW SCH ×4 (09:29→19:55)
[2021-02-01] MEDS: Lantus 1000 UNITS/10 ML VIAL SC SCH ×2 (09:30→19:54)
[2021-02-01] MEDS: HumaLOG 300 UNITS/3 ML VIAL SC PRN ×2 (12:13→16:29)
[2021-02-02] MEDS: MEROPENEM 1 GM/50 ML 1 GM in Premix Bag 1 BAG IVPB SCH ×3 (04:39→20:33)
[2021-02-02] MEDS: HumaLOG 300 UNITS/3 ML VIAL SC PRN (04:42)
[2021-02-02 06:11] LABS: #Basophils 0.1 thou/uL (0.0-0.2); #Eosinphils 0.1 thou/uL (0.0-0.7); #Lymphocytes 1.6 thou/uL (1.20-3.40); #Monocytes 1.1 thou/uL (0.11-0.59); #Neutrophils 10.3 thou/uL (1.40-6.50); %Basophils 0.7 % (0.0-1.0); %Eosinophils 0.4 % (0.0-10.0); %Lymphocytes 12.1 % (21.0-51.0); %Monocytes 8.6 % (0.0-10.0); %Neutrophils 78.2 % (42.0-75.0); Hemoglobin 9.8 g/dL (14.0-18.0); Mean Corpuscular HGB CONC 32.4 g/dL (32.0-36.0); Mean Corpuscular Volume 95.8 fL (78.0-98.0); Mean Platelet Volume 7.2 fL (7.4-10.4); Platelet Count 534 thou/uL (130-400); RBC Distribution Width 13.8 % (11.5-14.5); Red Blood Cell (RBC) Count 3.16 mill/uL (4.70-6.10); White Blood Cell (WBC) Count 13.2 thou/uL (4.8-10.8)
[2021-02-02 06:36] LABS: Anion Gap 12 mmol/L (10-20); BUN (Urea Nitrogen) 24 mg/dL (8.4-25.7); Calc. Creatinine Clearance 235 mL/min (70-130); Calcium 8.1 mg/dL (7.8-10.44); Carbon Dioxide 25 mmol/L (22-29); Chloride 90 mmol/L (98-107); Glucose 158 mg/dL (70-105); Potassium 4.8 mmol/L (3.5-5.1); Sodium 122 mmol/L (136-145)
[2021-02-02] MEDS: Carvedilol 6.25 MG TAB PO SCH ×2 (09:02→16:14)
[2021-02-02] MEDS: Senokot S 8.6-50 MG TAB PO SCH ×2 (09:02→20:40)
[2021-02-02] MEDS: Aluminum & Magnesium Hydroxide 60 ML, diphenhydrAMINE 150 MG, Lidocaine 2% Viscous Solu... SSW SCH ×4 (09:03→20:33)
[2021-02-02] MEDS: Apixaban 2.5 MG TAB PO SCH ×2 (09:03→20:32)
[2021-02-02] MEDS: Lantus 1000 UNITS/10 ML VIAL SC SCH ×2 (11:30→20:33)
[2021-02-02 12:03] LABS: Bilirubin Negative (Negative); Blood, Urine Small (Negative); Clarity Hazy (Clear); Glucose, Urine (Dipstick) 100 mg/dL (Negative); Ketone, Urine Negative (Negative); Leukocyte Negative (Negative); Nitrite Negative (Negative); Protein, Urine (Dipstick) 30 mg/dL (Neg-Trace); Urobilinogen > or = 8.0 mg/dL (Less than 2)
[2021-02-02 12:09] LABS: Bacteria/HPF None Seen HPF (None Seen); RBC/HPF 0-3 HPF (0-3); Squamous Epithelial None Seen HPF (0-3); WBC/HPF None Seen HPF (0-3)
[2021-02-02 12:33] LABS: Potassium, Urine 38.1 mmol/L
[2021-02-02] MEDS: Benzonatate 100 MG CAP PO PRN (20:32)
[2021-02-03] MEDS: MEROPENEM 1 GM/50 ML 1 GM in Premix Bag 1 BAG IVPB SCH ×3 (04:36→20:32)
[2021-02-03 06:12] LABS: Anion Gap 9 mmol/L (10-20); BUN (Urea Nitrogen) 21 mg/dL (8.4-25.7); Calc. Creatinine Clearance 262 mL/min (70-130); Calcium 8.2 mg/dL (7.8-10.44); Carbon Dioxide 26 mmol/L (22-29); Chloride 92 mmol/L (98-107); Glucose 133 mg/dL (70-105); Potassium 4.7 mmol/L (3.5-5.1); Sodium 122 mmol/L (136-145)
[2021-02-03] MEDS: Senokot S 8.6-50 MG TAB PO SCH ×2 (08:45→20:30)
[2021-02-03] MEDS: Carvedilol 6.25 MG TAB PO SCH ×2 (08:45→18:07)
[2021-02-03] MEDS: Apixaban 2.5 MG TAB PO SCH ×2 (08:45→20:31)
[2021-02-03] MEDS: Lantus 1000 UNITS/10 ML VIAL SC SCH ×2 (08:46→20:34)
[2021-02-03] MEDS: Aluminum & Magnesium Hydroxide 60 ML, diphenhydrAMINE 150 MG, Lidocaine 2% Viscous Solu... SSW SCH ×4 (10:52→21:11)
[2021-02-03] MEDS: traMADol HCl 50 MG TAB PO PRN ×2 (12:31→20:31)
[2021-02-03] MEDS: HumaLOG 300 UNITS/3 ML VIAL SC PRN ×2 (13:15→18:06)
[2021-02-04] MEDS: MEROPENEM 1 GM/50 ML 1 GM in Premix Bag 1 BAG IVPB SCH ×3 (04:05→20:58)
[2021-02-04] MEDS: traMADol HCl 50 MG TAB PO PRN (07:50)
[2021-02-04] MEDS: Senokot S 8.6-50 MG TAB PO SCH ×2 (07:50→20:58)
[2021-02-04] MEDS: Aluminum & Magnesium Hydroxide 60 ML, diphenhydrAMINE 150 MG, Lidocaine 2% Viscous Solu... SSW SCH ×4 (07:51→21:43)
[2021-02-04] MEDS: Carvedilol 6.25 MG TAB PO SCH ×2 (07:51→17:46)
[2021-02-04] MEDS: Apixaban 2.5 MG TAB PO SCH ×2 (07:51→20:57)
[2021-02-04] MEDS: Lantus 1000 UNITS/10 ML VIAL SC SCH ×2 (07:52→20:55)
[2021-02-04 09:12] LABS: Anion Gap 9 mmol/L (10-20); BUN (Urea Nitrogen) 21 mg/dL (8.4-25.7); Calc. Creatinine Clearance 248 mL/min (70-130); Calcium 8.2 mg/dL (7.8-10.44); Carbon Dioxide 26 mmol/L (22-29); Chloride 90 mmol/L (98-107); Glucose 167 mg/dL (70-105); Potassium 5.3 mmol/L (3.5-5.1); Sodium 120 mmol/L (136-145)
[2021-02-04] MEDS: TOLVAPTAN 30 MG TAB PO SCH (10:13)
[2021-02-04] MEDS: HumaLOG 300 UNITS/3 ML VIAL SC PRN (12:25)
[2021-02-05] MEDS: MEROPENEM 1 GM/50 ML 1 GM in Premix Bag 1 BAG IVPB SCH ×2 (04:35→12:49)
[2021-02-05 07:12] LABS: ALT (SGPT) 44 U/L (8-55); AST (SGOT) 41 U/L (5-34); Albumin 2.1 g/dL (3.5-5.0); Alkaline Phosphatase 127 U/L (40-110); Anion Gap 12 mmol/L (10-20); BUN (Urea Nitrogen) 20 mg/dL (8.4-25.7); Calc. Creatinine Clearance 245 mL/min (70-130); Calcium 8.2 mg/dL (7.8-10.44); Carbon Dioxide 25 mmol/L (22-29); Chloride 93 mmol/L (98-107); Globulin 6.6 g/dL (2.4-3.5); Glucose 133 mg/dL (70-105); Potassium 5.1 mmol/L (3.5-5.1); Protein, Total 8.7 g/dL (6.0-8.3); Sodium 125 mmol/L (136-145)
[2021-02-05] MEDS: Aluminum & Magnesium Hydroxide 60 ML, diphenhydrAMINE 150 MG, Lidocaine 2% Viscous Solu... SSW SCH ×5 (07:30→21:20)
[2021-02-05] MEDS: Senokot S 8.6-50 MG TAB PO SCH ×2 (08:04→20:35)
[2021-02-05] MEDS: Carvedilol 6.25 MG TAB PO SCH ×2 (08:05→17:34)
[2021-02-05] MEDS: TOLVAPTAN 30 MG TAB PO SCH (08:05)
[2021-02-05] MEDS: Lantus 1000 UNITS/10 ML VIAL SC SCH ×2 (08:06→20:44)
[2021-02-05] MEDS: Apixaban 2.5 MG TAB PO SCH ×2 (08:10→20:34)
[2021-02-05] MEDS ORDERED: Tolvaptan 15 MG TAB PO SCH (09:00)
[2021-02-05] MEDS: traMADol HCl 50 MG TAB PO PRN ×2 (11:45→19:06)
[2021-02-05] MEDS: HumaLOG 300 UNITS/3 ML VIAL SC PRN (12:54)
[2021-02-05] MEDS: Cephalexin 250 MG CAP PO SCH (17:42)
[2021-02-06] MEDS: Cephalexin 250 MG CAP PO SCH ×4 (00:53→18:23)
[2021-02-06] MEDS: traMADol HCl 50 MG TAB PO PRN (05:34)
[2021-02-06 06:54] LABS: Anion Gap 11 mmol/L (10-20); BUN (Urea Nitrogen) 19 mg/dL (8.4-25.7); Calc. Creatinine Clearance 248 mL/min (70-130); Calcium 8.2 mg/dL (7.8-10.44); Carbon Dioxide 26 mmol/L (22-29); Chloride 94 mmol/L (98-107); Glucose 113 mg/dL (70-105); Potassium 5.1 mmol/L (3.5-5.1); Sodium 126 mmol/L (136-145)
[2021-02-06] MEDS: Aluminum & Magnesium Hydroxide 60 ML, diphenhydrAMINE 150 MG, Lidocaine 2% Viscous Solu... SSW SCH ×4 (09:23→21:35)
[2021-02-06] MEDS: Senokot S 8.6-50 MG TAB PO SCH ×2 (09:25→21:35)
[2021-02-06] MEDS: Carvedilol 6.25 MG TAB PO SCH ×2 (09:25→18:22)
[2021-02-06] MEDS: Apixaban 2.5 MG TAB PO SCH ×2 (09:25→21:35)
[2021-02-06] MEDS: TOLVAPTAN 30 MG TAB PO SCH (09:29)
[2021-02-06] MEDS: Lantus 1000 UNITS/10 ML VIAL SC SCH ×2 (09:31→21:30)
[2021-02-06] MEDS: HYDROcodone/Acetaminophen 7.5/325 mg Tablet PO PRN (17:06)
[2021-02-07] MEDS: Cephalexin 250 MG CAP PO SCH ×4 (00:47→18:09)
[2021-02-07 07:36] LABS: #Basophils 0.1 thou/uL (0.0-0.2); #Eosinphils 0.1 thou/uL (0.0-0.7); #Lymphocytes 1.2 thou/uL (1.20-3.40); #Monocytes 0.7 thou/uL (0.11-0.59); #Neutrophils 6.4 thou/uL (1.40-6.50); %Basophils 0.8 % (0.0-1.0); %Lymphocytes 13.6 % (21.0-51.0); %Monocytes 8.4 % (0.0-10.0); %Neutrophils 76.1 % (42.0-75.0); Hemoglobin 10.2 g/dL (14.0-18.0); Mean Corpuscular HGB CONC 31.2 g/dL (32.0-36.0); Mean Corpuscular Hemoglobin 30.7 pg (27.0-31.0); Mean Corpuscular Volume 98.4 fL (78.0-98.0); Mean Platelet Volume 6.8 fL (7.4-10.4); Platelet Count 460 thou/uL (130-400); RBC Distribution Width 13.6 % (11.5-14.5); Red Blood Cell (RBC) Count 3.33 mill/uL (4.70-6.10); White Blood Cell (WBC) Count 8.5 thou/uL (4.8-10.8)
[2021-02-07 07:51] LABS: ALT (SGPT) 43 U/L (8-55); AST (SGOT) 37 U/L (5-34); Albumin 2.2 g/dL (3.5-5.0); Alkaline Phosphatase 117 U/L (40-110); Anion Gap 13 mmol/L (10-20); BUN (Urea Nitrogen) 18 mg/dL (8.4-25.7); Bilirubin, Total 0.9 mg/dL (0.2-1.2); Calc. Creatinine Clearance 251 mL/min (70-130); Calcium 8.5 mg/dL (7.8-10.44); Carbon Dioxide 27 mmol/L (22-29); Chloride 95 mmol/L (98-107); Globulin 6.9 g/dL (2.4-3.5); Glucose 117 mg/dL (70-105); Potassium 4.9 mmol/L (3.5-5.1); Protein, Total 9.1 g/dL (6.0-8.3); Sodium 130 mmol/L (136-145)
[2021-02-07] MEDS: Aluminum & Magnesium Hydroxide 60 ML, diphenhydrAMINE 150 MG, Lidocaine 2% Viscous Solu... SSW SCH ×4 (09:27→20:44)
[2021-02-07] MEDS: Senokot S 8.6-50 MG TAB PO SCH ×2 (09:38→20:28)
[2021-02-07] MEDS: Carvedilol 6.25 MG TAB PO SCH ×2 (09:38→18:10)
[2021-02-07] MEDS: Apixaban 2.5 MG TAB PO SCH ×2 (09:44→20:28)
[2021-02-07] MEDS: Lantus 1000 UNITS/10 ML VIAL SC SCH ×2 (09:45→20:37)
[2021-02-07] MEDS: TOLVAPTAN 30 MG TAB PO SCH (09:49)
[2021-02-07] MEDS: Lidocaine 5% Patch TD SCH (09:58)
[2021-02-07] MEDS: Transdermal Patch Removal TOP SCH (20:38)
[2021-02-07] MEDS: Calcium Carbonate 500 MG ChewTAB PO PRN (22:01)
[2021-02-08] MEDS: Cephalexin 250 MG CAP PO SCH ×4 (00:36→17:40)
[2021-02-08] MEDS: HYDROcodone/Acetaminophen 7.5/325 mg Tablet PO PRN (02:50)
[2021-02-08 07:15] LABS: ALT (SGPT) 39 U/L (8-55); AST (SGOT) 35 U/L (5-34); Albumin 2.2 g/dL (3.5-5.0); Alkaline Phosphatase 103 U/L (40-110); Anion Gap 12 mmol/L (10-20); BUN (Urea Nitrogen) 20 mg/dL (8.4-25.7); Bilirubin, Total 0.8 mg/dL (0.2-1.2); Calc. Creatinine Clearance 238 mL/min (70-130); Calcium 8.5 mg/dL (7.8-10.44); Carbon Dioxide 25 mmol/L (22-29); Chloride 95 mmol/L (98-107); Globulin 6.8 g/dL (2.4-3.5); Glucose 150 mg/dL (70-105); Sodium 127 mmol/L (136-145)
[2021-02-08] MEDS: Carvedilol 6.25 MG TAB PO SCH ×2 (08:33→17:41)
[2021-02-08] MEDS: TOLVAPTAN 30 MG TAB PO SCH (08:33)
[2021-02-08] MEDS: Senokot S 8.6-50 MG TAB PO SCH ×2 (08:33→21:07)
[2021-02-08] MEDS: Apixaban 2.5 MG TAB PO SCH ×2 (08:33→21:07)
[2021-02-08] MEDS: Lantus 1000 UNITS/10 ML VIAL SC SCH ×2 (08:34→21:09)
[2021-02-08] MEDS: Lidocaine 5% Patch TD SCH (08:34)
[2021-02-08] MEDS: Aluminum & Magnesium Hydroxide 60 ML, diphenhydrAMINE 150 MG, Lidocaine 2% Viscous Solu... SSW SCH ×4 (10:43→22:24)
[2021-02-08] MEDS: HumaLOG 300 UNITS/3 ML VIAL SC PRN (17:42)
[2021-02-08] MEDS: Transdermal Patch Removal TOP SCH (21:09)
[2021-02-09] MEDS: Cephalexin 250 MG CAP PO SCH ×4 (00:09→17:40)
[2021-02-09] MEDS: Aluminum & Magnesium Hydroxide 60 ML, diphenhydrAMINE 150 MG, Lidocaine 2% Viscous Solu... SSW SCH ×4 (07:50→22:36)
[2021-02-09] MEDS: Lidocaine 5% Patch TD SCH (07:50)
[2021-02-09] MEDS: TOLVAPTAN 30 MG TAB PO SCH (07:51)
[2021-02-09] MEDS: Senokot S 8.6-50 MG TAB PO SCH ×2 (07:51→20:39)
[2021-02-09] MEDS: Apixaban 2.5 MG TAB PO SCH ×2 (07:51→20:39)
[2021-02-09] MEDS: Carvedilol 6.25 MG TAB PO SCH ×2 (07:51→17:39)
[2021-02-09] MEDS: Lantus 1000 UNITS/10 ML VIAL SC SCH ×2 (07:52→20:40)
[2021-02-09] MEDS: HYDROcodone/Acetaminophen 7.5/325 mg Tablet PO PRN (09:27)
[2021-02-09 13:38] LABS: Sodium 130 mmol/L (136-145)
[2021-02-09] MEDS: HumaLOG 300 UNITS/3 ML VIAL SC PRN (17:40)
[2021-02-09] MEDS: Transdermal Patch Removal TOP SCH (20:45)
[2021-02-10] MEDS: Cephalexin 250 MG CAP PO SCH ×4 (00:06→17:57)
[2021-02-10] MEDS: HYDROcodone/Acetaminophen 7.5/325 mg Tablet PO PRN ×3 (00:35→20:48)
[2021-02-10] MEDS: Senokot S 8.6-50 MG TAB PO SCH ×2 (08:16→20:48)
[2021-02-10] MEDS: TOLVAPTAN 30 MG TAB PO SCH (08:16)
[2021-02-10] MEDS: Carvedilol 6.25 MG TAB PO SCH ×2 (08:17→17:58)
[2021-02-10] MEDS: Lantus 1000 UNITS/10 ML VIAL SC SCH ×2 (08:20→20:55)
[2021-02-10] MEDS: Apixaban 2.5 MG TAB PO SCH (08:20)
[2021-02-10] MEDS: Lidocaine 5% Patch TD SCH (08:21)
[2021-02-10 10:19] LABS: Mean Corpuscular HGB CONC 32.2 g/dL (32.0-36.0); Mean Corpuscular Hemoglobin 31.2 pg (27.0-31.0); Mean Platelet Volume 6.4 fL (7.4-10.4); Platelet Count 483 thou/uL (130-400); RBC Distribution Width 13.2 % (11.5-14.5); Red Blood Cell (RBC) Count 3.21 mill/uL (4.70-6.10); White Blood Cell (WBC) Count 9.1 thou/uL (4.8-10.8)
[2021-02-10 10:37] LABS: Anion Gap 9 mmol/L (10-20); BUN (Urea Nitrogen) 17 mg/dL (8.4-25.7); Calc. Creatinine Clearance 248 mL/min (70-130); Calcium 8.6 mg/dL (7.8-10.44); Carbon Dioxide 29 mmol/L (22-29); Chloride 95 mmol/L (98-107); Glucose 141 mg/dL (70-105); Potassium 4.6 mmol/L (3.5-5.1); Sodium 128 mmol/L (136-145)
[2021-02-10] MEDS: Aluminum & Magnesium Hydroxide 60 ML, diphenhydrAMINE 150 MG, Lidocaine 2% Viscous Solu... SSW SCH ×4 (10:52→20:58)
[2021-02-10] MEDS: Transdermal Patch Removal TOP SCH (20:57)
[2021-02-11] MEDS: Cephalexin 250 MG CAP PO SCH ×3 (00:07→12:42)
[2021-02-11] MEDS: HYDROcodone/Acetaminophen 7.5/325 mg Tablet PO PRN ×2 (05:12→20:06)
[2021-02-11 06:49] LABS: ALT (SGPT) 29 U/L (8-55); AST (SGOT) 25 U/L (5-34); Albumin 2.3 g/dL (3.5-5.0); Alkaline Phosphatase 81 U/L (40-110); Anion Gap 12 mmol/L (10-20); BUN (Urea Nitrogen) 16 mg/dL (8.4-25.7); Bilirubin, Total 0.6 mg/dL (0.2-1.2); Calc. Creatinine Clearance 238 mL/min (70-130); Calcium 8.8 mg/dL (7.8-10.44); Carbon Dioxide 26 mmol/L (22-29); Chloride 95 mmol/L (98-107); Globulin 6.8 g/dL (2.4-3.5); Glucose 143 mg/dL (70-105); Potassium 4.7 mmol/L (3.5-5.1); Protein, Total 9.1 g/dL (6.0-8.3); Sodium 128 mmol/L (136-145)
[2021-02-11] MEDS: TOLVAPTAN 30 MG TAB PO SCH (08:22)
[2021-02-11] MEDS: Aluminum & Magnesium Hydroxide 60 ML, diphenhydrAMINE 150 MG, Lidocaine 2% Viscous Solu... SSW SCH ×4 (08:23→20:32)
[2021-02-11] MEDS: Carvedilol 6.25 MG TAB PO SCH ×2 (08:23→16:19)
[2021-02-11] MEDS: Lantus 1000 UNITS/10 ML VIAL SC SCH ×2 (08:23→20:31)
[2021-02-11] MEDS: Lidocaine 5% Patch TD SCH (08:26)
[2021-02-11] MEDS: Senokot S 8.6-50 MG TAB PO SCH ×2 (08:26→20:06)
[2021-02-11] MEDS ORDERED: ALPRAZolam 0.5 MG TAB PO SCH (08:30)
[2021-02-11] MEDS ORDERED: Morphine 4 MG/ML VIAL SLOW IVP SCH (08:30)
[2021-02-11] MEDS ORDERED: Lidocaine 1% (PF) 30 ML VIAL SC SCH (08:45)
[2021-02-11] MEDS ORDERED: Tolvaptan 15 MG TAB PO SCH (09:00)
[2021-02-11] MEDS ORDERED: Lidocaine 1% (PF) 30 ML VIAL ONE (09:53)
[2021-02-11 12:11] LABS: Synovial Fluid, Protein 6.3 g/dL (Not Available)
[2021-02-11 13:33] LABS: RBC Count-Automated (BF) 26503 /cu.mm
[2021-02-11 13:48] LABS: BF Color Pink; Body Fluid Source Synovial Fluid; Clarity Cloudy/Turbid (Clear); Tube # EDTA; WBC/Nucleated-Auto (BF) Greater than 51000 uL
[2021-02-11 13:51] LABS: BF Segmented Neutrophils 60 %; Cell Count Non Hematic 25 %; Lymphocytes 15 %
[2021-02-11] MEDS: cefTRIAXone\\ROCEPHIN 1 GM in Sodium Chloride 0.9% 100 ML IVPB SCH (16:14)
[2021-02-11] MEDS: Transdermal Patch Removal TOP SCH (20:32)
[2021-02-12] MEDS: HYDROcodone/Acetaminophen 7.5/325 mg Tablet PO PRN (00:22)
[2021-02-12 06:12] LABS: Anion Gap 10 mmol/L (10-20); BUN (Urea Nitrogen) 16 mg/dL (8.4-25.7); Calc. Creatinine Clearance 248 mL/min (70-130); Calcium 8.9 mg/dL (7.8-10.44); Carbon Dioxide 28 mmol/L (22-29); Chloride 98 mmol/L (98-107); Glucose 99 mg/dL (70-105); Potassium 4.7 mmol/L (3.5-5.1); Sodium 131 mmol/L (136-145)
[2021-02-12] MEDS: Senokot S 8.6-50 MG TAB PO SCH ×2 (08:44→20:14)
[2021-02-12] MEDS: Carvedilol 6.25 MG TAB PO SCH ×2 (08:44→20:14)
[2021-02-12] MEDS: Aluminum & Magnesium Hydroxide 60 ML, diphenhydrAMINE 150 MG, Lidocaine 2% Viscous Solu... SSW SCH ×4 (08:44→20:16)
[2021-02-12] MEDS: Lidocaine 5% Patch TD SCH (08:44)
[2021-02-12] MEDS: Lantus 1000 UNITS/10 ML VIAL SC SCH ×2 (08:46→20:15)
[2021-02-12] MEDS ORDERED: Famotidine/PF 20 mg/2ml Vial ONE (15:12)
[2021-02-12] MEDS ORDERED: Midazolam HCl 2 mg/2 ml Vial ONE (15:12)
[2021-02-12] MEDS ORDERED: Ondansetron PF 4 MG/2 ML Vial ONE ×2 (15:12→16:10)
[2021-02-12] MEDS ORDERED: Bupivacaine PF 0.5% 30 ML VIAL ONE (15:45)
[2021-02-12] MEDS ORDERED: Fentanyl 100 MCG/2 ML VIAL ONE ×4 (15:58→18:00)
[2021-02-12] MEDS ORDERED: Lidocaine 1% PF 5 ML VIAL ONE (16:10)
[2021-02-12] MEDS ORDERED: Rocuronium Bromide 10 MG/ML (10ML VIAL) ONE (16:10)
[2021-02-12] MEDS ORDERED: PROPOFOL 200 MG/20 ML VIAL ONE (16:10)
[2021-02-12] MEDS: cefTRIAXone\\ROCEPHIN 1 GM in Sodium Chloride 0.9% 100 ML IVPB SCH (16:13)
[2021-02-12] MEDS ORDERED: cefTRIAXone\\ROCEPHIN 1 GM VIAL ONE (16:21)
[2021-02-12] MEDS: Ondansetron PF 4 MG/2 ML Vial IVP PRN (17:02)
[2021-02-12] MEDS ORDERED: SUGAMMADEX SODIUM 200 MG/2 ML VIAL ONE (17:05)
[2021-02-12] MEDS ORDERED: HYDROmorphone 0.5 MG/0.5 ML SYRINGE ONE ×3 (17:20→18:00)
[2021-02-12] MEDS ORDERED: Non-Formulary Medication 1 EACH PO PRN (17:52)
[2021-02-12] MEDS: TOLVAPTAN 30 MG TAB PO SCH (17:57)
[2021-02-12] MEDS ORDERED: Promethazine HCl 25 MG/ML VIAL IM/IV PRN (18:00)
[2021-02-12] MEDS ORDERED: Ondansetron HCl/PF 4 MG/2 ML Vial IVP PRN (18:00)
[2021-02-12] MEDS ORDERED: HYDROmorphone 2 MG/ML VIAL SLOW IVP PRN (18:00)
[2021-02-12] MEDS ORDERED: diphenhydrAMINE 25 MG CAP PO PRN (18:45)
[2021-02-12] MEDS ORDERED: fentaNYL Citrate/PF 2,000 MCG in Sodium Chloride 0.9% 60 ML IV PRN (18:45)
[2021-02-12] MEDS ORDERED: diphenhydrAMINE 50 MG/ML VIAL IM/IV PRN (18:45)
[2021-02-12] MEDS ORDERED: Promethazine HCl 25 MG/ML VIAL IM PRN (18:45)
[2021-02-12] MEDS ORDERED: Naloxone HCl 0.4 mg/ml Vial IV PRN (18:45)
[2021-02-12] MEDS: Transdermal Patch Removal TOP SCH (20:15)
[2021-02-13] MEDS: Aluminum & Magnesium Hydroxide 60 ML, diphenhydrAMINE 150 MG, Lidocaine 2% Viscous Solu... SSW SCH ×4 (07:22→20:40)
[2021-02-13] MEDS: Senokot S 8.6-50 MG TAB PO SCH ×2 (08:26→20:39)
[2021-02-13] MEDS: Lantus 1000 UNITS/10 ML VIAL SC SCH ×2 (08:27→20:40)
[2021-02-13] MEDS: TOLVAPTAN 30 MG TAB PO SCH (08:27)
[2021-02-13] MEDS: Carvedilol 6.25 MG TAB PO SCH ×2 (08:27→18:00)
[2021-02-13] MEDS: Lidocaine 5% Patch TD SCH (08:45)
[2021-02-13] MEDS: cefTRIAXone\\ROCEPHIN 1 GM in Sodium Chloride 0.9% 100 ML IVPB SCH (18:00)
[2021-02-13] MEDS: Transdermal Patch Removal TOP SCH (20:40)
[2021-02-14] MEDS: Aluminum & Magnesium Hydroxide 60 ML, diphenhydrAMINE 150 MG, Lidocaine 2% Viscous Solu... SSW SCH ×5 (10:32→21:19)
[2021-02-14] MEDS: Lidocaine 5% Patch TD SCH (10:32)
[2021-02-14] MEDS: TOLVAPTAN 30 MG TAB PO SCH (10:33)
[2021-02-14] MEDS: Senokot S 8.6-50 MG TAB PO SCH ×2 (10:33→20:51)
[2021-02-14] MEDS: Carvedilol 6.25 MG TAB PO SCH ×2 (10:34→18:00)
[2021-02-14] MEDS: Lantus 1000 UNITS/10 ML VIAL SC SCH ×2 (10:34→20:50)
[2021-02-14] MEDS: cefTRIAXone\\ROCEPHIN 2 GM in Sodium Chloride 0.9% 100 ML IVPB SCH (18:00)
[2021-02-14 18:10] LABS: Bilirubin Negative (Negative); Blood, Urine 1+ (Negative); Clarity Turbid (Clear); Glucose, Urine (Dipstick) Normal (Negative); Ketone, Urine Negative (Negative); Leukocyte 500 Leu/uL (Negative); Nitrite Negative (Negative); Protein, Urine (Dipstick) 20 mg/dL (Neg-Trace); Specific Gravity, Urine 1.012 (1.002-1.036); Squamous Epithelial None Seen HPF (0-3); WBC/HPF Greater than 50 HPF (0-3); pH, Urine 6.5 (5.0-9.0)
[2021-02-14 18:21] LABS: Bacteria/HPF 1+ HPF (None Seen); Yeast-Hyphae 1+ HPF (None Seen)
[2021-02-14 18:22] LABS: Urine Culture Reflex Yes Yes; Yeast-Budding 1+ HPF (None Seen)
[2021-02-14] MEDS: Transdermal Patch Removal TOP SCH (20:51)
[2021-02-14 21:09] LABS: Hemoglobin 8.5 g/dL (14.0-18.0); Mean Corpuscular HGB CONC 32.5 g/dL (32.0-36.0); Mean Corpuscular Hemoglobin 31.2 pg (27.0-31.0); Platelet Count 519 thou/uL (130-400); RBC Distribution Width 13.1 % (11.5-14.5); Red Blood Cell (RBC) Count 2.73 mill/uL (4.70-6.10); White Blood Cell (WBC) Count 11.5 thou/uL (4.8-10.8)
[2021-02-14 21:29] LABS: Anion Gap 8 mmol/L (10-20); BUN (Urea Nitrogen) 14 mg/dL (8.4-25.7); Calc. Creatinine Clearance 248 mL/min (70-130); Calcium 8.4 mg/dL (7.8-10.44); Carbon Dioxide 31 mmol/L (22-29); Chloride 98 mmol/L (98-107); Glucose 110 mg/dL (70-105); Potassium 4.6 mmol/L (3.5-5.1); Sodium 132 mmol/L (136-145)
[2021-02-15 06:18] LABS: Anion Gap 8 mmol/L (10-20); BUN (Urea Nitrogen) 12 mg/dL (8.4-25.7); Calc. Creatinine Clearance 258 mL/min (70-130); Calcium 8.4 mg/dL (7.8-10.44); Carbon Dioxide 32 mmol/L (22-29); Chloride 98 mmol/L (98-107); Glucose 75 mg/dL (70-105); Potassium 4.4 mmol/L (3.5-5.1); Sodium 134 mmol/L (136-145)
[2021-02-15] MEDS: Lidocaine 5% Patch TD SCH (07:40)
[2021-02-15] MEDS: TOLVAPTAN 30 MG TAB PO SCH (07:40)
[2021-02-15] MEDS: Carvedilol 6.25 MG TAB PO SCH ×2 (07:40→17:18)
[2021-02-15] MEDS: Senokot S 8.6-50 MG TAB PO SCH ×2 (07:40→20:50)
[2021-02-15] MEDS: Lantus 1000 UNITS/10 ML VIAL SC SCH ×2 (07:41→20:49)
[2021-02-15] MEDS: Aluminum & Magnesium Hydroxide 60 ML, diphenhydrAMINE 150 MG, Lidocaine 2% Viscous Solu... SSW SCH ×3 (12:18→20:53)
[2021-02-15] MEDS: cefTRIAXone\\ROCEPHIN 2 GM in Sodium Chloride 0.9% 100 ML IVPB SCH (17:18)
[2021-02-15] MEDS: Transdermal Patch Removal TOP SCH (20:51)
[2021-02-16] MEDS: TOLVAPTAN 30 MG TAB PO SCH (09:39)
[2021-02-16] MEDS: Lidocaine 5% Patch TD SCH (09:39)
[2021-02-16] MEDS: Aluminum & Magnesium Hydroxide 60 ML, diphenhydrAMINE 150 MG, Lidocaine 2% Viscous Solu... SSW SCH ×4 (09:39→20:12)
[2021-02-16] MEDS: Lantus 1000 UNITS/10 ML VIAL SC SCH ×2 (09:40→20:08)
[2021-02-16] MEDS: Carvedilol 6.25 MG TAB PO SCH ×2 (09:40→17:36)
[2021-02-16] MEDS: Senokot S 8.6-50 MG TAB PO SCH ×2 (09:41→20:06)
[2021-02-16] MEDS: cefTRIAXone\\ROCEPHIN 2 GM in Sodium Chloride 0.9% 100 ML IVPB SCH (17:36)
[2021-02-16] MEDS: Calcium Carbonate 500 MG ChewTAB PO PRN (20:06)
[2021-02-16] MEDS: Transdermal Patch Removal TOP SCH (20:43)
[2021-02-17 06:02] LABS: #Basophils 0.1 thou/uL (0.0-0.2); #Eosinphils 0.2 thou/uL (0.0-0.7); #Lymphocytes 1.5 thou/uL (1.20-3.40); %Basophils 0.5 % (0.0-1.0); %Eosinophils 1.6 % (0.0-10.0); %Lymphocytes 13.1 % (21.0-51.0); %Monocytes 8.5 % (0.0-10.0); %Neutrophils 76.4 % (42.0-75.0); Hemoglobin 8.6 g/dL (14.0-18.0); Mean Corpuscular HGB CONC 32.2 g/dL (32.0-36.0); Mean Corpuscular Hemoglobin 31.1 pg (27.0-31.0); Mean Corpuscular Volume 96.6 fL (78.0-98.0); Mean Platelet Volume 6.2 fL (7.4-10.4); Platelet Count 495 thou/uL (130-400); RBC Distribution Width 13.4 % (11.5-14.5); Red Blood Cell (RBC) Count 2.78 mill/uL (4.70-6.10); White Blood Cell (WBC) Count 11.8 thou/uL (4.8-10.8)
[2021-02-17 06:23] LABS: Anion Gap 10 mmol/L (10-20); BUN (Urea Nitrogen) 10 mg/dL (8.4-25.7); Calc. Creatinine Clearance 248 mL/min (70-130); Calcium 8.7 mg/dL (7.8-10.44); Carbon Dioxide 27 mmol/L (22-29); Chloride 99 mmol/L (98-107); Glucose 174 mg/dL (70-105); Potassium 4.3 mmol/L (3.5-5.1); Sodium 132 mmol/L (136-145)
[2021-02-17] MEDS: Aluminum & Magnesium Hydroxide 60 ML, diphenhydrAMINE 150 MG, Lidocaine 2% Viscous Solu... SSW SCH ×4 (08:20→20:40)
[2021-02-17] MEDS: Lantus 1000 UNITS/10 ML VIAL SC SCH ×2 (08:20→20:40)
[2021-02-17] MEDS: Senokot S 8.6-50 MG TAB PO SCH ×2 (08:20→20:42)
[2021-02-17] MEDS: Carvedilol 6.25 MG TAB PO SCH ×2 (08:20→16:42)
[2021-02-17] MEDS: Lidocaine 5% Patch TD SCH (08:22)
[2021-02-17] MEDS: Bisacodyl 10 MG SUPP PR SCH ×2 (12:01→17:57)
[2021-02-17] MEDS ORDERED: Polyethylene Glycol 3350 17 GM Packet PO SCH (12:15)
[2021-02-17] MEDS: Megestrol Acetate 800 MG/20 ML UDCUP PO SCH ×2 (12:16→16:43)
[2021-02-17] MEDS: Ondansetron PF 4 MG/2 ML Vial IVP PRN (19:44)
[2021-02-17] MEDS: HYDROcodone/Acetaminophen 10/325 mg Tablet PO PRN (19:44)
[2021-02-17] MEDS: Zolpidem Tartrate 5 MG TAB PO PRN (20:39)
[2021-02-17] MEDS: Transdermal Patch Removal TOP SCH (20:42)
[2021-02-18] MEDS: Ondansetron PF 4 MG/2 ML Vial IVP PRN (02:41)
[2021-02-18] MEDS ORDERED: Bisacodyl 10 MG SUPP PR PRN (06:00)
[2021-02-18] MEDS: Aluminum & Magnesium Hydroxide 60 ML, diphenhydrAMINE 150 MG, Lidocaine 2% Viscous Solu... SSW SCH ×4 (08:40→20:25)
[2021-02-18] MEDS: Megestrol Acetate 800 MG/20 ML UDCUP PO SCH ×3 (08:40→16:28)
[2021-02-18] MEDS: Carvedilol 6.25 MG TAB PO SCH ×2 (08:41→16:28)
[2021-02-18] MEDS: Escitalopram Oxalate 10 mg Tablet PO SCH (08:41)
[2021-02-18] MEDS: Senokot S 8.6-50 MG TAB PO SCH ×2 (08:42→20:21)
[2021-02-18] MEDS: Polyethylene Glycol 3350 17 GM Packet PO SCH (08:42)
[2021-02-18] MEDS: Lidocaine 5% Patch TD SCH (08:44)
[2021-02-18] MEDS: Lantus 1000 UNITS/10 ML VIAL SC SCH ×2 (08:45→20:23)
[2021-02-18] MEDS ORDERED: Magnesium Citrate 300 ML BOT PO PRN (15:38)
[2021-02-18] MEDS ORDERED: Fleet Enema 133 ML BOT FS SCH (17:15)
[2021-02-18] MEDS ORDERED: Mineral Oil ENEMA PR SCH ×2 (18:00→18:30)
[2021-02-18] MEDS: Transdermal Patch Removal TOP SCH (20:25)
[2021-02-18] MEDS: Zolpidem Tartrate 5 MG TAB PO PRN (20:30)
[2021-02-19] MEDS ORDERED: Mineral Oil ENEMA PR SCH (02:15)
[2021-02-19] MEDS: Aluminum & Magnesium Hydroxide 60 ML, diphenhydrAMINE 150 MG, Lidocaine 2% Viscous Solu... SSW SCH ×4 (08:45→20:52)
[2021-02-19] MEDS: Megestrol Acetate 800 MG/20 ML UDCUP PO SCH ×3 (08:45→16:27)
[2021-02-19] MEDS: Polyethylene Glycol 3350 17 GM Packet PO SCH (08:48)
[2021-02-19] MEDS: Escitalopram Oxalate 10 mg Tablet PO SCH (08:49)
[2021-02-19] MEDS: Senokot S 8.6-50 MG TAB PO SCH ×2 (08:49→20:40)
[2021-02-19] MEDS: Carvedilol 6.25 MG TAB PO SCH ×2 (08:50→16:27)
[2021-02-19] MEDS: Lidocaine 5% Patch TD SCH (08:51)
[2021-02-19] MEDS: Lantus 1000 UNITS/10 ML VIAL SC SCH ×2 (08:59→20:43)
[2021-02-19] MEDS: HYDROcodone/Acetaminophen 10/325 mg Tablet PO PRN ×2 (12:47→20:41)
[2021-02-19] MEDS: Transdermal Patch Removal TOP SCH (20:44)
[2021-02-20] MEDS: HYDROcodone/Acetaminophen 10/325 mg Tablet PO PRN ×4 (00:39→21:57)
[2021-02-20] MEDS: Aluminum & Magnesium Hydroxide 60 ML, diphenhydrAMINE 150 MG, Lidocaine 2% Viscous Solu... SSW SCH ×4 (08:12→20:19)
[2021-02-20] MEDS: Escitalopram Oxalate 10 mg Tablet PO SCH (08:12)
[2021-02-20] MEDS: Megestrol Acetate 800 MG/20 ML UDCUP PO SCH ×3 (08:12→17:41)
[2021-02-20] MEDS: Senokot S 8.6-50 MG TAB PO SCH ×2 (08:13→20:18)
[2021-02-20] MEDS: Carvedilol 6.25 MG TAB PO SCH ×2 (08:13→17:41)
[2021-02-20] MEDS: Polyethylene Glycol 3350 17 GM Packet PO SCH (08:13)
[2021-02-20] MEDS: Lidocaine 5% Patch TD SCH (08:13)
[2021-02-20] MEDS: Lantus 1000 UNITS/10 ML VIAL SC SCH ×2 (08:14→20:18)
[2021-02-20] MEDS: cefTRIAXone\\ROCEPHIN 2 GM in Sodium Chloride 0.9% 100 ML IVPB SCH (10:45)
[2021-02-20] MEDS: Transdermal Patch Removal TOP SCH (20:46)
[2021-02-21] MEDS: Calcium Carbonate 500 MG ChewTAB PO PRN (01:14)
[2021-02-21] MEDS: HYDROcodone/Acetaminophen 10/325 mg Tablet PO PRN ×2 (01:46→05:33)
[2021-02-21] MEDS: Escitalopram Oxalate 10 mg Tablet PO SCH (08:27)
[2021-02-21] MEDS: Carvedilol 6.25 MG TAB PO SCH ×2 (08:27→16:33)
[2021-02-21] MEDS: Aluminum & Magnesium Hydroxide 60 ML, diphenhydrAMINE 150 MG, Lidocaine 2% Viscous Solu... SSW SCH ×4 (08:28→20:14)
[2021-02-21] MEDS: Megestrol Acetate 800 MG/20 ML UDCUP PO SCH ×2 (08:28→12:56)
[2021-02-21] MEDS: Lantus 1000 UNITS/10 ML VIAL SC SCH ×2 (08:28→20:12)
[2021-02-21] MEDS: Polyethylene Glycol 3350 17 GM Packet PO SCH (08:29)
[2021-02-21] MEDS: Senokot S 8.6-50 MG TAB PO SCH ×2 (08:29→20:13)
[2021-02-21] MEDS: Lidocaine 5% Patch TD SCH (08:33)
[2021-02-21] MEDS: cefTRIAXone\\ROCEPHIN 2 GM in Sodium Chloride 0.9% 100 ML IVPB SCH (12:56)
[2021-02-21] MEDS: Acetaminophen/Codeine 30-300mg Tablet PO PRN (18:10)
[2021-02-21] MEDS: Transdermal Patch Removal TOP SCH (20:41)
[2021-02-22] MEDS: Acetaminophen/Codeine 30-300mg Tablet PO PRN ×4 (02:07→20:29)
[2021-02-22] MEDS: Aluminum & Magnesium Hydroxide 60 ML, diphenhydrAMINE 150 MG, Lidocaine 2% Viscous Solu... SSW SCH ×4 (08:31→20:31)
[2021-02-22] MEDS: Escitalopram Oxalate 10 mg Tablet PO SCH (08:37)
[2021-02-22] MEDS: Carvedilol 6.25 MG TAB PO SCH ×2 (08:37→18:00)
[2021-02-22] MEDS: Polyethylene Glycol 3350 17 GM Packet PO SCH (08:38)
[2021-02-22] MEDS: Senokot S 8.6-50 MG TAB PO SCH ×2 (08:39→20:32)
[2021-02-22] MEDS: Lidocaine 5% Patch TD SCH (08:39)
[2021-02-22] MEDS: Lantus 1000 UNITS/10 ML VIAL SC SCH ×2 (08:40→20:32)
[2021-02-22] MEDS: cefTRIAXone\\ROCEPHIN 2 GM in Sodium Chloride 0.9% 100 ML IVPB SCH (12:46)
[2021-02-22] MEDS: Calcium Carbonate 500 MG ChewTAB PO PRN (18:02)
[2021-02-22] MEDS: Transdermal Patch Removal TOP SCH (20:32)
[2021-02-23] MEDS: Carvedilol 6.25 MG TAB PO SCH ×2 (08:05→16:50)
[2021-02-23] MEDS: Escitalopram Oxalate 10 mg Tablet PO SCH (08:05)
[2021-02-23] MEDS: Aluminum & Magnesium Hydroxide 60 ML, diphenhydrAMINE 150 MG, Lidocaine 2% Viscous Solu... SSW SCH ×3 (08:06→16:51)
[2021-02-23] MEDS: Lidocaine 5% Patch TD SCH (08:07)
[2021-02-23] MEDS: Senokot S 8.6-50 MG TAB PO SCH ×2 (08:07→20:59)
[2021-02-23] MEDS: Polyethylene Glycol 3350 17 GM Packet PO SCH (08:08)
[2021-02-23] MEDS: Lantus 1000 UNITS/10 ML VIAL SC SCH ×2 (08:14→21:01)
[2021-02-23] MEDS: cefTRIAXone\\ROCEPHIN 2 GM in Sodium Chloride 0.9% 100 ML IVPB SCH (12:28)
[2021-02-23] MEDS: Acetaminophen/Codeine 30-300mg Tablet PO PRN ×2 (17:00→21:00)
[2021-02-23] MEDS: Transdermal Patch Removal TOP SCH (21:04)
[2021-02-24] MEDS: Acetaminophen/Codeine 30-300mg Tablet PO PRN ×2 (05:31→13:06)
[2021-02-24 07:07] LABS: Anion Gap 10 mmol/L (10-20); BUN (Urea Nitrogen) 12 mg/dL (8.4-25.7); Calc. Creatinine Clearance 244 mL/min (70-130); Calcium 8.6 mg/dL (7.8-10.44); Carbon Dioxide 26 mmol/L (22-29); Chloride 99 mmol/L (98-107); Glucose 116 mg/dL (70-105); Potassium 4.4 mmol/L (3.5-5.1); Sodium 131 mmol/L (136-145)
[2021-02-24 07:18] LABS: #Basophils 0.1 thou/uL (0.0-0.2); #Eosinphils 0.2 thou/uL (0.0-0.7); #Lymphocytes 1.7 thou/uL (1.20-3.40); #Monocytes 0.9 thou/uL (0.11-0.59); #Neutrophils 6.8 thou/uL (1.40-6.50); %Basophils 0.6 % (0.0-1.0); %Eosinophils 1.6 % (0.0-10.0); %Lymphocytes 18.1 % (21.0-51.0); %Monocytes 9.1 % (0.0-10.0); %Neutrophils 70.5 % (42.0-75.0); Hemoglobin 8.6 g/dL (14.0-18.0); Mean Corpuscular HGB CONC 31.6 g/dL (32.0-36.0); Mean Corpuscular Hemoglobin 30.2 pg (27.0-31.0); Mean Corpuscular Volume 95.4 fL (78.0-98.0); Mean Platelet Volume 6.6 fL (7.4-10.4); Platelet Count 391 thou/uL (130-400); RBC Distribution Width 13.6 % (11.5-14.5); Red Blood Cell (RBC) Count 2.86 mill/uL (4.70-6.10); White Blood Cell (WBC) Count 9.6 thou/uL (4.8-10.8)
[2021-02-24] MEDS: Carvedilol 6.25 MG TAB PO SCH ×2 (08:55→16:33)
[2021-02-24] MEDS: Escitalopram Oxalate 10 mg Tablet PO SCH (08:57)
[2021-02-24] MEDS: Senokot S 8.6-50 MG TAB PO SCH ×2 (08:57→20:26)
[2021-02-24] MEDS: Polyethylene Glycol 3350 17 GM Packet PO SCH (08:58)
[2021-02-24] MEDS: Lidocaine 5% Patch TD SCH (09:01)
[2021-02-24] MEDS: Lantus 1000 UNITS/10 ML VIAL SC SCH ×2 (09:02→20:20)
[2021-02-24] MEDS: cefTRIAXone\\ROCEPHIN 2 GM in Sodium Chloride 0.9% 100 ML IVPB SCH (13:02)
[2021-02-24] MEDS: Transdermal Patch Removal TOP SCH (19:59)
[2021-02-25] MEDS: Acetaminophen/Codeine 30-300mg Tablet PO PRN ×2 (00:36→12:27)
[2021-02-25] MEDS: Senokot S 8.6-50 MG TAB PO SCH ×2 (08:17→20:13)
[2021-02-25] MEDS: Carvedilol 6.25 MG TAB PO SCH ×2 (08:18→17:36)
[2021-02-25] MEDS: Escitalopram Oxalate 10 mg Tablet PO SCH (08:18)
[2021-02-25] MEDS: Polyethylene Glycol 3350 17 GM Packet PO SCH (08:18)
[2021-02-25] MEDS: Lantus 1000 UNITS/10 ML VIAL SC SCH ×2 (08:22→20:13)
[2021-02-25] MEDS: Lidocaine 5% Patch TD SCH (08:25)
[2021-02-25] MEDS ORDERED: Enoxaparin Sodium 40 MG/0.4 ML SYRINGE SC SCH (11:00)
[2021-02-25] MEDS: cefTRIAXone\\ROCEPHIN 2 GM in Sodium Chloride 0.9% 100 ML IVPB SCH (12:28)
[2021-02-25] MEDS: Transdermal Patch Removal TOP SCH (20:13)
[2021-02-26] MEDS: Carvedilol 6.25 MG TAB PO SCH ×2 (07:54→18:00)
[2021-02-26] MEDS: Senokot S 8.6-50 MG TAB PO SCH ×2 (07:54→20:50)
[2021-02-26] MEDS: Polyethylene Glycol 3350 17 GM Packet PO SCH (07:54)
[2021-02-26] MEDS: Lidocaine 5% Patch TD SCH (07:54)
[2021-02-26] MEDS: Enoxaparin Sodium 40 MG/0.4 ML SYRINGE SC SCH (07:55)
[2021-02-26] MEDS: Escitalopram Oxalate 10 mg Tablet PO SCH (07:55)
[2021-02-26] MEDS: Lantus 1000 UNITS/10 ML VIAL SC SCH ×2 (09:05→20:50)
[2021-02-26] MEDS: Acetaminophen/Codeine 30-300mg Tablet PO PRN (11:26)
[2021-02-26] MEDS: cefTRIAXone\\ROCEPHIN 2 GM in Sodium Chloride 0.9% 100 ML IVPB SCH (13:43)
[2021-02-26] MEDS: Transdermal Patch Removal TOP SCH (20:51)
[2021-02-27] MEDS: Escitalopram Oxalate 10 mg Tablet PO SCH (08:29)
[2021-02-27] MEDS: Senokot S 8.6-50 MG TAB PO SCH ×2 (08:30→21:15)
[2021-02-27] MEDS: Lantus 1000 UNITS/10 ML VIAL SC SCH ×2 (08:30→21:15)
[2021-02-27] MEDS: Enoxaparin Sodium 40 MG/0.4 ML SYRINGE SC SCH (08:30)
[2021-02-27] MEDS: Polyethylene Glycol 3350 17 GM Packet PO SCH (08:30)
[2021-02-27] MEDS: Carvedilol 6.25 MG TAB PO SCH ×2 (08:31→16:27)
[2021-02-27] MEDS: Acetaminophen/Codeine 30-300mg Tablet PO PRN ×3 (08:33→21:16)
[2021-02-27] MEDS: Lidocaine 5% Patch TD SCH (08:33)
[2021-02-27] MEDS: cefTRIAXone\\ROCEPHIN 2 GM in Sodium Chloride 0.9% 100 ML IVPB SCH (12:42)
[2021-02-27] MEDS: Transdermal Patch Removal TOP SCH (21:17)
[2021-02-28 08:10] VITALS: TEMP 98.7
[2021-02-28 08:26] VITALS: BMI 49.8
[2021-02-28] MEDS: Carvedilol 6.25 MG TAB PO SCH ×2 (08:51→16:07)
[2021-02-28] MEDS: Acetaminophen/Codeine 30-300mg Tablet PO PRN ×3 (08:52→19:58)
[2021-02-28] MEDS: Enoxaparin Sodium 40 MG/0.4 ML SYRINGE SC SCH (08:52)
[2021-02-28] MEDS: Escitalopram Oxalate 10 mg Tablet PO SCH (08:52)
[2021-02-28] MEDS: Lantus 1000 UNITS/10 ML VIAL SC SCH (08:52)
[2021-02-28] MEDS: Lidocaine 5% Patch TD SCH (08:52)
[2021-02-28] MEDS: Polyethylene Glycol 3350 17 GM Packet PO SCH (09:03)
[2021-02-28] MEDS: Senokot S 8.6-50 MG TAB PO SCH ×2 (09:03→20:02)
[2021-02-28] MEDS: cefTRIAXone\\ROCEPHIN 2 GM in Sodium Chloride 0.9% 100 ML IVPB SCH (13:14)
[2021-02-28 14:39] VITALS: BP 109/62
== END 2021-02-28 20:35 | DRG 853 ==
LOC: ERS 10:48 → ERHOLD 12:42 → IMCU/EMU 01-21 02:04 → T4-B 01-21 20:24
PROVIDERS: ADMIT Internal Medicine; ATTEND Hospitalist
PROC: 0S9C3ZZ Drainage of Right Knee Joint, Percutaneous Approach (ICD-10-PCS; principal; 2021-01-29)
PROC: 0S9C3ZZ Drainage of Right Knee Joint, Percutaneous Approach (ICD-10-PCS; 2021-02-11)
PROC: 0MBN4ZZ Excision of Right Knee Bursa and Ligament, Percutaneous Endoscopic Approach (ICD-10-PCS; 2021-02-12)
DX: A40.9 Streptococcal sepsis, unspecified (principal); I50.33 Acute on chronic diastolic (congestive) heart failure; L03.116 Cellulitis of left lower limb; E87.2 Acidosis; Z68.42 Body mass index [BMI] 45.0-49.9, adult; N17.9 Acute kidney failure, unspecified; I48.92 Unspecified atrial flutter; B37.0 Candidal stomatitis; L03.115 Cellulitis of right lower limb; E87.1 Hypo-osmolality and hyponatremia; M00.9 Pyogenic arthritis, unspecified; R65.20 Severe sepsis without septic shock; Z66 Do not resuscitate; E87.5 Hyperkalemia; K59.00 Constipation, unspecified; M16.12 Unilateral primary osteoarthritis, left hip; E66.01 Morbid (severe) obesity due to excess calories; I48.0 Paroxysmal atrial fibrillation; G47.33 Obstructive sleep apnea (adult) (pediatric); E11.65 Type 2 diabetes mellitus with hyperglycemia; I87.8 Other specified disorders of veins; F32.9 Major depressive disorder, single episode, unspecified; Z20.822 Contact with and (suspected) exposure to COVID-19; Z86.16 Personal history of COVID-19; Z86.718 Personal history of other venous thrombosis and embolism; Z98.890 Other specified postprocedural states; Z79.899 Other long term (current) drug therapy; Z79.84 Long term (current) use of oral hypoglycemic drugs; Z99.89 Dependence on other enabling machines and devices; Z79.01 Long term (current) use of anticoagulants; Z98.61 Coronary angioplasty status
CPT/HCPCS: 0240U; 36415; 36416; 36600; 51701; 71045; 71275; 72192; 80048; 80053; 80202; 81001; 81003; 82436; 82533; 82805; 82945; 83605; 83735; 83880; 83930; 83935; 84133; 84157; 84295; 84300; 84443; 84484; 84550; 85025; 85027; 85060; 85610; 85652; 85730; 86140; 87040; 87070; 87077; 87086; 87149; 87186; 87205; 89051; 89060; 93005; 93306; 94640; 94660; 94760; 96365; 96367; 96375; J0690; J0692; J0696; J1170; J1650; J1815; J1885; J1940; J2001; J2185; J2250; J2270; J2405; J2704; J3010; J3370; J3490; J7620; P9047; Q0163; Q9967; S0020; S0028

== ENCOUNTER 2021-04-24 11:38 | Emergency (ER) | payer SELFPAY ==
[2021-04-24 13:04] LABS: #Eosinphils 0.1 thou/uL (0.0-0.7); #Lymphocytes 1.5 thou/uL (1.20-3.40); #Monocytes 0.8 thou/uL (0.11-0.59); #Neutrophils 5.4 thou/uL (1.40-6.50); %Basophils 0.6 % (0.0-1.0); %Eosinophils 1.3 % (0.0-10.0); %Lymphocytes 18.8 % (21.0-51.0); %Monocytes 10.3 % (0.0-10.0); %Neutrophils 68.9 % (42.0-75.0); Hemoglobin 9.9 g/dL (14.0-18.0); Mean Corpuscular HGB CONC 31.4 g/dL (32.0-36.0); Mean Corpuscular Volume 95.4 fL (78.0-98.0); Mean Platelet Volume 6.9 fL (7.4-10.4); Platelet Count 357 thou/uL (130-400); RBC Distribution Width 14.9 % (11.5-14.5); Red Blood Cell (RBC) Count 3.31 mill/uL (4.70-6.10); White Blood Cell (WBC) Count 7.8 thou/uL (4.8-10.8)
[2021-04-24 13:23] LABS: ALT (SGPT) 13 U/L (8-55); AST (SGOT) 12 U/L (5-34); Alkaline Phosphatase 42 U/L (40-110); Anion Gap 13 mmol/L (10-20); BUN (Urea Nitrogen) 20 mg/dL (8.4-25.7); Bilirubin, Total 0.5 mg/dL (0.2-1.2); Calc. Creatinine Clearance 0 mL/min (70-130); Calcium 9.2 mg/dL (7.8-10.44); Carbon Dioxide 22 mmol/L (22-29); Chloride 101 mmol/L (98-107); Globulin 4.6 g/dL (2.4-3.5); Glucose 81 mg/dL (70-105); Potassium 4.3 mmol/L (3.5-5.1); Protein, Total 7.6 g/dL (6.0-8.3); Sodium 132 mmol/L (136-145)
[2021-04-24 15:08] LABS: Bilirubin Negative (Negative); Blood, Urine Negative (Negative); Glucose, Urine (Dipstick) Negative (Negative); Ketone, Urine Negative (Negative); Leukocyte Negative (Negative); Nitrite Negative (Negative); Protein, Urine (Dipstick) Negative (Neg-Trace); Specific Gravity, Urine 1.025 (1.005-1.030); pH, Urine 5.5 (5.0-9.0)
[2021-04-24 15:14] LABS: Bacteria/HPF None Seen HPF (None Seen); Squamous Epithelial 0-3 HPF (0-3)
[2021-04-24 15:15] LABS: Clarity Clear (Clear)
[2021-04-24 15:17] LABS: RBC/HPF 0-3 HPF (0-3)
== END 2021-04-24 15:18 ==
LOC: ERS 11:38
DX: I95.9 Hypotension, unspecified (principal); Z79.899 Other long term (current) drug therapy; Z79.84 Long term (current) use of oral hypoglycemic drugs; Z79.01 Long term (current) use of anticoagulants; I48.91 Unspecified atrial fibrillation; E11.9 Type 2 diabetes mellitus without complications; I50.9 Heart failure, unspecified
CPT/HCPCS: 36415; 80053; 81003; 83605; 84443; 84484; 85025; 87086; 93005

== ENCOUNTER 2021-05-05 10:12 | Emergency (ER) | payer SELFPAY | END 2021-05-05 13:10 | disposition home or self-care (01) | LOC: ERS 10:12 | DX: S09.90XA Unspecified injury of head, initial encounter (principal); M54.2 Cervicalgia; M25.512 Pain in left shoulder; I48.91 Unspecified atrial fibrillation; E11.9 Type 2 diabetes mellitus without complications; M19.90 Unspecified osteoarthritis, unspecified site; I50.9 Heart failure, unspecified; Z79.84 Long term (current) use of oral hypoglycemic drugs; Z86.718 Personal history of other venous thrombosis and embolism; Z79.899 Other long term (current) drug therapy; W06.XXXA Fall from bed, initial encounter | CPT/HCPCS: 70450; 72125; 93005 ==

== ENCOUNTER 2024-01-19 10:20 | Emergency (ER) | payer SELFPAY ==
[2024-01-19] MEDS ORDERED: Ketorolac Tromethamine 30 MG (1 mL) VIAL ONE (12:15)
== END 2024-01-19 14:58 | disposition home or self-care (01) ==
LOC: ERS 10:20
DX: M79.605 Pain in left leg (principal); M16.12 Unilateral primary osteoarthritis, left hip; E11.9 Type 2 diabetes mellitus without complications; I48.91 Unspecified atrial fibrillation; I50.9 Heart failure, unspecified; Z55.6 Problems related to health literacy
CPT/HCPCS: J1885